=== PATIENT | female | born 1950 | race Two or more races ===

== ENCOUNTER 2018-10-29 16:29 | Inpatient (IN) | payer MEDICARE, OTHER ==
[~2018-10-29] VITALS: Ht 152.4 cm; Wt 54.0 kg
[2018-10-29 16:30] VITALS: BP 111/60
--- NOTE | 2018-10-29 16:30 | NUR ---
ED Nurse Note: Pt brought from [facility] due to pt pulled out G-Tube at noon today. pt aaox1 but cooperative and follows commands. G-tube site has yellow and green drainage and was irrigated with NS. skin clean and intact but pressure ulcer noted on coccyx. no drainage noted.
--- NOTE | 2018-10-29 18:00 | NUR ---
ED Nurse Note: G-Tube size 20Fr was inserted by Dr. Baires. pt tolerated pain well.
--- NOTE | 2018-10-29 18:30 | Emergency Room Report ---
History of Present Illness General Chief Complaint: Malfunctioning Gastric Tube Source: Patient, Medical Record, EMS, PMD Present Illness HPI This patient presents from a halfway facility for G-tube dislodgment. Earlier today around noon the patient pulled out her G-tube. There are no other complaints. Allergies: Coded Allergies: No Known Allergies (Unverified , 10/29/18) Patient History Past Medical History: none, see triage record, HTN, dementia, other - FTT Past Surgical History: other - G-TUBE Social History: Denies: smoking, alcohol use, drug use Reviewed Nursing Documentation: PMH: Agreed; PSxH: Agreed Nursing Documentation-PMH Hx Hypertension: Yes Hx Diabetes: Yes Review of Systems All Other Systems: negative except mentioned in HPI Physical Exam Vital Signs Date Time Temp Pulse Resp B/P (MAP) Pulse Ox O2 Delivery O2 Flow Rate FiO2 10/29/18 16:30 98.9 95 20 111/60 100 Room Air Sp02 EP Interpretation: reviewed, normal General Appearance: no apparent distress, alert, GCS 15, non-toxic Head: normocephalic, atraumatic Eyes: bilateral eye normal inspection ENT: hearing grossly normal, normal pharynx, no angioedema, normal voice Neck: full range of motion, supple/symm/no masses Respiratory: chest non-tender, lungs clear, normal breath sounds, no respiratory distress, no retraction, no accessory muscle use, speaking full sentences Cardiovascular #1: regular rate, rhythm, no edema Gastrointestinal: normal bowel sounds, non tender, soft, non-distended, no guarding, no rebound Rectal: deferred Musculoskeletal: back normal, gait/station normal, normal range of motion, non- tender Neurologic: alert, responsive, speech normal, grossly normal Psychiatric: judgement/insight normal, memory normal, mood/affect normal, no suicidal/homicidal ideation Skin: warm/dry, well hydrated, other - See RN skin exam Medical Decision Making Diagnostic Impression: Primary Impression: PEG (percutaneous endoscopic gastrostomy) adjustment/replacement/removal ER Course This patient presents for G-tube replacement. The G-tube was replaced in the typical manner without complication or incident. A KUB was obtained which showed Gastrografin consistent with appropriate placement in the stomach. The patient was returned to the halfway facility. Other X-Ray Diagnostic Results Other X-Ray Diagnostic Results : X-Ray ordered: KUB # of Views/Limited Vs Complete: 1 View Indication: Other - tube placement Interpretation: other - Findings c/w appropriate G-tube location. Impression: Other - See above. Electronically Signed by: Keeley Sharpe DO Last Vital Signs Date Time Temp Pulse Resp B/P (MAP) Pulse Ox O2 Delivery O2 Flow Rate FiO2 10/29/18 16:30 99.1 94 18 96/60 96 Room Air Status: improved Disposition: HOME, SELF-CARE Condition: Improved Patient Instructions: Gastrostomy Tube Home Guide, Adult Keeley Sharpe DO Oct 29, 2018 18:30
--- NOTE | 2018-10-29 18:41 | NUR ---
ED Nurse Note: KUB done with solution. and 100cc of NS was flushed.
--- NOTE | 2018-10-29 19:05 | NUR ---
ED Nurse Note: pt was moved to hallway bed due to stable condition.
--- NOTE | 2018-10-29 19:10 | NUR ---
HAND-OFF: Report given to SAMIR Castro. Addendum: 10/29/18 at 1939 by [email or web address] HAND-OFF: Report given to RN. GARIMA Castro done and waiting for the result for the G-tube placement.
--- NOTE | 2018-10-29 19:25 | NUR ---
ED Nurse Note: RECIEVED REPORT FROM AM NURSE TO RESUME CARE, PT IS IN HALLWAY BED, HAS BEEN MOVED FROM BED 6, NURSE UN-AWARE, ORDERS NOT COMPLETED, PT IS AWAKE, ALERT AND ORIENTED X 2, TO NAME AND PLACE ONLY, PT SON IS AT BEDSIDE, WILL RESUME ORDERD CARE AND CONTINUE TO CLOSELY MONITOR.
[2018-10-29] MEDS ORDERED: ACETAMINOP160 MG/5 M GT (19:39)
[2018-10-29] MEDS ORDERED: DOCUSATE S50 MG/5 ML GT (19:41)
[2018-10-29] MEDS ORDERED: LISINOPRIL-HCT1 EAC2 GT (19:45)
[2018-10-29] MEDS ORDERED: LISINOPRIL10 MG GT (19:45)
[2018-10-29] MEDS ORDERED: METOPROLOL SUCC50 MG GT (19:48)
[2018-10-29] MEDS ORDERED: REGLAN5 MG GT (19:48)
[2018-10-29] MEDS ORDERED: AMLODIPINE BESY10 MG GT (19:55)
[2018-10-29] MEDS ORDERED: EFFER-K 20 MEQ20 MEQ GT (20:00)
[2018-10-29] MEDS ORDERED: DIPHENHYDRAMINE25 M1 ORAL (20:00)
[2018-10-29] MEDS ORDERED: LANTUS SOL100 UNIT/1 SUBQ (20:03)
[2018-10-29] MEDS ORDERED: ZOFRAN4 M3 GT (20:04)
[2018-10-29] MEDS ORDERED: MULTIVITAMINS1 EAC8 GT (20:05)
[2018-10-29 20:15] VITALS: BP 122/71
[2018-10-29 20:45] LABS: BASOPHILS % (AUTO) 2.4 % (0.0-2.0); EOSINOPHILS % (AUTO) 2.3 % (0.0-3.0); HEMATOCRIT 30.8 % (37.0-47.0); HEMOGLOBIN 9.9 G/DL (12.0-16.0); LYMPHOCYTES % (AUTO) 24.7 % (20.0-45.0); MEAN CORPUSCULAR VOLUME 90 FL (80-99); MONOCYTES % (AUTO) 11.3 % (1.0-10.0); NEUTROPHILS % (AUTO) 59.3 % (45.0-75.0); PLATELET COUNT 606 K/UL (150-450); RED BLOOD COUNT 3.43 M/UL (4.20-5.40); RED CELL DISTRIBUTION WIDTH 16.5 % (11.6-14.8); WHITE BLOOD COUNT 8.5 K/UL (4.8-10.8)
--- NOTE | 2018-10-29 21:00 | NUR ---
ED Nurse Note: NO ACUTE CHANGES OR INCREASED DISTRESS, PT TO BE ADMITTED, IV SITE PATENT, RECIEVING IV ANTIBIOTICS, NO S/S OF ADVERSE REACTION NOTED, TOLERATING WELL, PT ALSO INCONTINENT OF URINE AND STOOL, GIVEN BATH AND LINEN CHANGE, SKIN IS INTACT, WILL CONTINUE OT MONITOR WHILE WAITING FOR BED FOR ADMISISON TO HOSPITAL.
[2018-10-29 21:01] LABS: ALANINE AMINOTRANSFERASE 19 U/L (12-78); ALBUMIN 2.6 G/DL (3.4-5.0); ALBUMIN/GLOBULIN RATIO 0.4 (1.0-2.7); ALKALINE PHOSPHATASE 112 U/L (46-116); ANION GAP 6 mmol/L (5-15); ASPARTATE AMINO TRANSFERASE 19 U/L (15-37); BILIRUBIN,TOTAL 0.3 MG/DL (0.2-1.0); BLOOD UREA NITROGEN 18 mg/dL (7-18); CARBON DIOXIDE 32 MMOL/L (21-32); CHLORIDE 99 MMOL/L (98-107); CREATININE 0.7 MG/DL (0.55-1.30); POTASSIUM 4.1 MMOL/L (3.5-5.1); SODIUM 137 MMOL/L (136-145)
[2018-10-29 21:15] LABS: APPEARANCE,URINE CLOUDY; BILIRUBIN, URINE NEGATIVE (NEGATIVE); COLOR,URINE PALE YELLOW; GLUCOSE, URINE (UA) NEGATIVE (NEGATIVE); KETONES,URINE NEGATIVE (NEGATIVE); LEUKOCYTE ESTERASE ,URINE 3+ (NEGATIVE); NITRITE,URINE NEGATIVE (NEGATIVE); PH,URINE 8 (4.5-8.0); PROTEIN,URINE 2+ (NEGATIVE); UROBILINOGEN,URINE NORMAL MG/DL (0.0-1.0)
[2018-10-29] MEDS ORDERED: cefTRIAXone 1 GM in NS 55 ML IVPB ONE (21:45)
[2018-10-29] MEDS ORDERED: Morphine Sulfate 2mg/ml Inj(IV/IM USE ONLY) IVP PRN (22:30)
[2018-10-29] MEDS ORDERED: Albuterol/Ipratropium 3ml neb HHN PRN (22:30)
[2018-10-29] MEDS ORDERED: Miralax 17gm pkt ORAL PRN (22:30)
--- NOTE | 2018-10-29 23:00 | NUR ---
ED Nurse Note: PT BEING ADMITTED TO FLOOR BED, PT RESTING QUIETLY, NO ACUTE CHAGNES OR INCREASED DISTRESS, IV SITE PATENT, BELONGINGS LIST COMPLETED, REPORT GIVEN, PT BEING TAKEN TO FLOOR BED VIA GURNEY WITH ER-TECH, NAD NOTED DURING PT TRANSPORT.
--- NOTE | 2018-10-29 23:35 | NUR ---
NURSE NOTES: Received patient from ER via [facility], report given by Claribel RN via phone, patient is AOx2, no s/s of distress, denies any pain. IV line patent and intact, GT noted on left upper abdominal quadrant, skin assessment done. Oriented to room and discussed safety, needs reinforcement. Patient belongings checked and verified. Bed in low position and locked, call light within reach, Dr. Echevarria put in orders, will continue to monitor.
[2018-10-30] VITALS: BP 121/84
[2018-10-30] MEDS ORDERED: Vancomycin 1 GM in D5W 275 ML IVPB SCH (00:30)
[2018-10-30 04:00] VITALS: BP 113/70
--- NOTE | 2018-10-30 07:41 | NUR ---
HAND-OFF: Report given to Davidson DAWSON.
--- NOTE | 2018-10-30 07:41 | NUR ---
NURSE NOTES: received report form SAMIR Craig. patient in bed. sleeping. no respiratory distress noted. breathing even and unlabored. bed in the lowest position. call light within reach. alarm on. will continue to monitor.
[2018-10-30 08:00] VITALS: BP 130/85
[2018-10-30 08:01] LABS: BASOPHILS % (AUTO) 2.1 % (0.0-2.0); EOSINOPHILS % (AUTO) 1.9 % (0.0-3.0); HEMATOCRIT 28.5 % (37.0-47.0); HEMOGLOBIN 9.1 G/DL (12.0-16.0); LYMPHOCYTES % (AUTO) 26.9 % (20.0-45.0); MEAN CORPUSCULAR VOLUME 90 FL (80-99); MONOCYTES % (AUTO) 14.3 % (1.0-10.0); NEUTROPHILS % (AUTO) 54.9 % (45.0-75.0); PLATELET COUNT 558 K/UL (150-450); RED BLOOD COUNT 3.16 M/UL (4.20-5.40); RED CELL DISTRIBUTION WIDTH 16.2 % (11.6-14.8); WHITE BLOOD COUNT 7.4 K/UL (4.8-10.8)
[2018-10-30 08:31] LABS: ALANINE AMINOTRANSFERASE 13 U/L (12-78); ALBUMIN 2.5 G/DL (3.4-5.0); ALBUMIN/GLOBULIN RATIO 0.4 (1.0-2.7); ALKALINE PHOSPHATASE 105 U/L (46-116); ANION GAP 11 mmol/L (5-15); ASPARTATE AMINO TRANSFERASE 16 U/L (15-37); BILIRUBIN,TOTAL 0.3 MG/DL (0.2-1.0); BLOOD UREA NITROGEN 18 mg/dL (7-18); CARBON DIOXIDE 29 MMOL/L (21-32); CHLORIDE 97 MMOL/L (98-107); CREATININE 0.7 MG/DL (0.55-1.30); SODIUM 137 MMOL/L (136-145)
[2018-10-30] MEDS ORDERED: Cefepime HCl 2 GM in D5W 110 ML IV SCH (09:00)
[2018-10-30] MEDS: Docusate 100mg/10ml Liq GT SCH ×2 (09:17→17:47)
[2018-10-30] MEDS: Lisinopril 10mg tab GT SCH (09:18)
[2018-10-30] MEDS: Heparin 5000 units/ml inj SUBQ SCH ×2 (09:19→20:32)
[2018-10-30] MEDS: Metoprolol Succinate XL 25mg tab ORAL SCH (09:22)
--- NOTE | 2018-10-30 09:30 | NUR ---
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
--- NOTE | 2018-10-30 11:55 | GI Initial Consult Note ---
History of Present Illness General Date patient seen: Oct 30, 2018 Time patient seen: 11:50 Reason for Hospitalization: Malfunctioning Gastric Tube Referring physician: RANDAL BABIN Reason for Consultation: Malfunctioning G-tube Present Illness HPI GI consulted for G-tube dislodgment. Per report, the patient had recently pulled out her G-tube and was admitted to the hospital for replacement. G-tube was changed in the ED. it was also reported that the patient was on a regular diet at the [facility]. The patient was seen, awake alert and oriented in no apparent distress. Denied any abdominal pain, constipation or diarrhea. Denied any nausea or vomiting. The patient is a poor historian, unable to recall any past medical or surgical history. Labs reviewed; hemoglobin 9.1. No leukocytosis, no transaminitis. Home Meds Reported Medications Multivitamin With Minerals (MULTIVITAMINS WITH MINERALS*) 1 Each Tablet, 1 TAB GT DAILY, TAB 10/29/18 Ondansetron* (ZOFRAN*) 4 Mg Tablet, 4 MG GT Q4HR PRN for Nausea & Vomiting, TAB 10/29/18 Insulin Glargine (LANTUS) 100 Unit/1 Ml Insuln.pen, 12 SUBQ BEDTIME for DIABETES , EA 0 Refills 10/29/18 Diphenhydramine Hcl* (DIPHENHYDRAMINE HCL*) 25 Mg Capsule, 25 MG ORAL Q6H PRN for Itching, CAP 0 Refills 10/29/18 Potassium Bicarbonate/Cit Ac (EFFER-K 20 MEQ TABLET EFF) 20 Meq Tablet.eff, 20 MEQ GT DAILY, TAB 10/29/18 Amlodipine Besylate* (AMLODIPINE BESYLATE*) 10 Mg Tablet, 10 MG GT DAILY, TAB 10/29/18 Metoprolol Succinate* (METOPROLOL SUCCINATE*) 50 Mg Tab.er.24h, 75 MG GT DAILY for HTN, CAP 10/29/18 Metoclopramide Hcl* (REGLAN*) 5 Mg Tablet, 5 MG GT QID for GI PPX, TAB 10/29/18 Lisinopril/Hydrochlorothiazide 20-25 Mg Tab (LISINOPRIL-HCTZ 20-25 MG TAB) 1 Each Tablet, 2 TAB GT BID for HTN, TAB 10/29/18 Lisinopril* (LISINOPRIL*) 10 Mg Tablet, 10 MG GT DAILY for HTN, TAB 10/29/18 Docusate Sodium (DOCUSATE SODIUM) 50 Mg/5 Ml Liquid, 100 MG GT BID, ML 10/29/18 Acetaminophen 160MG/5ML* (ACETAMINOPHEN*) 160 Mg/5 Ml Elixir, 20 ML GT EVERY 6 HOURS for PAIN, ML 10/29/18 Med list reviewed/reconciled: Yes Allergies: Coded Allergies: No Known Allergies (Unverified , 10/29/18) Patient History Limited by: medical condition History Provided By: Medical Record PMH Narrative Past Medical History: none, see triage record, HTN, dementia, other - FTT Past Surgical History: other - G-TUBE Social History: Denies: smoking, alcohol use, drug use Reviewed Nursing Documentation: PMH: Agreed; PSxH: Agreed Nursing Documentation-PMH Hx Hypertension: Yes Hx Diabetes: Yes Social History: Denies: smoking, alcohol use, drug use, other Review of Systems All Other Systems: negative except mentioned in HPI Physical Exam Vital Signs Date Time Temp Pulse Resp B/P (MAP) Pulse Ox O2 Delivery O2 Flow Rate FiO2 10/29/18 16:30 98.9 95 20 111/60 100 Room Air Sp02 EP Interpretation: reviewed, normal Labs Laboratory Tests Test 10/29/18 20:20 10/29/18 21:00 10/30/18 05:18 White Blood Count 8.5 K/UL (4.8-10.8) 7.4 K/UL (4.8-10.8) Red Blood Count 3.43 M/UL (4.20-5.40) L 3.16 M/UL (4.20-5.40) L Hemoglobin 9.9 G/DL (12.0-16.0) L 9.1 G/DL (12.0-16.0) L Hematocrit 30.8 % (37.0-47.0) L 28.5 % (37.0-47.0) L Mean Corpuscular Volume 90 FL (80-99) 90 FL (80-99) Mean Corpuscular Hemoglobin 28.9 PG (27.0-31.0) 28.6 PG (27.0-31.0) Mean Corpuscular Hemoglobin Concent 32.2 G/DL (32.0-36.0) 31.7 G/DL (32.0-36.0) L Red Cell Distribution Width 16.5 % (11.6-14.8) H 16.2 % (11.6-14.8) H Platelet Count 606 K/UL (150-450) H 558 K/UL (150-450) H Mean Platelet Volume 5.5 FL (6.5-10.1) L 5.3 FL (6.5-10.1) L Neutrophils (%) (Auto) 59.3 % (45.0-75.0) 54.9 % (45.0-75.0) Lymphocytes (%) (Auto) 24.7 % (20.0-45.0) 26.9 % (20.0-45.0) Monocytes (%) (Auto) 11.3 % (1.0-10.0) H 14.3 % (1.0-10.0) H Eosinophils (%) (Auto) 2.3 % (0.0-3.0) 1.9 % (0.0-3.0) Basophils (%) (Auto) 2.4 % (0.0-2.0) H 2.1 % (0.0-2.0) H Sodium Level 137 MMOL/L (136-145) 137 MMOL/L (136-145) Potassium Level 4.1 MMOL/L (3.5-5.1) 4.0 MMOL/L (3.5-5.1) Chloride Level 99 MMOL/L (98-107) 97 MMOL/L (98-107) L Carbon Dioxide Level 32 MMOL/L (21-32) 29 MMOL/L (21-32) Anion Gap 6 mmol/L (5-15) 11 mmol/L (5-15) Blood Urea Nitrogen 18 mg/dL (7-18) 18 mg/dL (7-18) Creatinine 0.7 MG/DL (0.55-1.30) 0.7 MG/DL (0.55-1.30) Estimat Glomerular Filtration Rate > 60 mL/min (>60) > 60 mL/min (>60) Glucose Level 129 MG/DL (74-106) H 118 MG/DL (74-106) H Calcium Level 10.0 MG/DL (8.5-10.1) 10.0 MG/DL (8.5-10.1) Total Bilirubin 0.3 MG/DL (0.2-1.0) 0.3 MG/DL (0.2-1.0) Aspartate Amino Transf (AST/SGOT) 19 U/L (15-37) 16 U/L (15-37) Alanine Aminotransferase (ALT/SGPT) 19 U/L (12-78) 13 U/L (12-78) Alkaline Phosphatase 112 U/L (46-116) 105 U/L (46-116) Total Protein 8.8 G/DL (6.4-8.2) H 8.6 G/DL (6.4-8.2) H Albumin 2.6 G/DL (3.4-5.0) L 2.5 G/DL (3.4-5.0) L Globulin 6.2 g/dL 6.1 g/dL Albumin/Globulin Ratio 0.4 (1.0-2.7) L 0.4 (1.0-2.7) L Urine Color Pale yellow Urine Appearance Cloudy Urine pH 8 (4.5-8.0) Urine Specific [place] 1.010 (1.005-1.035) Urine Protein 2+ (NEGATIVE) H Urine Glucose (UA) Negative (NEGATIVE) Urine Ketones Negative (NEGATIVE) Urine Blood 3+ (NEGATIVE) H Urine Nitrite Negative (NEGATIVE) Urine Bilirubin Negative (NEGATIVE) Urine Urobilinogen Normal MG/DL (0.0-1.0) Urine Leukocyte Esterase 3+ (NEGATIVE) H Urine RBC 2-4 /HPF (0 - 2) H Urine WBC Tntc /HPF (0 - 2) H Urine Squamous Epithelial Cells Few /LPF (NONE/OCC) Urine Bacteria Moderate /HPF (NONE) H General Appearance: well appearing, no apparent distress, alert Head: normocephalic EENT: PERRL/EOMI, normal ENT inspection Neck: supple Respiratory: normal breath sounds, no respiratory distress Cardiovascular: normal rate Gastrointestinal: normal inspection, non tender, soft, normal bowel sounds, non -distended, gt - Clean dry and intact Rectal: deferred Genitourinary: no CVA tenderness Musculoskeletal: normal inspection, back normal Neurologic: normal inspection, alert, oriented x3, responsive Psychiatric: normal inspection, judgement/insight normal, memory normal Skin: normal inspection, normal color, no rash, warm/dry, palpation normal, well hydrated Lymphatic: normal inspection, no adenopathy Current Medications Current Medications Medications (Trade) Dose Ordered Sig/Bia Route PRN Reason Start Time Stop Time Status Last Admin Dose Admin Acetaminophen (Tylenol) 650 mg Q4H PRN ORAL fever 10/29/18 22:30 11/28/18 22:29 Albuterol/ Ipratropium (Albuterol/ Ipratropium) 3 ml Q4H PRN HHN Shortness of Breath 10/29/18 22:30 11/03/18 22:29 Amlodipine Besylate (Norvasc) 10 mg DAILY GT 10/30/18 09:00 11/29/18 08:59 10/30/18 09:18 Cefepime HCl 2 gm/ Dextrose 110 ml @ 220 mls/hr Q24H IV 10/30/18 09:00 11/06/18 08:59 10/30/18 09:18 Docusate Sodium (Colace) 100 mg BID GT 10/30/18 09:00 11/29/18 08:59 10/30/18 09:17 Heparin Sodium (Porcine) (Heparin 5000 units/ml) 5,000 units EVERY 12 HOURS SUBQ 10/30/18 09:00 11/29/18 08:59 10/30/18 09:19 Lisinopril (Zestril) 10 mg DAILY GT 10/30/18 09:00 11/29/18 08:59 10/30/18 09:18 Metoprolol Succinate (Toprol XL) 75 mg DAILY ORAL 10/30/18 09:00 11/29/18 08:59 10/30/18 09:22 Morphine Sulfate (Morphine Sulfate) 2 mg Q4H PRN IVP Moderate Pain (Pain Scale 4-6) 10/29/18 22:30 11/05/18 22:29 Ondansetron HCl (Zofran) 4 mg Q6H PRN IVP Nausea & Vomiting 10/29/18 22:30 11/28/18 22:29 Polyethylene Glycol (Miralax) 17 gm DAILYPRN PRN ORAL Constipation 10/29/18 22:30 11/28/18 22:29 Temazepam (Restoril) 15 mg HSPRN PRN ORAL Insomnia 10/29/18 22:30 11/05/18 22:29 Vancomycin HCl 1 gm/Dextrose 275 ml @ 183.3 mls/ hr Q24H IVPB 10/30/18 00:30 11/04/18 00:29 10/30/18 00:10 GI: Plan Problems: (1) Normocytic anemia (2) PEG (percutaneous endoscopic gastrostomy) adjustment/replacement/removal Plan Obtain chest x-ray with Gastrografin to confirm G-tube placement Obtain ST evaluation for oral gratification Maintain n.p.o. until seen by [facility] to start G-tube feedings per registered dietitian once imaging studies confirmed anemia work up OB stool r/o GI bleed monitor H&H, prn transfusions bowel regime ppi fu labs Discussed with Dr. Shepherd. Thank you for this patient referral, we will follow. The patient was seen and examined at bedside and all new and available data was reviewed in the patients chart. I agree with the above findings, impression and plan. (Patient seen earlier today. Signature stamp does not reflect patient encounter time.). - MD Ivonne Eldridge AnhDana FISH HATCHERY INSPECTOR Oct 30, 2018 11:55
[2018-10-30 12:00] VITALS: BP 115/65
--- NOTE | 2018-10-30 12:44 | Consultation ---
History of Present Illness General Date patient seen: Oct 30, 2018 Chief Complaint: Malfunctioning Gastric Tube Referring physician: RANDAL BABIN Reason for Consultation: inpatient management Present Illness HPI 68 year old female with hx of HTN, dementia, G-TUBE, presented from a nursing facility for G-tube dislodgment. Earlier today around noon the patient pulled out her G-tube. There are no other complaints. Pt looks chronically ill and doesn't answer questions properly. Allergies: Coded Allergies: No Known Allergies (Unverified , 10/29/18) Medication History Scheduled Acetaminophen 160MG/5ML* (Acetaminophen*), 20 ML GT EVERY 6 HOURS, (Reported) Amlodipine Besylate* (Amlodipine Besylate*), 10 MG GT DAILY, (Reported) Docusate Sodium (Docusate Sodium), 100 MG GT BID, (Reported) Insulin Glargine (Lantus), 12 SUBQ BEDTIME, (Reported) Lisinopril* (Lisinopril*), 10 MG GT DAILY, (Reported) Lisinopril/Hydrochlorothiazide 20-25 Mg Tab (Lisinopril-Hctz 20-25 Mg Tab), 2 TAB GT BID, (Reported) Metoclopramide Hcl* (Reglan*), 5 MG GT QID, (Reported) Metoprolol Succinate* (Metoprolol Succinate*), 75 MG GT DAILY, (Reported) Multivitamin With Minerals (Multivitamins With Minerals*), 1 TAB GT DAILY, ( Reported) Potassium Bicarbonate/Cit Ac (Effer-K 20 Meq Tablet Eff), 20 MEQ GT DAILY, ( Reported) Scheduled PRN Diphenhydramine Hcl* (Diphenhydramine Hcl*), 25 MG ORAL Q6H PRN for Itching, ( Reported) Ondansetron* (Zofran*), 4 MG GT Q4HR PRN for Nausea & Vomiting, (Reported) Patient History Healthcare decision maker Resuscitation status Full Code Advanced Directive on File No Past Medical/Surgical History Past Medical/Surgical History: (1) Diabetes mellitus (2) Hypertension (3) Alzheimer's dementia Review of Systems All Other Systems: negative except mentioned in HPI Physical Exam General Appearance: cachetic Lines, tubes and drains: peripheral HEENT: normocephalic, atraumatic Neck: non-tender, normal alignment Respiratory/Chest: chest wall non-tender, lungs clear Breasts: no masses Cardiovascular/Chest: normal rate, no JVD Abdomen: normal bowel sounds, hyperactive bowel sounds Genitourinary/Rectal: normal genital exam, normal prostate exam Last 24 Hour Vital Signs Date Time Temp Pulse Resp B/P (MAP) Pulse Ox O2 Delivery O2 Flow Rate FiO2 10/30/18 09:22 100 130/85 10/30/18 09:18 130/85 10/30/18 09:18 100 130/85 10/30/18 09:00 Room Air 10/30/18 08:00 97.7 100 20 130/85 (100) 97 10/30/18 04:00 99.0 98 18 113/70 (84) 99 10/30/18 00:36 Room Air 10/30/18 00:00 99.7 99 18 121/84 (96) 97 99 10/29/18 23:00 98.9 95 16 122/71 100 Room Air 88 10/29/18 20:15 98.9 88 16 122/71 100 Room Air 10/29/18 16:30 99.1 94 18 96/60 96 Room Air 10/29/18 16:30 98.9 95 20 111/60 100 Room Air Intake and Output 10/29/18 10/30/18 19:00 07:00 Intake Total 0 ml Balance 0 ml Intake Oral 0 ml # Voids 1 2 Laboratory Tests Test 10/29/18 20:20 10/29/18 21:00 10/30/18 05:18 White Blood Count 8.5 K/UL (4.8-10.8) 7.4 K/UL (4.8-10.8) Red Blood Count 3.43 M/UL (4.20-5.40) L 3.16 M/UL (4.20-5.40) L Hemoglobin 9.9 G/DL (12.0-16.0) L 9.1 G/DL (12.0-16.0) L Hematocrit 30.8 % (37.0-47.0) L 28.5 % (37.0-47.0) L Mean Corpuscular Volume 90 FL (80-99) 90 FL (80-99) Mean Corpuscular Hemoglobin 28.9 PG (27.0-31.0) 28.6 PG (27.0-31.0) Mean Corpuscular Hemoglobin Concent 32.2 G/DL (32.0-36.0) 31.7 G/DL (32.0-36.0) L Red Cell Distribution Width 16.5 % (11.6-14.8) H 16.2 % (11.6-14.8) H Platelet Count 606 K/UL (150-450) H 558 K/UL (150-450) H Mean Platelet Volume 5.5 FL (6.5-10.1) L 5.3 FL (6.5-10.1) L Neutrophils (%) (Auto) 59.3 % (45.0-75.0) 54.9 % (45.0-75.0) Lymphocytes (%) (Auto) 24.7 % (20.0-45.0) 26.9 % (20.0-45.0) Monocytes (%) (Auto) 11.3 % (1.0-10.0) H 14.3 % (1.0-10.0) H Eosinophils (%) (Auto) 2.3 % (0.0-3.0) 1.9 % (0.0-3.0) Basophils (%) (Auto) 2.4 % (0.0-2.0) H 2.1 % (0.0-2.0) H Sodium Level 137 MMOL/L (136-145) 137 MMOL/L (136-145) Potassium Level 4.1 MMOL/L (3.5-5.1) 4.0 MMOL/L (3.5-5.1) Chloride Level 99 MMOL/L (98-107) 97 MMOL/L (98-107) L Carbon Dioxide Level 32 MMOL/L (21-32) 29 MMOL/L (21-32) Anion Gap 6 mmol/L (5-15) 11 mmol/L (5-15) Blood Urea Nitrogen 18 mg/dL (7-18) 18 mg/dL (7-18) Creatinine 0.7 MG/DL (0.55-1.30) 0.7 MG/DL (0.55-1.30) Estimat Glomerular Filtration Rate > 60 mL/min (>60) > 60 mL/min (>60) Glucose Level 129 MG/DL (74-106) H 118 MG/DL (74-106) H Calcium Level 10.0 MG/DL (8.5-10.1) 10.0 MG/DL (8.5-10.1) Total Bilirubin 0.3 MG/DL (0.2-1.0) 0.3 MG/DL (0.2-1.0) Aspartate Amino Transf (AST/SGOT) 19 U/L (15-37) 16 U/L (15-37) Alanine Aminotransferase (ALT/SGPT) 19 U/L (12-78) 13 U/L (12-78) Alkaline Phosphatase 112 U/L (46-116) 105 U/L (46-116) Total Protein 8.8 G/DL (6.4-8.2) H 8.6 G/DL (6.4-8.2) H Albumin 2.6 G/DL (3.4-5.0) L 2.5 G/DL (3.4-5.0) L Globulin 6.2 g/dL 6.1 g/dL Albumin/Globulin Ratio 0.4 (1.0-2.7) L 0.4 (1.0-2.7) L Urine Color Pale yellow Urine Appearance Cloudy Urine pH 8 (4.5-8.0) Urine Specific [place] 1.010 (1.005-1.035) Urine Protein 2+ (NEGATIVE) H Urine Glucose (UA) Negative (NEGATIVE) Urine Ketones Negative (NEGATIVE) Urine Blood 3+ (NEGATIVE) H Urine Nitrite Negative (NEGATIVE) Urine Bilirubin Negative (NEGATIVE) Urine Urobilinogen Normal MG/DL (0.0-1.0) Urine Leukocyte Esterase 3+ (NEGATIVE) H Urine RBC 2-4 /HPF (0 - 2) H Urine WBC Tntc /HPF (0 - 2) H Urine Squamous Epithelial Cells Few /LPF (NONE/OCC) Urine Bacteria Moderate /HPF (NONE) H Microbiology Date/Time Source Procedure Growth Status 10/29/18 21:00 Urine,Clean Catch Urine Culture - Preliminary Resulted 10/29/18 22:00 Rectum Received Height (Feet): 5 Height (Inches): 0.00 Weight (Pounds): 119 Medications Current Medications Medications (Trade) Dose Ordered Sig/Bia Route PRN Reason Start Time Stop Time Status Last Admin Dose Admin Acetaminophen (Tylenol) 650 mg Q4H PRN ORAL fever 10/29/18 22:30 11/28/18 22:29 Albuterol/ Ipratropium (Albuterol/ Ipratropium) 3 ml Q4H PRN HHN Shortness of Breath 10/29/18 22:30 11/03/18 22:29 Amlodipine Besylate (Norvasc) 10 mg DAILY GT 10/30/18 09:00 11/29/18 08:59 10/30/18 09:18 Cefepime HCl 2 gm/ Dextrose 110 ml @ 220 mls/hr Q24H IV 10/30/18 09:00 11/06/18 08:59 10/30/18 09:18 Docusate Sodium (Colace) 100 mg BID GT 10/30/18 09:00 11/29/18 08:59 10/30/18 09:17 Heparin Sodium (Porcine) (Heparin 5000 units/ml) 5,000 units EVERY 12 HOURS SUBQ 10/30/18 09:00 11/29/18 08:59 10/30/18 09:19 Lisinopril (Zestril) 10 mg DAILY GT 10/30/18 09:00 11/29/18 08:59 10/30/18 09:18 Metoprolol Succinate (Toprol XL) 75 mg DAILY ORAL 10/30/18 09:00 11/29/18 08:59 10/30/18 09:22 Morphine Sulfate (Morphine Sulfate) 2 mg Q4H PRN IVP Moderate Pain (Pain Scale 4-6) 10/29/18 22:30 11/05/18 22:29 Ondansetron HCl (Zofran) 4 mg Q6H PRN IVP Nausea & Vomiting 10/29/18 22:30 11/28/18 22:29 Polyethylene Glycol (Miralax) 17 gm DAILYPRN PRN ORAL Constipation 10/29/18 22:30 11/28/18 22:29 Temazepam (Restoril) 15 mg HSPRN PRN ORAL Insomnia 10/29/18 22:30 11/05/18 22:29 Vancomycin HCl 1 gm/Dextrose 275 ml @ 183.3 mls/ hr Q24H IVPB 10/30/18 00:30 11/04/18 00:29 10/30/18 00:10 Assessment/Plan Problem List: (1) Hypertension ICD Codes: I10 - Essential (primary) hypertension SNOMED: 86820910 (2) Diabetes mellitus ICD Codes: E11.9 - Type 2 diabetes mellitus without complications SNOMED: 95794905 (3) Alzheimer's dementia ICD Codes: G30.9 - Alzheimer's disease, unspecified; F02.80 - Dementia in other diseases classified elsewhere without behavioral disturbance SNOMED: 16654514 (4) PEG (percutaneous endoscopic gastrostomy) adjustment/replacement/removal ICD Codes: Z43.1 - Encounter for attention to gastrostomy SNOMED: 724542775, 583895290 Assessment/Plan GI evaluation aspiration precaution IV fluids symptomatic treatment check electrolytes dvt prophylaxis. Roberto Echevarria MD Oct 30, 2018 12:44
--- NOTE | 2018-10-30 13:00 | Diagnostic Imaging Report ---
Indication: Abdominal pain Comparison: None Single view of the abdomen obtained Findings: There is contrast material within the stomach. The gastrostomy balloon is projected within the stomach lumen. There is no extravasation of contrast identified. IMPRESSION: Gastrostomy tube within the stomach. No leak identified.
--- NOTE | 2018-10-30 13:25 | Consultation ---
History of Present Illness General Date patient seen: Oct 30, 2018 Chief Complaint: Malfunctioning Gastric Tube Referring physician: RANDAL BABIN Reason for Consultation: inpatient management Present Illness HPI 68 y/o F with hx of HTN, Dementia, dysphagia s/p GT, FTT, SNF resident presents to ED on 10/29 after GT dislodgement. Allergies: Coded Allergies: No Known Allergies (Unverified , 10/29/18) Medication History Scheduled Acetaminophen 160MG/5ML* (Acetaminophen*), 20 ML GT EVERY 6 HOURS, (Reported) Amlodipine Besylate* (Amlodipine Besylate*), 10 MG GT DAILY, (Reported) Docusate Sodium (Docusate Sodium), 100 MG GT BID, (Reported) Insulin Glargine (Lantus), 12 SUBQ BEDTIME, (Reported) Lisinopril* (Lisinopril*), 10 MG GT DAILY, (Reported) Lisinopril/Hydrochlorothiazide 20-25 Mg Tab (Lisinopril-Hctz 20-25 Mg Tab), 2 TAB GT BID, (Reported) Metoclopramide Hcl* (Reglan*), 5 MG GT QID, (Reported) Metoprolol Succinate* (Metoprolol Succinate*), 75 MG GT DAILY, (Reported) Multivitamin With Minerals (Multivitamins With Minerals*), 1 TAB GT DAILY, ( Reported) Potassium Bicarbonate/Cit Ac (Effer-K 20 Meq Tablet Eff), 20 MEQ GT DAILY, ( Reported) Scheduled PRN Diphenhydramine Hcl* (Diphenhydramine Hcl*), 25 MG ORAL Q6H PRN for Itching, ( Reported) Ondansetron* (Zofran*), 4 MG GT Q4HR PRN for Nausea & Vomiting, (Reported) Patient History Healthcare decision maker Resuscitation status Full Code Advanced Directive on File No Patient History Narrative Pmhx: as above Shx: Denies: smoking, alcohol use, drug use Fhx non contributory Review of Systems All Other Systems: negative except mentioned in HPI Physical Exam Physical Exam Narrative General Appearance: cachetic Lines, tubes and drains: peripheral HEENT: normocephalic, atraumatic Neck: non-tender, normal alignment Respiratory/Chest: chest wall non-tender, lungs clear Breasts: no masses Cardiovascular/Chest: normal rate, no JVD Abdomen: normal bowel sounds, hyperactive bowel sounds Genitourinary/Rectal: normal genital exam, normal prostate exam Last 24 Hour Vital Signs Date Time Temp Pulse Resp B/P (MAP) Pulse Ox O2 Delivery O2 Flow Rate FiO2 10/30/18 09:22 100 130/85 10/30/18 09:18 130/85 10/30/18 09:18 100 130/85 10/30/18 09:00 Room Air 10/30/18 08:00 97.7 100 20 130/85 (100) 97 10/30/18 04:00 99.0 98 18 113/70 (84) 99 10/30/18 00:36 Room Air 10/30/18 00:00 99.7 99 18 121/84 (96) 97 99 10/29/18 23:00 98.9 95 16 122/71 100 Room Air 88 10/29/18 20:15 98.9 88 16 122/71 100 Room Air 10/29/18 16:30 99.1 94 18 96/60 96 Room Air 10/29/18 16:30 98.9 95 20 111/60 100 Room Air Intake and Output 10/29/18 10/30/18 18:59 06:59 Intake Total 0 ml Balance 0 ml Intake Oral 0 ml # Voids 1 2 Laboratory Tests Test 10/29/18 20:20 10/29/18 21:00 10/30/18 05:18 White Blood Count 8.5 K/UL (4.8-10.8) 7.4 K/UL (4.8-10.8) Red Blood Count 3.43 M/UL (4.20-5.40) L 3.16 M/UL (4.20-5.40) L Hemoglobin 9.9 G/DL (12.0-16.0) L 9.1 G/DL (12.0-16.0) L Hematocrit 30.8 % (37.0-47.0) L 28.5 % (37.0-47.0) L Mean Corpuscular Volume 90 FL (80-99) 90 FL (80-99) Mean Corpuscular Hemoglobin 28.9 PG (27.0-31.0) 28.6 PG (27.0-31.0) Mean Corpuscular Hemoglobin Concent 32.2 G/DL (32.0-36.0) 31.7 G/DL (32.0-36.0) L Red Cell Distribution Width 16.5 % (11.6-14.8) H 16.2 % (11.6-14.8) H Platelet Count 606 K/UL (150-450) H 558 K/UL (150-450) H Mean Platelet Volume 5.5 FL (6.5-10.1) L 5.3 FL (6.5-10.1) L Neutrophils (%) (Auto) 59.3 % (45.0-75.0) 54.9 % (45.0-75.0) Lymphocytes (%) (Auto) 24.7 % (20.0-45.0) 26.9 % (20.0-45.0) Monocytes (%) (Auto) 11.3 % (1.0-10.0) H 14.3 % (1.0-10.0) H Eosinophils (%) (Auto) 2.3 % (0.0-3.0) 1.9 % (0.0-3.0) Basophils (%) (Auto) 2.4 % (0.0-2.0) H 2.1 % (0.0-2.0) H Sodium Level 137 MMOL/L (136-145) 137 MMOL/L (136-145) Potassium Level 4.1 MMOL/L (3.5-5.1) 4.0 MMOL/L (3.5-5.1) Chloride Level 99 MMOL/L (98-107) 97 MMOL/L (98-107) L Carbon Dioxide Level 32 MMOL/L (21-32) 29 MMOL/L (21-32) Anion Gap 6 mmol/L (5-15) 11 mmol/L (5-15) Blood Urea Nitrogen 18 mg/dL (7-18) 18 mg/dL (7-18) Creatinine 0.7 MG/DL (0.55-1.30) 0.7 MG/DL (0.55-1.30) Estimat Glomerular Filtration Rate > 60 mL/min (>60) > 60 mL/min (>60) Glucose Level 129 MG/DL (74-106) H 118 MG/DL (74-106) H Calcium Level 10.0 MG/DL (8.5-10.1) 10.0 MG/DL (8.5-10.1) Total Bilirubin 0.3 MG/DL (0.2-1.0) 0.3 MG/DL (0.2-1.0) Aspartate Amino Transf (AST/SGOT) 19 U/L (15-37) 16 U/L (15-37) Alanine Aminotransferase (ALT/SGPT) 19 U/L (12-78) 13 U/L (12-78) Alkaline Phosphatase 112 U/L (46-116) 105 U/L (46-116) Total Protein 8.8 G/DL (6.4-8.2) H 8.6 G/DL (6.4-8.2) H Albumin 2.6 G/DL (3.4-5.0) L 2.5 G/DL (3.4-5.0) L Globulin 6.2 g/dL 6.1 g/dL Albumin/Globulin Ratio 0.4 (1.0-2.7) L 0.4 (1.0-2.7) L Urine Color Pale yellow Urine Appearance Cloudy Urine pH 8 (4.5-8.0) Urine Specific [place] 1.010 (1.005-1.035) Urine Protein 2+ (NEGATIVE) H Urine Glucose (UA) Negative (NEGATIVE) Urine Ketones Negative (NEGATIVE) Urine Blood 3+ (NEGATIVE) H Urine Nitrite Negative (NEGATIVE) Urine Bilirubin Negative (NEGATIVE) Urine Urobilinogen Normal MG/DL (0.0-1.0) Urine Leukocyte Esterase 3+ (NEGATIVE) H Urine RBC 2-4 /HPF (0 - 2) H Urine WBC Tntc /HPF (0 - 2) H Urine Squamous Epithelial Cells Few /LPF (NONE/OCC) Urine Bacteria Moderate /HPF (NONE) H Microbiology Date/Time Source Procedure Growth Status 10/29/18 21:00 Urine,Clean Catch Urine Culture - Preliminary Resulted 10/29/18 22:00 Rectum Received Height (Feet): 5 Height (Inches): 0.00 Weight (Pounds): 119 Medications Current Medications Medications (Trade) Dose Ordered Sig/Bia Route PRN Reason Start Time Stop Time Status Last Admin Dose Admin Acetaminophen (Tylenol) 650 mg Q4H PRN ORAL fever 10/29/18 22:30 11/28/18 22:29 Albuterol/ Ipratropium (Albuterol/ Ipratropium) 3 ml Q4H PRN HHN Shortness of Breath 10/29/18 22:30 11/03/18 22:29 Amlodipine Besylate (Norvasc) 10 mg DAILY GT 10/30/18 09:00 11/29/18 08:59 10/30/18 09:18 Cefepime HCl 2 gm/ Dextrose 110 ml @ 220 mls/hr Q24H IV 10/30/18 09:00 11/06/18 08:59 10/30/18 09:18 Docusate Sodium (Colace) 100 mg BID GT 10/30/18 09:00 11/29/18 08:59 10/30/18 09:17 Heparin Sodium (Porcine) (Heparin 5000 units/ml) 5,000 units EVERY 12 HOURS SUBQ 10/30/18 09:00 11/29/18 08:59 10/30/18 09:19 Lisinopril (Zestril) 10 mg DAILY GT 10/30/18 09:00 11/29/18 08:59 10/30/18 09:18 Metoprolol Succinate (Toprol XL) 75 mg DAILY ORAL 10/30/18 09:00 11/29/18 08:59 10/30/18 09:22 Morphine Sulfate (Morphine Sulfate) 2 mg Q4H PRN IVP Moderate Pain (Pain Scale 4-6) 10/29/18 22:30 11/05/18 22:29 Ondansetron HCl (Zofran) 4 mg Q6H PRN IVP Nausea & Vomiting 10/29/18 22:30 11/28/18 22:29 Polyethylene Glycol (Miralax) 17 gm DAILYPRN PRN ORAL Constipation 10/29/18 22:30 11/28/18 22:29 Temazepam (Restoril) 15 mg HSPRN PRN ORAL Insomnia 10/29/18 22:30 11/05/18 22:29 Vancomycin HCl 1 gm/Dextrose 275 ml @ 183.3 mls/ hr Q24H IVPB 10/30/18 00:30 11/04/18 00:29 10/30/18 00:10 Assessment/Plan Assessment/Plan Abx: Ceftriaxone x 10/29 IV Vancomycin 10/30- Cefepime 10/30- Assessment: GT dislodgment -KUB: Gastrostomy tube within the stomach. No leak identified. Pyuria- assymptomatic -u/a wbc tnct, nit neg, leuk +3; ucx p Afebrile No leukocytosis HTN Dementia dysphagia s/p GT FTT SNF resident Plan: -D/c IV Vancomycin and Cefepime #1 as no fever, leukocytosis and no UTI symptoms ; will monitor off abx -f.u cx -Monitor CBC/CMP, temperatures -GT care -GI f/u -wound care per hospital protocol -Aspiration precautions Thank you for this consultation. Will continue to follow along with you. Raissa Taylor M.D. Oct 30, 2018 13:25
--- NOTE | 2018-10-30 14:47 | Consultation ---
History of Present Illness General Chief Complaint: Malfunctioning Gastric Tube Referring physician: RANDAL BABIN Reason for Consultation: inpatient management Present Illness Allergies: Coded Allergies: No Known Allergies (Unverified , 10/29/18) Medication History Scheduled Acetaminophen 160MG/5ML* (Acetaminophen*), 20 ML GT EVERY 6 HOURS, (Reported) Amlodipine Besylate* (Amlodipine Besylate*), 10 MG GT DAILY, (Reported) Docusate Sodium (Docusate Sodium), 100 MG GT BID, (Reported) Insulin Glargine (Lantus), 12 SUBQ BEDTIME, (Reported) Lisinopril* (Lisinopril*), 10 MG GT DAILY, (Reported) Lisinopril/Hydrochlorothiazide 20-25 Mg Tab (Lisinopril-Hctz 20-25 Mg Tab), 2 TAB GT BID, (Reported) Metoclopramide Hcl* (Reglan*), 5 MG GT QID, (Reported) Metoprolol Succinate* (Metoprolol Succinate*), 75 MG GT DAILY, (Reported) Multivitamin With Minerals (Multivitamins With Minerals*), 1 TAB GT DAILY, ( Reported) Potassium Bicarbonate/Cit Ac (Effer-K 20 Meq Tablet Eff), 20 MEQ GT DAILY, ( Reported) Scheduled PRN Diphenhydramine Hcl* (Diphenhydramine Hcl*), 25 MG ORAL Q6H PRN for Itching, ( Reported) Ondansetron* (Zofran*), 4 MG GT Q4HR PRN for Nausea & Vomiting, (Reported) Patient History Healthcare decision maker Resuscitation status Full Code Advanced Directive on File No Physical Exam Last 24 Hour Vital Signs Date Time Temp Pulse Resp B/P (MAP) Pulse Ox O2 Delivery O2 Flow Rate FiO2 10/30/18 09:22 100 130/85 10/30/18 09:18 130/85 10/30/18 09:18 100 130/85 10/30/18 09:00 Room Air 10/30/18 08:00 97.7 100 20 130/85 (100) 97 10/30/18 04:00 99.0 98 18 113/70 (84) 99 10/30/18 00:36 Room Air 10/30/18 00:00 99.7 99 18 121/84 (96) 97 99 10/29/18 23:00 98.9 95 16 122/71 100 Room Air 88 10/29/18 20:15 98.9 88 16 122/71 100 Room Air 10/29/18 16:30 99.1 94 18 96/60 96 Room Air 10/29/18 16:30 98.9 95 20 111/60 100 Room Air Intake and Output 10/29/18 10/30/18 18:59 06:59 Intake Total 0 ml Balance 0 ml Intake Oral 0 ml # Voids 1 2 Laboratory Tests Test 10/29/18 20:20 10/29/18 21:00 10/30/18 05:18 White Blood Count 8.5 K/UL (4.8-10.8) 7.4 K/UL (4.8-10.8) Red Blood Count 3.43 M/UL (4.20-5.40) L 3.16 M/UL (4.20-5.40) L Hemoglobin 9.9 G/DL (12.0-16.0) L 9.1 G/DL (12.0-16.0) L Hematocrit 30.8 % (37.0-47.0) L 28.5 % (37.0-47.0) L Mean Corpuscular Volume 90 FL (80-99) 90 FL (80-99) Mean Corpuscular Hemoglobin 28.9 PG (27.0-31.0) 28.6 PG (27.0-31.0) Mean Corpuscular Hemoglobin Concent 32.2 G/DL (32.0-36.0) 31.7 G/DL (32.0-36.0) L Red Cell Distribution Width 16.5 % (11.6-14.8) H 16.2 % (11.6-14.8) H Platelet Count 606 K/UL (150-450) H 558 K/UL (150-450) H Mean Platelet Volume 5.5 FL (6.5-10.1) L 5.3 FL (6.5-10.1) L Neutrophils (%) (Auto) 59.3 % (45.0-75.0) 54.9 % (45.0-75.0) Lymphocytes (%) (Auto) 24.7 % (20.0-45.0) 26.9 % (20.0-45.0) Monocytes (%) (Auto) 11.3 % (1.0-10.0) H 14.3 % (1.0-10.0) H Eosinophils (%) (Auto) 2.3 % (0.0-3.0) 1.9 % (0.0-3.0) Basophils (%) (Auto) 2.4 % (0.0-2.0) H 2.1 % (0.0-2.0) H Sodium Level 137 MMOL/L (136-145) 137 MMOL/L (136-145) Potassium Level 4.1 MMOL/L (3.5-5.1) 4.0 MMOL/L (3.5-5.1) Chloride Level 99 MMOL/L (98-107) 97 MMOL/L (98-107) L Carbon Dioxide Level 32 MMOL/L (21-32) 29 MMOL/L (21-32) Anion Gap 6 mmol/L (5-15) 11 mmol/L (5-15) Blood Urea Nitrogen 18 mg/dL (7-18) 18 mg/dL (7-18) Creatinine 0.7 MG/DL (0.55-1.30) 0.7 MG/DL (0.55-1.30) Estimat Glomerular Filtration Rate > 60 mL/min (>60) > 60 mL/min (>60) Glucose Level 129 MG/DL (74-106) H 118 MG/DL (74-106) H Calcium Level 10.0 MG/DL (8.5-10.1) 10.0 MG/DL (8.5-10.1) Total Bilirubin 0.3 MG/DL (0.2-1.0) 0.3 MG/DL (0.2-1.0) Aspartate Amino Transf (AST/SGOT) 19 U/L (15-37) 16 U/L (15-37) Alanine Aminotransferase (ALT/SGPT) 19 U/L (12-78) 13 U/L (12-78) Alkaline Phosphatase 112 U/L (46-116) 105 U/L (46-116) Total Protein 8.8 G/DL (6.4-8.2) H 8.6 G/DL (6.4-8.2) H Albumin 2.6 G/DL (3.4-5.0) L 2.5 G/DL (3.4-5.0) L Globulin 6.2 g/dL 6.1 g/dL Albumin/Globulin Ratio 0.4 (1.0-2.7) L 0.4 (1.0-2.7) L Urine Color Pale yellow Urine Appearance Cloudy Urine pH 8 (4.5-8.0) Urine Specific [place] 1.010 (1.005-1.035) Urine Protein 2+ (NEGATIVE) H Urine Glucose (UA) Negative (NEGATIVE) Urine Ketones Negative (NEGATIVE) Urine Blood 3+ (NEGATIVE) H Urine Nitrite Negative (NEGATIVE) Urine Bilirubin Negative (NEGATIVE) Urine Urobilinogen Normal MG/DL (0.0-1.0) Urine Leukocyte Esterase 3+ (NEGATIVE) H Urine RBC 2-4 /HPF (0 - 2) H Urine WBC Tntc /HPF (0 - 2) H Urine Squamous Epithelial Cells Few /LPF (NONE/OCC) Urine Bacteria Moderate /HPF (NONE) H Microbiology Date/Time Source Procedure Growth Status 10/29/18 21:00 Urine,Clean Catch Urine Culture - Preliminary Resulted 10/29/18 22:00 Rectum Received Height (Feet): 5 Height (Inches): 0.00 Weight (Pounds): 119 Medications Current Medications Medications (Trade) Dose Ordered Sig/Bia Route PRN Reason Start Time Stop Time Status Last Admin Dose Admin Acetaminophen (Tylenol) 650 mg Q4H PRN ORAL fever 10/29/18 22:30 11/28/18 22:29 Albuterol/ Ipratropium (Albuterol/ Ipratropium) 3 ml Q4H PRN HHN Shortness of Breath 10/29/18 22:30 11/03/18 22:29 Amlodipine Besylate (Norvasc) 10 mg DAILY GT 10/30/18 09:00 11/29/18 08:59 10/30/18 09:18 Cefepime HCl 2 gm/ Dextrose 110 ml @ 220 mls/hr Q24H IV 10/30/18 09:00 11/06/18 08:59 10/30/18 09:18 Docusate Sodium (Colace) 100 mg BID GT 10/30/18 09:00 11/29/18 08:59 10/30/18 09:17 Heparin Sodium (Porcine) (Heparin 5000 units/ml) 5,000 units EVERY 12 HOURS SUBQ 10/30/18 09:00 11/29/18 08:59 10/30/18 09:19 Lisinopril (Zestril) 10 mg DAILY GT 10/30/18 09:00 11/29/18 08:59 10/30/18 09:18 Metoprolol Succinate (Toprol XL) 75 mg DAILY ORAL 10/30/18 09:00 11/29/18 08:59 10/30/18 09:22 Morphine Sulfate (Morphine Sulfate) 2 mg Q4H PRN IVP Moderate Pain (Pain Scale 4-6) 10/29/18 22:30 11/05/18 22:29 Ondansetron HCl (Zofran) 4 mg Q6H PRN IVP Nausea & Vomiting 10/29/18 22:30 11/28/18 22:29 Polyethylene Glycol (Miralax) 17 gm DAILYPRN PRN ORAL Constipation 10/29/18 22:30 11/28/18 22:29 Temazepam (Restoril) 15 mg HSPRN PRN ORAL Insomnia 10/29/18 22:30 11/05/18 22:29 Vancomycin HCl 1 gm/Dextrose 275 ml @ 183.3 mls/ hr Q24H IVPB 10/30/18 00:30 11/04/18 00:29 10/30/18 00:10 Assessment/Plan Assessment/Plan Hematology Consultation Date patient seen: Oct 30, 2018 Chief Complaint: Malfunctioning Gastric Tube Referring physician: RANDAL BABIN Reason for Consultation: FTT, ANEMIA, ELEVATED PROTEIN AND DECREASED ALB HPI 68 year old female with hx of HTN, dementia, G-TUBE, presented from a nursing facility for G-tube dislodgment. Earlier today around noon the patient pulled out her G-tube. There are no other complaints. Pt looks chronically ill and doesn't answer questions properly. Allergies: No Known Allergies (Unverified , 10/29/18) Meds Acetaminophen 160MG/5ML* (Acetaminophen*), 20 ML GT EVERY 6 HOURS, (Reported) Amlodipine Besylate* (Amlodipine Besylate*), 10 MG GT DAILY, (Reported) Docusate Sodium (Docusate Sodium), 100 MG GT BID, (Reported) Insulin Glargine (Lantus), 12 SUBQ BEDTIME, (Reported) Lisinopril* (Lisinopril*), 10 MG GT DAILY, (Reported) Lisinopril/Hydrochlorothiazide 20-25 Mg Tab (Lisinopril-Hctz 20-25 Mg Tab), 2 TAB GT BID, (Reported) Metoclopramide Hcl* (Reglan*), 5 MG GT QID, (Reported) Metoprolol Succinate* (Metoprolol Succinate*), 75 MG GT DAILY, (Reported) Multivitamin With Minerals (Multivitamins With Minerals*), 1 TAB GT DAILY, ( Reported) Potassium Bicarbonate/Cit Ac (Effer-K 20 Meq Tablet Eff), 20 MEQ GT DAILY, ( Reported) Scheduled PRN Diphenhydramine Hcl* (Diphenhydramine Hcl*), 25 MG ORAL Q6H PRN for Itching, ( Reported) Ondansetron* (Zofran*), 4 MG GT Q4HR PRN for Nausea & Vomiting, (Reported) Resuscitation status Full Code Advanced Directive on File No Past Medical/Surgical History: Diabetes mellitus Hypertension Alzheimer's dementia Review of Systems: negative except mentioned in HPI PE General Appearance: cachetic Lines, tubes and drains: peripheral HEENT: normocephalic, atraumatic Neck: non-tender, normal alignment Respiratory/Chest: chest wall non-tender, lungs clear Breasts: no masses Cardiovascular/Chest: normal rate, no JVD Abdomen: normal bowel sounds, hyperactive bowel sounds Genitourinary/Rectal: normal genital exam Last 24 Hour Vital Signs Date Time Temp Pulse Resp B/P (MAP) Pulse Ox O2 Delivery O2 Flow Rate FiO2 10/30/18 09:22 100 130/85 10/30/18 09:18 130/85 10/30/18 09:18 100 130/85 10/30/18 09:00 Room Air 10/30/18 08:00 97.7 100 20 130/85 (100) 97 10/30/18 04:00 99.0 98 18 113/70 (84) 99 10/30/18 00:36 Room Air 10/30/18 00:00 99.7 99 18 121/84 (96) 97 99 10/29/18 23:00 98.9 95 16 122/71 100 Room Air 88 10/29/18 20:15 98.9 88 16 122/71 100 Room Air 10/29/18 16:30 99.1 94 18 96/60 96 Room Air 10/29/18 16:30 98.9 95 20 111/60 100 Room Air Intake and Output 10/29/18 10/30/18 19:00 07:00 Intake Total 0 ml Balance 0 ml Intake Oral 0 ml # Voids 1 2 Laboratory Tests Test 10/29/18 20:20 10/29/18 21:00 10/30/18 05:18 White Blood Count 8.5 K/UL (4.8-10.8) 7.4 K/UL (4.8-10.8) Red Blood Count 3.43 M/UL (4.20-5.40) L 3.16 M/UL (4.20-5.40) L Hemoglobin 9.9 G/DL (12.0-16.0) L 9.1 G/DL (12.0-16.0) L Hematocrit 30.8 % (37.0-47.0) L 28.5 % (37.0-47.0) L Mean Corpuscular Volume 90 FL (80-99) 90 FL (80-99) Mean Corpuscular Hemoglobin 28.9 PG (27.0-31.0) 28.6 PG (27.0-31.0) Mean Corpuscular Hemoglobin Concent 32.2 G/DL (32.0-36.0) 31.7 G/DL (32.0-36.0) L Red Cell Distribution Width 16.5 % (11.6-14.8) H 16.2 % (11.6-14.8) H Platelet Count 606 K/UL (150-450) H 558 K/UL (150-450) H Mean Platelet Volume 5.5 FL (6.5-10.1) L 5.3 FL (6.5-10.1) L Neutrophils (%) (Auto) 59.3 % (45.0-75.0) 54.9 % (45.0-75.0) Lymphocytes (%) (Auto) 24.7 % (20.0-45.0) 26.9 % (20.0-45.0) Monocytes (%) (Auto) 11.3 % (1.0-10.0) H 14.3 % (1.0-10.0) H Eosinophils (%) (Auto) 2.3 % (0.0-3.0) 1.9 % (0.0-3.0) Basophils (%) (Auto) 2.4 % (0.0-2.0) H 2.1 % (0.0-2.0) H Sodium Level 137 MMOL/L (136-145) 137 MMOL/L (136-145) Potassium Level 4.1 MMOL/L (3.5-5.1) 4.0 MMOL/L (3.5-5.1) Chloride Level 99 MMOL/L (98-107) 97 MMOL/L (98-107) L Carbon Dioxide Level 32 MMOL/L (21-32) 29 MMOL/L (21-32) Anion Gap 6 mmol/L (5-15) 11 mmol/L (5-15) Blood Urea Nitrogen 18 mg/dL (7-18) 18 mg/dL (7-18) Creatinine 0.7 MG/DL (0.55-1.30) 0.7 MG/DL (0.55-1.30) Estimat Glomerular Filtration Rate > 60 mL/min (>60) > 60 mL/min (>60) Glucose Level 129 MG/DL (74-106) H 118 MG/DL (74-106) H Calcium Level 10.0 MG/DL (8.5-10.1) 10.0 MG/DL (8.5-10.1) Total Bilirubin 0.3 MG/DL (0.2-1.0) 0.3 MG/DL (0.2-1.0) Aspartate Amino Transf (AST/SGOT) 19 U/L (15-37) 16 U/L (15-37) Alanine Aminotransferase (ALT/SGPT) 19 U/L (12-78) 13 U/L (12-78) Alkaline Phosphatase 112 U/L (46-116) 105 U/L (46-116) Total Protein 8.8 G/DL (6.4-8.2) H 8.6 G/DL (6.4-8.2) H Albumin 2.6 G/DL (3.4-5.0) L 2.5 G/DL (3.4-5.0) L Globulin 6.2 g/dL 6.1 g/dL Albumin/Globulin Ratio 0.4 (1.0-2.7) L 0.4 (1.0-2.7) L Urine Color Pale yellow Urine Appearance Cloudy Urine pH 8 (4.5-8.0) Urine Specific [place] 1.010 (1.005-1.035) Urine Protein 2+ (NEGATIVE) H Urine Glucose (UA) Negative (NEGATIVE) Urine Ketones Negative (NEGATIVE) Urine Blood 3+ (NEGATIVE) H Urine Nitrite Negative (NEGATIVE) Urine Bilirubin Negative (NEGATIVE) Urine Urobilinogen Normal MG/DL (0.0-1.0) Urine Leukocyte Esterase 3+ (NEGATIVE) H Urine RBC 2-4 /HPF (0 - 2) H Urine WBC Tntc /HPF (0 - 2) H Urine Squamous Epithelial Cells Few /LPF (NONE/OCC) Urine Bacteria Moderate /HPF (NONE) H Microbiology Date/Time Source Procedure Growth Status 10/29/18 21:00 Urine,Clean Catch Urine Culture - Preliminary Resulted 10/29/18 22:00 Rectum Received Height (Feet): 5 Height (Inches): 0.00 Weight (Pounds): 119 Medications Current Medications Medications (Trade) Dose Ordered Sig/Bia Route PRN Reason Start Time Stop Time Status Last Admin Dose Admin Acetaminophen (Tylenol) 650 mg Q4H PRN ORAL fever 10/29/18 22:30 11/28/18 22:29 Albuterol/ Ipratropium (Albuterol/ Ipratropium) 3 ml Q4H PRN HHN Shortness of Breath 10/29/18 22:30 11/03/18 22:29 Amlodipine Besylate (Norvasc) 10 mg DAILY GT 10/30/18 09:00 11/29/18 08:59 10/30/18 09:18 Cefepime HCl 2 gm/ Dextrose 110 ml @ 220 mls/hr Q24H IV 10/30/18 09:00 11/06/18 08:59 10/30/18 09:18 Docusate Sodium (Colace) 100 mg BID GT 10/30/18 09:00 11/29/18 08:59 10/30/18 09:17 Heparin Sodium (Porcine) (Heparin 5000 units/ml) 5,000 units EVERY 12 HOURS SUBQ 10/30/18 09:00 11/29/18 08:59 10/30/18 09:19 Lisinopril (Zestril) 10 mg DAILY GT 10/30/18 09:00 11/29/18 08:59 10/30/18 09:18 Metoprolol Succinate (Toprol XL) 75 mg DAILY ORAL 10/30/18 09:00 11/29/18 08:59 10/30/18 09:22 Morphine Sulfate (Morphine Sulfate) 2 mg Q4H PRN IVP Moderate Pain (Pain Scale 4-6) 10/29/18 22:30 11/05/18 22:29 Ondansetron HCl (Zofran) 4 mg Q6H PRN IVP Nausea & Vomiting 10/29/18 22:30 11/28/18 22:29 Polyethylene Glycol (Miralax) 17 gm DAILYPRN PRN ORAL Constipation 10/29/18 22:30 11/28/18 22:29 Temazepam (Restoril) 15 mg HSPRN PRN ORAL Insomnia 10/29/18 22:30 11/05/18 22:29 Vancomycin HCl 1 gm/Dextrose 275 ml @ 183.3 mls/ hr Q24H IVPB 10/30/18 00:30 11/04/18 00:29 10/30/18 00:10 Assessment/Plan # Failure to thrive - decreased bmi and low protein --> have ordered for cea level --> will also obtain q3d caloric counts --> have ordered for cea --> may consider mirtazapine as appetite stimulant # Anemia of chronic disease (or of iron deficiency) due to underlying chronic medical issues, multifactorial --> Anemia workup has been ordered --> No evidence of hemolysis is noted, peripheral smear has been reviewed. --> Hgb goal >7. Transfuse prn. --> Epogen or iron at this time is not particularly indicated --> Medications have been reviewed --> evaluate with Gi team prn # Hyperprotenemia with decreased albumin -- this is a dissociation that is abnormal --> obtain SPEP (serum protein electrophoresis) and UPEP (urine protein electrophoresis) --> if above results in a m-spike or abnormally enhanced protein, will need to send off immunofixation serum/urine --> in thecase of a m-spike or abnormally enhanced protein, will obtain a bone marrow biopsy # Hypertension - sbp goal <140 --> appreciate cards recs # Diabetes mellitus --> iss as needed and accuchecks qac and qhs # Alzheimer's dementia # PEG (percutaneous endoscopic gastrostomy) adjustment/replacement/removal The timing of this note does not necessarily reflect the time of the patient was seen. Greatly appreciate consultation! Brennan Gonzales MD Oct 30, 2018 14:47
[2018-10-30 16:00] VITALS: BP 106/65
--- NOTE | 2018-10-30 16:16 | NUR ---
RD ASSESSMENT & RECOMMENDATIONS SEE CARE ACTIVITY FOR COMPLETE ASSESSMENT DAILY ESTIMATED NEEDS: Needs based on cardiac/ 40.3kg 25-30 kcals/kg 2121-7085 total kcals 1-1.2 g protein/kg 40-48 g total protein 25-30 mL/kg 9188-0028 total fluid mLs NUTRITION DIAGNOSIS: Swallowing difficulty R/T dysphagia as evidenced by pt is PEG dep. CURRENT DIET:current w/ an active diet order of pureed, NTL PO DIET RECOMMENDATIONS: IF SAFE FOR PO -> REGULAR/ texture per [employer] ENTERAL NUTRITION RECOMMENDATIONS: Glucerna 1.2 @ 42ml/hr x 24 hrs to provide 1008ml, 1209kcal, 65g prot, 869ml free water * As medically appropriate, initiate Glucerna 1.2 @ 22ml/hr x 6 hrs. * Advance 10ml q 4-6 hrs as tolerated to goal rate * HOB over 30 degrees/ water flush per MD. ADDITIONAL RECOMMENDATIONS: * Calibrated bedscale wt * Per SNF: HT=4'7", most recent wt=86lbs/ bedscale wt on 10/30=88lbs * Monitor BGs closely, need for hypoglycemic agents :h/o DM * A1C for eval of glycemic control * Monitor lytes, replete as needed * F/up w/ [employer] evaluation: per SNF, pt not on oral diet [employer] * Skin integrity: Elliott 1pkt BID, rec Wound eval (sacral wound photo)
[2018-10-30 16:49] LABS: INR 1.2 (0.9-1.1)
--- NOTE | 2018-10-30 19:25 | NUR ---
HAND-OFF: Report given to SAMIR Mobley.
--- NOTE | 2018-10-30 19:34 | NUR ---
NURSE NOTES: Received patient on bed awake, no s/s of any distress, IV line intact, GT dry and intact running Jevity 1.2@50, Bed in low position and locked, call light within reach, will continue to monitor.
--- NOTE | 2018-10-30 19:34 | NUR ---
HAND-OFF: Report given to SAMIR Craig.
[2018-10-30 20:00] VITALS: BP 106/57
--- NOTE | 2018-10-30 21:15 | History and Physical Report ---
DATE OF ADMISSION: 10/29/2018 TIME SEEN: 2 p.m. CONSULTANTS: 1. Roberto Echevarria M.D. 2. Terrence Harris M.D. CHIEF COMPLAINT: Weakness, lethargy, pyelonephritis, anemia. BRIEF HISTORY: This is a 68-year-old female from [facility], presented with above-mentioned diagnoses, diagnosed with pyelonephritis in the ER, admitted to medical floor for further treatment. Currently, calm, in bed, no complaint. No chest pain. No shortness of breath. No nausea, vomiting, or diarrhea. PAST MEDICAL HISTORY: Includes hypertension, diabetes, and Alzheimer's. PAST SURGICAL HISTORY: None. MEDICATIONS: Norvasc, Colace, Zestril, Toprol, cefepime, vancomycin, Tylenol, morphine, Zofran, temazepam. ALLERGIES: Denies. SOCIAL HISTORY: No smoking. Occasional alcohol. No intravenous drug abuse. FAMILY HISTORY: Noncontributory. PHYSICAL EXAMINATION: GENERAL: Calm in bed, oriented x2, in no acute distress. VITAL SIGNS: Temperature 97 degrees, pulse 100, respiratory rate 20, blood pressure 130/85. CARDIOVASCULAR: No murmurs. LUNGS: Distant and clear. ABDOMEN: Bowel sounds positive. Nontender. Nondistended. EXTREMITIES: No cyanosis or edema. NEUROLOGIC: The patient moves all extremities, slightly weak. LABORATORY DATA: Hemoglobin 9.1, platelets 558,000 . BMP, shows chloride 97, glucose 118, albumin 2.5. Urinalysis showed 3+ blood 3+ leukocyte esterase. ASSESSMENT: 1. Pyelonephritis. 2. Anemia. 3. Thrombocytosis. 4. Malnutrition. 5. Hypertension. 6. Diabetes. 7. Alzheimer's. PLAN: 1. Resume home medications. 2. Blood pressure and blood sugar control. 3. Antibiotics per Infectious Disease. 4. Dietary followup. 5. PT and OT. 6. Dr. Coronel and Dr. Gonzales to evaluate. Leonidas Glover D.O. DR: Olimpia JOB#: [id number] CC:
[2018-10-31] VITALS: BP 115/78
[2018-10-31 04:00] VITALS: BP 121/67
[2018-10-31] MEDS ORDERED: LORazepam 0.5mg tab ORAL PRN (05:15)
[2018-10-31 07:27] LABS: BASOPHILS % (AUTO) 2.7 % (0.0-2.0); EOSINOPHILS % (AUTO) 2.2 % (0.0-3.0); HEMATOCRIT 29.3 % (37.0-47.0); HEMOGLOBIN 9.3 G/DL (12.0-16.0); LYMPHOCYTES % (AUTO) 42.8 % (20.0-45.0); MEAN CORPUSCULAR VOLUME 90 FL (80-99); MONOCYTES % (AUTO) 13.1 % (1.0-10.0); NEUTROPHILS % (AUTO) 39.3 % (45.0-75.0); PLATELET COUNT 478 K/UL (150-450); RED BLOOD COUNT 3.25 M/UL (4.20-5.40); RED CELL DISTRIBUTION WIDTH 16.5 % (11.6-14.8); WHITE BLOOD COUNT 5.2 K/UL (4.8-10.8)
--- NOTE | 2018-10-31 07:27 | NUR ---
HAND-OFF: Report given to Maribeth DAWSON.
--- NOTE | 2018-10-31 07:45 | NUR ---
NURSE NOTES: Patient received in stable condition, resting in bed. Breathing unlabored on room air, no signs of respiratory distress or pain observed. G-tube intact, IV on right arm patent. Bed locked in lowest position, call light placed within reach. Will continue to monitor.
[2018-10-31 07:53] LABS: ALANINE AMINOTRANSFERASE 18 U/L (12-78); ALBUMIN 2.4 G/DL (3.4-5.0); ALBUMIN/GLOBULIN RATIO 0.4 (1.0-2.7); ALKALINE PHOSPHATASE 97 U/L (46-116); ANION GAP 6 mmol/L (5-15); ASPARTATE AMINO TRANSFERASE 13 U/L (15-37); BILIRUBIN,TOTAL 0.2 MG/DL (0.2-1.0); BLOOD UREA NITROGEN 20 mg/dL (7-18); CALCIUM 9.5 MG/DL (8.5-10.1); CARBON DIOXIDE 31 MMOL/L (21-32); CHLORIDE 101 MMOL/L (98-107); CREATININE 0.8 MG/DL (0.55-1.30); FERRITIN 1553 NG/ML (8-388); POTASSIUM 3.8 MMOL/L (3.5-5.1); SODIUM 138 MMOL/L (136-145)
[2018-10-31 07:55] LABS: INR 1.1 (0.9-1.1)
[2018-10-31 08:00] VITALS: BP 111/61
--- NOTE | 2018-10-31 08:00 | Consultation ---
DATE OF CONSULTATION: 10/31/2018 INITIAL PSYCHIATRIC EVALUATION CONSULTING PHYSICIAN: Sofia Coronel M.D. HISTORY OF PRESENT ILLNESS: This is a 68-year-old female patient with failure to thrive. This patient came to the hospital at [facility]. She came in very bizarre, but she also had lethargy and she had generalized weakness and a decline in cognition below baseline. She was transferred from [facility] over to [facility]. I saw and assessed her at the bedside. She appeared to be very confused. She seemed to have no insight into the reason why she was in the hospital and that appears to be a decline in her cognition. Also some anxiety, depression, and mood lability. MEDICAL HISTORY: She has a history of neuropathy, lower extremity weakness, difficulty with ambulation, generalized weakness. ALLERGIES: No known drug allergies. PSYCHOTROPIC MEDICATIONS ON ADMISSION: No current psychotropic medications on admission. SUBSTANCE ABUSE HISTORY: Denies. PAIN ASSESSMENT: 0/10. DEVELOPMENTAL PROBLEMS: Denies. SOCIAL HISTORY: The patient lives in [facility]. Financially supported by [employer] and Medicare. Minimal family support. PSYCHIATRIC HISTORY: History of major depressive disorder, mild, recurrent with psychotic features, rule out pseudodementia, . The patient is a poor historian. STRENGTHS: She is motivated to get better. Has a place to live. WEAKNESSES AND LIABILITIES: She is impulsive and minimal support system. MENTAL STATUS EXAMINATION: This is a 68-year-old female. Appearance is disheveled. Attitude, irritable and agitated. Affect, guarded and restricted. Intellect poor because she does not know current events, does not know the last four presidents. Mood depressed and anxious. Motor activity, psychomotor agitation. Attention span is poor because she cannot do serial 7's or spell world backwards. Orientation x2. She is alert to person and place, but not to time and situation. Speech is low volume, slurred, nonsensical. Thought process, disorganized, illogical. Thought content, she does have some paranoid delusions and perceptional disturbances. Abstract reasoning is poor because she does not understand proverbs, only has concrete thinking. Insight is poor because she does not recognize she is having a psychiatric disorder. Judgment is poor because she cannot make medical decisions by herself. Short-term memory, 0/3 of 3-word recall, so poor short-term memory. Long-term memory is poor because she cannot recall long-term events in her life such as high school she went to. DIAGNOSIS: Major depressive disorder, mild, recurrent with psychotic features, rule out pseudodementia. PLAN: Treat with Namenda 5 twice a day, Ativan 0.5 mg every 6 hours p.r.n. anxiety and agitation. Twenty minutes of insight-oriented psychotherapy to improve her insight into her illness, medical and cognitive better control and impulse control. Twenty minutes of insight-oriented psychotherapy. The patient seen and assessed at the bedside. I would like to thank Dr. Leonidas Glover for this interesting consultation. Sofia Coronel M.D. DR: ARISTEO JOB#: [id number] CC:
[2018-10-31 08:16] LABS: % IRON SATURATION 22 % (15-50); IRON 50 ug/dL (50-175); TOTAL IRON BINDING CAPACITY 224 ug/dL (250-450)
[2018-10-31] MEDS: Memantine 5 MG TAB ORAL SCH ×2 (08:30→18:05)
[2018-10-31] MEDS: Lisinopril 10mg tab GT SCH (08:30)
[2018-10-31] MEDS: Metoprolol Succinate XL 25mg tab ORAL SCH (08:30)
[2018-10-31] MEDS: Docusate 100mg/10ml Liq GT SCH ×2 (08:30→18:05)
[2018-10-31] MEDS: Heparin 5000 units/ml inj SUBQ SCH ×2 (08:35→20:08)
--- NOTE | 2018-10-31 10:39 | NUR ---
ST NOTE: BEDSIDE SWALLOW EVAL RECEIVED BEDSIDE SWALLOW EVAL ORDER CHART REVIEWED PRIOR THE EVALUATION PT IS A 68-YEAR-OLD FEMALE WHO WAS ADMITTED DUE TO G-TUBE REPLACEMENT. DYSPHAGIA RISK FACTORS: ADULT FAILURE TO THRIVE, H/O DYSPHAGIA, G-TUBE(? DUE TO DYSPHAGIA OR ADULT FTT), ALCOHOLIC FATTY LIVER, PSYCH(MAJOR DEPRESSIVE DISORDER AND PSYCHOTIC FEATURE), ?ALZHEIMER'S DEMENTIA. PT IS ON NAMENDA AND ATIVAN. PLOF: PT RESIDES AT SNF. PER CHART, PT WAS ON TUBE FEEDING, DIDN'T SEEN THERE WAS A DIET ORAL GRATIFICATION IN THE CHART. NO POLST WAS NOTED, BUT PT HAS G-TUBE FEEDING. CURRENT STATUS: PT SEEN AT BEDSIDE IN AM. ALERT, COOPERATIVE, FOLLOWS SIMPLE DIRECTIONS. VERBAL, ABLE TO MAKE NEEDS KNOWN. PER PT, DIDN'T RECALL EAT AT THE FACILITY BUT ATE A BA[place] YESTERDAY. PT DENIED ANY SWALLOWING DIFFICULTY. GIVEN PO TRIAS: THIN(TSP/CUP), NECTAR THICK(TSP) AND PUREE(TSP) INITIAL IMPRESSION: PROBABLE MILD OR WORSENED OROPHARYNGEAL DYSPHAGIA PT EDENTULOUS. MILD INCREASED ORAL TRANSIT TIME AND OROPHARYNGEAL TRANSIT TIME FAIR LARYNGEAL ELEVATION, NO OVERT S/S OF ASPIRATION. HAS RISK FOR (SILENT) ASPIRATION. RECOMMENDATIONS: 1. CONTINUE LONG-TERM NONORAL FEEDING PRIMARILY NUTRITION AND HYDRATION NEEDS. 2. CONSERVATIVELY, VIDEOSWALLOW STUDY PRIOR PO INTAKE. 3. IF PO IS GIVEN FOR QUALITY OF LIFE, CONSIDER MOIST PUREE WITH NECTAR LIQUIDS DIET ORAL GRATIFICATION. 4. REFER PT TO COMPUTATIONAL PHYSICIST AT DISCHARGE FACILITY. D/W PT AND VIKTORIYA DAWSON.
[2018-10-31 12:00] VITALS: BP 105/61
--- NOTE | 2018-10-31 12:15 | General Progress Note ---
Assessment/Plan Problem List: (1) Diabetes mellitus ICD Codes: E11.9 - Type 2 diabetes mellitus without complications SNOMED: 53670470 (2) Hypertension ICD Codes: I10 - Essential (primary) hypertension SNOMED: 96271329 (3) Alzheimer's dementia ICD Codes: G30.9 - Alzheimer's disease, unspecified; F02.80 - Dementia in other diseases classified elsewhere without behavioral disturbance SNOMED: 45758492 (4) PEG (percutaneous endoscopic gastrostomy) adjustment/replacement/removal ICD Codes: Z43.1 - Encounter for attention to gastrostomy SNOMED: 611869868, 410462837 (5) Normocytic anemia ICD Codes: D64.9 - Anemia, unspecified SNOMED: 191079663 Assessment/Plan speech eval appreciated plan esume GTF will change feeding to glucerna GT care and flush Subjective ROS Limited/Unobtainable: No Allergies: Coded Allergies: No Known Allergies (Unverified , 10/29/18) Objective Last 24 Hour Vital Signs Date Time Temp Pulse Resp B/P (MAP) Pulse Ox O2 Delivery O2 Flow Rate FiO2 10/31/18 09:00 Room Air 10/31/18 08:30 97 121/67 10/31/18 08:30 121/67 10/31/18 08:30 97 121/67 10/31/18 08:00 97.5 101 20 111/61 (78) 96 10/31/18 04:00 98.9 97 18 121/67 (85) 96 10/31/18 00:00 99.1 90 20 115/78 (90) 95 10/30/18 21:00 Room Air 10/30/18 20:28 91 18 Room Air 21 10/30/18 20:00 98.5 84 18 106/57 (73) 98 10/30/18 16:00 97.4 93 17 106/65 (79) 98 Intake and Output 10/30/18 10/31/18 19:00 07:00 Intake Total 120 ml 1000 ml Output Total 200 ml 500 ml Balance -80 ml 500 ml Intake Oral 120 ml Free Water 400 ml Tube Feeding 600 ml Output Urine Total 200 ml 500 ml Laboratory Tests 10/30/18 15:40: Sickle Cell Screen Negative, Prothrombin Time 12.1H, Prothromb Time International Ratio 1.2H, Lactate Dehydrogenase 166, Total Protein (PEP) 7.7, Albumin (PEP) 2.6L, Globulin (PEP) 5.1H, Albumin/Globulin Ratio 0.5L, Alpha-1- Globulins 0.4, Bdsgc-2-Egeayyurr 1.1H, Beta Globulins 1.2, Beta Gamma Globulin 2.4H, PEP Abnormal Protein Bands Not observed, Protein Electrophoresis Interpret Comment 10/30/18 22:45: Stool Occult Blood Negative 10/31/18 05:20: Urine Total Protein [Pending], Urine Albumin (%) [Pending], Urine Alpha-1- Globulins (%) [Pending], Urine Wckza-0-Krsvtoidd (%) [Pending], Urine Beta- Globulin (%) [Pending], Urine Gamma Globulin (%) [Pending], Ur Protein Electrophoresis M-Óscar [Pending], Urine Protein Electrophoresis Intrp [Pending] , Urine Immunofixation [Pending] 10/31/18 06:05: Prothrombin Time 11.8H, Prothromb Time International Ratio 1.1, Albumin/ Globulin Ratio 0.4L, White Blood Count 5.2, Red Blood Count 3.25L, Hemoglobin 9.3L, Hematocrit 29.3L, Mean Corpuscular Volume 90, Mean Corpuscular Hemoglobin 28.7, Mean Corpuscular Hemoglobin Concent 31.8L, Red Cell Distribution Width 16.5H, Platelet Count 478H, Mean Platelet Volume 5.9L, Neutrophils (%) (Auto) 39.3L, Lymphocytes (%) (Auto) 42.8, Monocytes (%) (Auto) 13.1H, Eosinophils (%) (Auto) 2.2, Basophils (%) (Auto) 2.7H, Reticulocyte Count [Pending], Activated Partial Thromboplast Time 31, Sodium Level 138, Potassium Level 3.8, Chloride Level 101, Carbon Dioxide Level 31, Anion Gap 6, Blood Urea Nitrogen 20H, Creatinine 0.8, Estimat Glomerular Filtration Rate > 60, Glucose Level 168H, Calcium Level 9.5, Iron Level 50, Total Iron Binding Capacity 224L, Percent Iron Saturation 22, Unsaturated Iron Binding 174, Ferritin 1553H, Total Bilirubin 0.2, Aspartate Amino Transf (AST/SGOT) 13L, Alanine Aminotransferase ( ALT/SGPT) 18, Alkaline Phosphatase 97, Total Protein 8.1, Albumin 2.4L, Globulin 5.7, Carcinoembryonic Antigen [Pending], Vitamin B12 Level 659, Folate 53.4, Thyroid Stimulating Hormone (TSH) 2.522, Free Thyroxine 1.12 Height (Feet): 5 Height (Inches): 0.00 Weight (Pounds): 119 General Appearance: no apparent distress EENT: normal ENT inspection Neck: supple Cardiovascular: normal rate Respiratory/Chest: decreased breath sounds Abdomen: normal bowel sounds, non tender, soft Extremities: non-tender Brent Shepherd MD Oct 31, 2018 12:15
--- NOTE | 2018-10-31 13:30 | General Progress Note ---
Assessment/Plan Problem List: (1) Anemia ICD Codes: D64.9 - Anemia, unspecified SNOMED: 591032737 (2) Pyelonephritis ICD Codes: N12 - Tubulo-interstitial nephritis, not specified as acute or chronic SNOMED: 75710907 (3) Hypertension ICD Codes: I10 - Essential (primary) hypertension SNOMED: 62004505 (4) Diabetes mellitus ICD Codes: E11.9 - Type 2 diabetes mellitus without complications SNOMED: 56545509 (5) Alzheimer's dementia ICD Codes: G30.9 - Alzheimer's disease, unspecified; F02.80 - Dementia in other diseases classified elsewhere without behavioral disturbance SNOMED: 54110911 Status: stable, progressing Assessment/Plan pt diet abx cbc bmp am dc plan if clear Subjective Constitutional: Reports: weakness Allergies: Coded Allergies: No Known Allergies (Unverified , 10/29/18) All Systems: reviewed and negative except above Subjective sleepy calm Objective Last 24 Hour Vital Signs Date Time Temp Pulse Resp B/P (MAP) Pulse Ox O2 Delivery O2 Flow Rate FiO2 10/31/18 12:00 98.2 97 20 105/61 (76) 97 10/31/18 09:00 Room Air 10/31/18 08:30 97 121/67 10/31/18 08:30 121/67 10/31/18 08:30 97 121/67 10/31/18 08:00 97.5 101 20 111/61 (78) 96 10/31/18 04:00 98.9 97 18 121/67 (85) 96 10/31/18 00:00 99.1 90 20 115/78 (90) 95 10/30/18 21:00 Room Air 10/30/18 20:28 91 18 Room Air 21 10/30/18 20:00 98.5 84 18 106/57 (73) 98 10/30/18 16:00 97.4 93 17 106/65 (79) 98 Intake and Output 10/30/18 10/31/18 19:00 07:00 Intake Total 120 ml 1000 ml Output Total 200 ml 500 ml Balance -80 ml 500 ml Intake Oral 120 ml Free Water 400 ml Tube Feeding 600 ml Output Urine Total 200 ml 500 ml Laboratory Tests 10/30/18 15:40: Sickle Cell Screen Negative, Prothrombin Time 12.1H, Prothromb Time International Ratio 1.2H, Lactate Dehydrogenase 166, Total Protein (PEP) 7.7, Albumin (PEP) 2.6L, Globulin (PEP) 5.1H, Albumin/Globulin Ratio 0.5L, Alpha-1- Globulins 0.4, Vasrm-0-Lsihpdvix 1.1H, Beta Globulins 1.2, Beta Gamma Globulin 2.4H, PEP Abnormal Protein Bands Not observed, Protein Electrophoresis Interpret Comment 10/30/18 22:45: Stool Occult Blood Negative 10/31/18 05:20: Urine Total Protein [Pending], Urine Albumin (%) [Pending], Urine Alpha-1- Globulins (%) [Pending], Urine Zxyqw-2-Habxbxtzh (%) [Pending], Urine Beta- Globulin (%) [Pending], Urine Gamma Globulin (%) [Pending], Ur Protein Electrophoresis M-Óscar [Pending], Urine Protein Electrophoresis Intrp [Pending] , Urine Immunofixation [Pending] 10/31/18 06:05: Prothrombin Time 11.8H, Prothromb Time International Ratio 1.1, Albumin/ Globulin Ratio 0.4L, White Blood Count 5.2, Red Blood Count 3.25L, Hemoglobin 9.3L, Hematocrit 29.3L, Mean Corpuscular Volume 90, Mean Corpuscular Hemoglobin 28.7, Mean Corpuscular Hemoglobin Concent 31.8L, Red Cell Distribution Width 16.5H, Platelet Count 478H, Mean Platelet Volume 5.9L, Neutrophils (%) (Auto) 39.3L, Lymphocytes (%) (Auto) 42.8, Monocytes (%) (Auto) 13.1H, Eosinophils (%) (Auto) 2.2, Basophils (%) (Auto) 2.7H, Reticulocyte Count 2.0, Activated Partial Thromboplast Time 31, Sodium Level 138, Potassium Level 3.8, Chloride Level 101, Carbon Dioxide Level 31, Anion Gap 6, Blood Urea Nitrogen 20H, Creatinine 0.8, Estimat Glomerular Filtration Rate > 60, Glucose Level 168H, Calcium Level 9.5, Iron Level 50, Total Iron Binding Capacity 224L, Percent Iron Saturation 22, Unsaturated Iron Binding 174, Ferritin 1553H, Total Bilirubin 0.2, Aspartate Amino Transf (AST/SGOT) 13L, Alanine Aminotransferase ( ALT/SGPT) 18, Alkaline Phosphatase 97, Total Protein 8.1, Albumin 2.4L, Globulin 5.7, Carcinoembryonic Antigen [Pending], Vitamin B12 Level 659, Folate 53.4, Thyroid Stimulating Hormone (TSH) 2.522, Free Thyroxine 1.12 Height (Feet): 5 Height (Inches): 0.00 Weight (Pounds): 119 General Appearance: lethargic EENT: normal ENT inspection Neck: normal alignment Cardiovascular: normal peripheral pulses, normal rate, regular rhythm Respiratory/Chest: chest wall non-tender, lungs clear, normal breath sounds Abdomen: normal bowel sounds, non tender, soft Extremities: normal inspection Edema: no edema noted Arm (L), no edema noted Arm (R), no edema noted Leg (L), no edema noted Leg (R), no edema noted Pedal (L), no edema noted Pedal (R), no edema noted Generalized Neurologic: motor weakness Skin: normal pigmentation, warm/dry Leonidas Glover DO Oct 31, 2018 13:30
--- NOTE | 2018-10-31 14:11 | Pulmonology Progress Note ---
Assessment/Plan Problems: (1) Hypertension (2) Diabetes mellitus (3) Alzheimer's dementia (4) PEG (percutaneous endoscopic gastrostomy) adjustment/replacement/removal Assessment/Plan GI evaluation appreciated, PEG is in aspiration precaution IV fluids symptomatic treatment check electrolytes dvt prophylaxis. Subjective ROS Limited/Unobtainable: No Constitutional: Reports: no symptoms HEENT: Repors: no symptoms Respiratory: Reports: no symptoms Allergies: Coded Allergies: No Known Allergies (Unverified , 10/29/18) Objective Last 24 Hour Vital Signs Date Time Temp Pulse Resp B/P (MAP) Pulse Ox O2 Delivery O2 Flow Rate FiO2 10/31/18 12:00 98.2 97 20 105/61 (76) 97 10/31/18 09:00 Room Air 10/31/18 08:30 97 121/67 10/31/18 08:30 121/67 10/31/18 08:30 97 121/67 10/31/18 08:00 97.5 101 20 111/61 (78) 96 10/31/18 04:00 98.9 97 18 121/67 (85) 96 10/31/18 00:00 99.1 90 20 115/78 (90) 95 10/30/18 21:00 Room Air 10/30/18 20:28 91 18 Room Air 21 10/30/18 20:00 98.5 84 18 106/57 (73) 98 10/30/18 16:00 97.4 93 17 106/65 (79) 98 Intake and Output 10/30/18 10/31/18 19:00 07:00 Intake Total 120 ml 1000 ml Output Total 200 ml 500 ml Balance -80 ml 500 ml Intake Oral 120 ml Free Water 400 ml Tube Feeding 600 ml Output Urine Total 200 ml 500 ml General Appearance: WD/WN, no acute distress Respiratory/Chest: chest wall non-tender, lungs clear Cardiovascular: normal peripheral pulses, regularly irregular Abdomen: normal bowel sounds, no scars Skin: no rash Microbiology Date/Time Source Procedure Growth Status 10/29/18 21:00 Urine,Clean Catch Urine Culture - Preliminary Gram Negative Bacillus 1 Resulted 10/29/18 22:00 Rectum Received Laboratory Tests 10/30/18 15:40: Sickle Cell Screen Negative, Prothrombin Time 12.1H, Prothromb Time International Ratio 1.2H, Lactate Dehydrogenase 166, Total Protein (PEP) 7.7, Albumin (PEP) 2.6L, Globulin (PEP) 5.1H, Albumin/Globulin Ratio 0.5L, Alpha-1- Globulins 0.4, Myjlc-0-Lrmlrtyav 1.1H, Beta Globulins 1.2, Beta Gamma Globulin 2.4H, PEP Abnormal Protein Bands Not observed, Protein Electrophoresis Interpret Comment 10/30/18 22:45: Stool Occult Blood Negative 10/31/18 05:20: Urine Total Protein [Pending], Urine Albumin (%) [Pending], Urine Alpha-1- Globulins (%) [Pending], Urine Xofop-4-Xuqbwnfjy (%) [Pending], Urine Beta- Globulin (%) [Pending], Urine Gamma Globulin (%) [Pending], Ur Protein Electrophoresis M-Óscar [Pending], Urine Protein Electrophoresis Intrp [Pending] , Urine Immunofixation [Pending] 10/31/18 06:05: Prothrombin Time 11.8H, Prothromb Time International Ratio 1.1, Albumin/ Globulin Ratio 0.4L, White Blood Count 5.2, Red Blood Count 3.25L, Hemoglobin 9.3L, Hematocrit 29.3L, Mean Corpuscular Volume 90, Mean Corpuscular Hemoglobin 28.7, Mean Corpuscular Hemoglobin Concent 31.8L, Red Cell Distribution Width 16.5H, Platelet Count 478H, Mean Platelet Volume 5.9L, Neutrophils (%) (Auto) 39.3L, Lymphocytes (%) (Auto) 42.8, Monocytes (%) (Auto) 13.1H, Eosinophils (%) (Auto) 2.2, Basophils (%) (Auto) 2.7H, Reticulocyte Count 2.0, Activated Partial Thromboplast Time 31, Sodium Level 138, Potassium Level 3.8, Chloride Level 101, Carbon Dioxide Level 31, Anion Gap 6, Blood Urea Nitrogen 20H, Creatinine 0.8, Estimat Glomerular Filtration Rate > 60, Glucose Level 168H, Calcium Level 9.5, Iron Level 50, Total Iron Binding Capacity 224L, Percent Iron Saturation 22, Unsaturated Iron Binding 174, Ferritin 1553H, Total Bilirubin 0.2, Aspartate Amino Transf (AST/SGOT) 13L, Alanine Aminotransferase ( ALT/SGPT) 18, Alkaline Phosphatase 97, Total Protein 8.1, Albumin 2.4L, Globulin 5.7, Carcinoembryonic Antigen [Pending], Vitamin B12 Level 659, Folate 53.4, Thyroid Stimulating Hormone (TSH) 2.522, Free Thyroxine 1.12 Current Medications Medications (Trade) Dose Ordered Sig/Bia Route PRN Reason Start Time Stop Time Status Last Admin Dose Admin Acetaminophen (Tylenol) 650 mg Q4H PRN ORAL fever 10/29/18 22:30 11/28/18 22:29 Albuterol/ Ipratropium (Albuterol/ Ipratropium) 3 ml Q4H PRN HHN Shortness of Breath 10/29/18 22:30 11/03/18 22:29 Amlodipine Besylate (Norvasc) 10 mg DAILY GT 10/30/18 09:00 11/29/18 08:59 10/31/18 08:30 Docusate Sodium (Colace) 100 mg BID GT 10/30/18 09:00 11/29/18 08:59 10/31/18 08:30 Heparin Sodium (Porcine) (Heparin 5000 units/ml) 5,000 units EVERY 12 HOURS SUBQ 10/30/18 09:00 11/29/18 08:59 10/31/18 08:35 Lisinopril (Zestril) 10 mg DAILY GT 10/30/18 09:00 11/29/18 08:59 10/31/18 08:30 Lorazepam (Ativan) 0.5 mg Q6H PRN ORAL For Anxiety 10/31/18 05:15 11/07/18 05:14 Memantine (Namenda) 5 mg BID ORAL 10/31/18 09:00 11/30/18 08:59 10/31/18 08:30 Metoprolol Succinate (Toprol XL) 75 mg DAILY ORAL 10/30/18 09:00 11/29/18 08:59 10/31/18 08:30 Morphine Sulfate (Morphine Sulfate) 2 mg Q4H PRN IVP Moderate Pain (Pain Scale 4-6) 10/29/18 22:30 11/05/18 22:29 Ondansetron HCl (Zofran) 4 mg Q6H PRN IVP Nausea & Vomiting 10/29/18 22:30 11/28/18 22:29 Polyethylene Glycol (Miralax) 17 gm DAILYPRN PRN ORAL Constipation 10/29/18 22:30 11/28/18 22:29 Temazepam (Restoril) 15 mg HSPRN PRN ORAL Insomnia 10/29/18 22:30 11/05/18 22:29 Roberto Echevarria MD Oct 31, 2018 14:11
--- NOTE | 2018-10-31 14:47 | NUR ---
*-* DISCHARGE PLANNING *-* PATIENT HAS BEEN REFERRED BACK TO: [facility] P:[phone] F:[phone] Addendum: 10/31/18 at 1519 by DANIEL KENNY CM SPOKE TO [place] THEY INFORMED US FAMILY CALLED AND STATED THEY DID NOT WANT TO RETURN *-*
--- NOTE | 2018-10-31 15:11 | NUR ---
*-* NO INSURANCE INFORMATION IN THE BAR TO SEND CLINICALS AND REVIEWS *-*
--- NOTE | 2018-10-31 15:19 | NUR ---
*-* DISCHARGE PLANNING *-* PATIENT HAS BEEN REFERRED TO: [facility] P:[phone] F:[phone]
--- NOTE | 2018-10-31 15:37 | Infectious Diseases Prog Note ---
Assessment/Plan Assessment/Plan Assessment: GT dislodgment -KUB: Gastrostomy tube within the stomach. No leak identified. Pyuria- assymptomatic -u/a wbc tnct, nit neg, leuk +3; ucx >100k GNR Afebrile No leukocytosis HTN Dementia dysphagia s/p GT FTT SNF resident Plan: -Continue to monitor off abx as no fever, leukocytosis and no UTI symptoms; will monitor off abx -10/30 SP IV Vancomycin and Cefepime #1 -10/29 SP Ceftriaxone x1 -f.u cx -Monitor CBC/CMP, temperatures -GT care -GI f/u -wound care per hospital protocol -Aspiration precautions Thank you for this consultation. Will continue to follow along with you. Subjective Allergies: Coded Allergies: No Known Allergies (Unverified , 10/29/18) Subjective afebrile no leukocytosis off abx Objective Vital Signs Last 24 Hour Vital Signs Date Time Temp Pulse Resp B/P (MAP) Pulse Ox O2 Delivery O2 Flow Rate FiO2 10/31/18 12:00 98.2 97 20 105/61 (76) 97 10/31/18 09:00 Room Air 10/31/18 08:30 97 121/67 10/31/18 08:30 121/67 10/31/18 08:30 97 121/67 10/31/18 08:00 97.5 101 20 111/61 (78) 96 10/31/18 04:00 98.9 97 18 121/67 (85) 96 10/31/18 00:00 99.1 90 20 115/78 (90) 95 10/30/18 21:00 Room Air 10/30/18 20:28 91 18 Room Air 21 10/30/18 20:00 98.5 84 18 106/57 (73) 98 10/30/18 16:00 97.4 93 17 106/65 (79) 98 Height (Feet): 5 Height (Inches): 0.00 Weight (Pounds): 119 Objective General Appearance: cachetic Lines, tubes and drains: peripheral HEENT: normocephalic, atraumatic Neck: non-tender, normal alignment Respiratory/Chest: chest wall non-tender, lungs clear Breasts: no masses Cardiovascular/Chest: normal rate, no JVD Abdomen: normal bowel sounds, hyperactive bowel sounds Genitourinary/Rectal: normal genital exam, normal prostate exam Microbiology Date/Time Source Procedure Growth Status 10/29/18 21:00 Urine,Clean Catch Urine Culture - Preliminary Gram Negative Bacillus 1 Resulted 10/29/18 22:00 Rectum Received Laboratory Tests Test 10/30/18 15:40 10/30/18 22:45 10/31/18 05:20 10/31/18 06:05 Sickle Cell Screen Negative (Negative) Prothrombin Time 12.1 SEC (9.30-11.50) H 11.8 SEC (9.30-11.50) H Prothromb Time International Ratio 1.2 (0.9-1.1) H 1.1 (0.9-1.1) Lactate Dehydrogenase 166 U/L (81-234) Total Protein (PEP) 7.7 g/dL (6.0-8.5) Albumin (PEP) 2.6 g/dL (2.9-4.4) L Globulin (PEP) 5.1 g/dL (2.2-3.9) H Albumin/Globulin Ratio 0.5 (0.7-1.7) L 0.4 (1.0-2.7) L Mheke-5-Ulsyvjsro 0.4 g/dL (0.0-0.4) Jskzi-4-Efbzbnych 1.1 g/dL (0.4-1.0) H Beta Globulins 1.2 g/dL (0.7-1.3) Beta Gamma Globulin 2.4 g/dL (0.4-1.8) H PEP Abnormal Protein Bands Not observed g/dL (Not Protein Electrophoresis Interpret Comment (.) Stool Occult Blood Negative (NEGATIVE) Urine Total Protein Pending Urine Albumin (%) Pending Urine Joyuj-4-Rwwzciugo (%) Pending Urine Bipbd-1-Rowzdhfqi (%) Pending Urine Beta-Globulin (%) Pending Urine Gamma Globulin (%) Pending Ur Protein Electrophoresis M-Óscar Pending Urine Protein Electrophoresis Intrp Pending Urine Immunofixation Pending White Blood Count 5.2 K/UL (4.8-10.8) Red Blood Count 3.25 M/UL (4.20-5.40) L Hemoglobin 9.3 G/DL (12.0-16.0) L Hematocrit 29.3 % (37.0-47.0) L Mean Corpuscular Volume 90 FL (80-99) Mean Corpuscular Hemoglobin 28.7 PG (27.0-31.0) Mean Corpuscular Hemoglobin Concent 31.8 G/DL (32.0-36.0) L Red Cell Distribution Width 16.5 % (11.6-14.8) H Platelet Count 478 K/UL (150-450) H Mean Platelet Volume 5.9 FL (6.5-10.1) L Neutrophils (%) (Auto) 39.3 % (45.0-75.0) L Lymphocytes (%) (Auto) 42.8 % (20.0-45.0) Monocytes (%) (Auto) 13.1 % (1.0-10.0) H Eosinophils (%) (Auto) 2.2 % (0.0-3.0) Basophils (%) (Auto) 2.7 % (0.0-2.0) H Reticulocyte Count 2.0 % (0.0-2.0) Activated Partial Thromboplast Time 31 SEC (23-33) Sodium Level 138 MMOL/L (136-145) Potassium Level 3.8 MMOL/L (3.5-5.1) Chloride Level 101 MMOL/L (98-107) Carbon Dioxide Level 31 MMOL/L (21-32) Anion Gap 6 mmol/L (5-15) Blood Urea Nitrogen 20 mg/dL (7-18) H Creatinine 0.8 MG/DL (0.55-1.30) Estimat Glomerular Filtration Rate > 60 mL/min (>60) Glucose Level 168 MG/DL (74-106) H Calcium Level 9.5 MG/DL (8.5-10.1) Iron Level 50 ug/dL (50-175) Total Iron Binding Capacity 224 ug/dL (250-450) L Percent Iron Saturation 22 % (15-50) Unsaturated Iron Binding 174 ug/dL (112-346) Ferritin 1553 NG/ML (8-388) H Total Bilirubin 0.2 MG/DL (0.2-1.0) Aspartate Amino Transf (AST/SGOT) 13 U/L (15-37) L Alanine Aminotransferase (ALT/SGPT) 18 U/L (12-78) Alkaline Phosphatase 97 U/L (46-116) Total Protein 8.1 G/DL (6.4-8.2) Albumin 2.4 G/DL (3.4-5.0) L Globulin 5.7 g/dL Carcinoembryonic Antigen Pending Vitamin B12 Level 659 PG/ML (193-986) Folate 53.4 NG/ML (8.6-58.9) Thyroid Stimulating Hormone (TSH) 2.522 uiU/mL (0.358-3.740) Free Thyroxine 1.12 NG/DL (0.76-1.46) Current Medications Medications (Trade) Dose Ordered Sig/Bia Route PRN Reason Start Time Stop Time Status Last Admin Dose Admin Acetaminophen (Tylenol) 650 mg Q4H PRN ORAL fever 10/29/18 22:30 11/28/18 22:29 Albuterol/ Ipratropium (Albuterol/ Ipratropium) 3 ml Q4H PRN HHN Shortness of Breath 10/29/18 22:30 11/03/18 22:29 Amlodipine Besylate (Norvasc) 10 mg DAILY GT 10/30/18 09:00 11/29/18 08:59 10/31/18 08:30 Docusate Sodium (Colace) 100 mg BID GT 10/30/18 09:00 11/29/18 08:59 10/31/18 08:30 Heparin Sodium (Porcine) (Heparin 5000 units/ml) 5,000 units EVERY 12 HOURS SUBQ 10/30/18 09:00 11/29/18 08:59 10/31/18 08:35 Lisinopril (Zestril) 10 mg DAILY GT 10/30/18 09:00 11/29/18 08:59 10/31/18 08:30 Lorazepam (Ativan) 0.5 mg Q6H PRN ORAL For Anxiety 10/31/18 05:15 11/07/18 05:14 Memantine (Namenda) 5 mg BID ORAL 10/31/18 09:00 11/30/18 08:59 10/31/18 08:30 Metoprolol Succinate (Toprol XL) 75 mg DAILY ORAL 10/30/18 09:00 11/29/18 08:59 10/31/18 08:30 Morphine Sulfate (Morphine Sulfate) 2 mg Q4H PRN IVP Moderate Pain (Pain Scale 4-6) 3/20/19 22:30 11/05/18 22:29 Ondansetron HCl (Zofran) 4 mg Q6H PRN IVP Nausea & Vomiting 10/29/18 22:30 11/28/18 22:29 Polyethylene Glycol (Miralax) 17 gm DAILYPRN PRN ORAL Constipation 10/29/18 22:30 11/28/18 22:29 Temazepam (Restoril) 15 mg HSPRN PRN ORAL Insomnia 10/29/18 22:30 11/05/18 22:29 Raissa Taylor M.D. Oct 31, 2018 15:37
--- NOTE | 2018-10-31 15:41 | NUR ---
ELECTRONIC SPECIALISTPLANT OPERATOR/SHIFT SUPERVISOR SI: FAILURE TO THRIVE VS: BP 105/65, P 101, T 97.5, RR 18, SpO2 96 Hgb 9.3, Hct 29.3 IS: MEMANTINE 5mg NORVASC 10mg GT LISINOPRIL 10mg TOPROL XL 75ml HEPARIN SUBQ MED/SURG STATUS
[2018-10-31 16:00] VITALS: BP 157/91
--- NOTE | 2018-10-31 16:58 | General Progress Note ---
Assessment/Plan Assessment/Plan Assessment/Plan # Failure to thrive - decreased bmi and low protein --> have ordered for cea level (f/u once discharged) --> will also obtain q3d caloric counts --> may consider mirtazapine as appetite stimulant # Anemia of chronic disease due to underlying chronic medical issues, multifactorial --> Anemia workup has been reviewed and ferritin is >1500 --> No evidence of hemolysis is noted, peripheral smear has been reviewed. --> Hgb goal >7. Transfuse prn. --> Epogen or iron at this time is not particularly indicated --> Medications have been reviewed --> evaluate with Gi team prn # Hyperprotenemia with decreased albumin -- this is a dissociation that is abnormal --> spep is negative, f/u upep as outpatient --> if above results in a m-spike or abnormally enhanced protein, will need to send off immunofixation serum/urine --> in the case of a m-spike or abnormally enhanced protein, will obtain a bone marrow biopsy # Hypertension - sbp goal <140 --> appreciate cards recs # Diabetes mellitus --> iss as needed and accuchecks qac and qhs # Alzheimer's dementia # PEG (percutaneous endoscopic gastrostomy) adjustment/replacement/removal --> appreciate gi recs The timing of this note does not necessarily reflect the time of the patient was seen. Greatly appreciate consultation! Subjective Constitutional: Denies: no symptoms, chills, diaphoresis, fever, malaise, weakness, other Cardiovascular: Denies: no symptoms, chest pain, edema, irregular heart rate, lightheadedness, palpitations, syncope, other Respiratory: Denies: no symptoms, cough, orthopnea, shortness of breath, SOB with excertion, SOB at rest, sputum, stridor, wheezing, other Gastrointestinal/Abdominal: Denies: no symptoms, abdomen distended, abdominal pain, black stools, tarry stools, blood in stool, constipated, diarrhea, difficulty swallowing, nausea, poor appetite, poor fluid intake, rectal bleeding , vomiting, other Genitourinary: Denies: no symptoms, burning, discharge, frequency, flank pain, hematuria, incontinence, pain, urgency, other Neurologic/Psychiatric: Denies: no symptoms, anxiety, depressed, emotional problems, headache, numbness, paresthesia, pre-existing deficit, seizure, tingling, tremors, weakness, other Endocrine: Denies: no symptoms, excessive sweating, flushing, intolerance to cold, intolerance to heat, increased hunger, increased thirst, increased urine, unexplained weight gain, unexplained weight loss, other Allergies: Coded Allergies: No Known Allergies (Unverified , 10/29/18) Subjective 10/31: no events, peg is in, cbc reviewed, she is alert Objective Last 24 Hour Vital Signs Date Time Temp Pulse Resp B/P (MAP) Pulse Ox O2 Delivery O2 Flow Rate FiO2 10/31/18 12:00 98.2 97 20 105/61 (76) 97 10/31/18 09:00 Room Air 10/31/18 08:30 97 121/67 10/31/18 08:30 121/67 10/31/18 08:30 97 121/67 10/31/18 08:00 97.5 101 20 111/61 (78) 96 10/31/18 04:00 98.9 97 18 121/67 (85) 96 10/31/18 00:00 99.1 90 20 115/78 (90) 95 10/30/18 21:00 Room Air 10/30/18 20:28 91 18 Room Air 21 10/30/18 20:00 98.5 84 18 106/57 (73) 98 Intake and Output 10/30/18 10/31/18 18:59 06:59 Intake Total 120 ml 850 ml Output Total 200 ml 500 ml Balance -80 ml 350 ml Intake Oral 120 ml Free Water 300 ml Tube Feeding 550 ml Output Urine Total 200 ml 500 ml Laboratory Tests 10/30/18 22:45: Stool Occult Blood Negative 10/31/18 05:20: Urine Total Protein [Pending], Urine Albumin (%) [Pending], Urine Alpha-1- Globulins (%) [Pending], Urine Qjafl-8-Nxvkxomkb (%) [Pending], Urine Beta- Globulin (%) [Pending], Urine Gamma Globulin (%) [Pending], Ur Protein Electrophoresis M-Óscar [Pending], Urine Protein Electrophoresis Intrp [Pending] , Urine Immunofixation [Pending] 10/31/18 06:05: White Blood Count 5.2, Red Blood Count 3.25L, Hemoglobin 9.3L, Hematocrit 29.3L , Mean Corpuscular Volume 90, Mean Corpuscular Hemoglobin 28.7, Mean Corpuscular Hemoglobin Concent 31.8L, Red Cell Distribution Width 16.5H, Platelet Count 478H, Mean Platelet Volume 5.9L, Neutrophils (%) (Auto) 39.3L, Lymphocytes (%) (Auto) 42.8, Monocytes (%) (Auto) 13.1H, Eosinophils (%) (Auto) 2.2, Basophils (%) (Auto) 2.7H, Reticulocyte Count 2.0, Prothrombin Time 11.8H, Prothromb Time International Ratio 1.1, Activated Partial Thromboplast Time 31, Sodium Level 138, Potassium Level 3.8, Chloride Level 101, Carbon Dioxide Level 31, Anion Gap 6, Blood Urea Nitrogen 20H, Creatinine 0.8, Estimat Glomerular Filtration Rate > 60, Glucose Level 168H, Calcium Level 9.5, Iron Level 50, Total Iron Binding Capacity 224L, Percent Iron Saturation 22, Unsaturated Iron Binding 174, Ferritin 1553H, Total Bilirubin 0.2, Aspartate Amino Transf (AST/ SGOT) 13L, Alanine Aminotransferase (ALT/SGPT) 18, Alkaline Phosphatase 97, Total Protein 8.1, Albumin 2.4L, Globulin 5.7, Albumin/Globulin Ratio 0.4L, Carcinoembryonic Antigen [Pending], Vitamin B12 Level 659, Folate 53.4, Thyroid Stimulating Hormone (TSH) 2.522, Free Thyroxine 1.12 Height (Feet): 5 Height (Inches): 0.00 Weight (Pounds): 119 Objective Physical Exam: Vitals: reviewed if any abnormal, note them General Appearance: NAD HEENT: normocephalic, atraumatic Neck: non-tender, normal alignment Respiratory/Chest: normal breath sounds bilaterally Cardiovascular/Chest: normal peripheral pulses, normal rate Abdomen: normal bowel sounds, soft, nontender Extremities: normal range of motion Brennan Gonzales MD Oct 31, 2018 16:58
--- NOTE | 2018-10-31 19:28 | NUR ---
NURSE NOTES: Pt received in bed at lowest position, call light within reach, Gtube running Glucerna 1.2, Maribeth put the feeding at 60ml/hr, IV saline lock, puriwick in place, will continue to monitor the patient.
--- NOTE | 2018-10-31 19:28 | NUR ---
HAND-OFF: Report given to Christopher DAWSON.
[2018-10-31 20:00] VITALS: BP 113/60
[2018-11-01] VITALS: BP 118/72
[2018-11-01 04:00] VITALS: BP 115/67
[2018-11-01 06:39] LABS: EOSINOPHILS % (AUTO) 3.2 % (0.0-3.0); HEMOGLOBIN 10.2 G/DL (12.0-16.0); LYMPHOCYTES % (AUTO) 35.9 % (20.0-45.0); MEAN CORPUSCULAR VOLUME 91 FL (80-99); MONOCYTES % (AUTO) 8.3 % (1.0-10.0); NEUTROPHILS % (AUTO) 50.6 % (45.0-75.0); PLATELET COUNT 505 K/UL (150-450); RED BLOOD COUNT 3.52 M/UL (4.20-5.40); RED CELL DISTRIBUTION WIDTH 16.4 % (11.6-14.8)
[2018-11-01 06:49] LABS: ANION GAP 8 mmol/L (5-15); BLOOD UREA NITROGEN 21 mg/dL (7-18); CALCIUM 9.6 MG/DL (8.5-10.1); CARBON DIOXIDE 31 MMOL/L (21-32); CHLORIDE 100 MMOL/L (98-107); CREATININE 0.7 MG/DL (0.55-1.30); POTASSIUM 4.2 MMOL/L (3.5-5.1); SODIUM 139 MMOL/L (136-145)
--- NOTE | 2018-11-01 07:16 | NUR ---
HAND-OFF: Report given to SAMIR Ford. Endorsed that I left voicemail concerning VRE rectum results to Steven.
--- NOTE | 2018-11-01 07:17 | NUR ---
NURSE NOTES: received report from SAMIR Omalley. patient in bed sleeping, no respiratory distress noted. GT feeding running. HOB at 30. IV RFA saline lock intact. bed in the lowest position. alarm on. call light within reach. will continue to monitor.
[2018-11-01 08:00] VITALS: BP 104/56
[2018-11-01] MEDS: Docusate 100mg/10ml Liq GT SCH ×2 (08:50→18:19)
[2018-11-01] MEDS: Memantine 5 MG TAB ORAL SCH ×2 (08:50→18:19)
[2018-11-01] MEDS: Heparin 5000 units/ml inj SUBQ SCH ×2 (08:54→20:26)
[2018-11-01] MEDS: Lisinopril 10mg tab GT SCH (08:54)
[2018-11-01] MEDS: Metoprolol Succinate XL 25mg tab ORAL SCH (08:54)
--- NOTE | 2018-11-01 09:30 | Infectious Diseases Prog Note ---
Assessment/Plan Assessment/Plan Assessment: GT dislodgment -KUB: Gastrostomy tube within the stomach. No leak identified. Pyuria- assymptomatic -u/a wbc tnct, nit neg, leuk +3; ucx >100k E. Coli Afebrile No leukocytosis HTN Dementia dysphagia s/p GT FTT SNF resident Plan: -Continue to monitor off abx as no fever, leukocytosis and no UTI symptoms; will monitor off abx -10/30 SP IV Vancomycin and Cefepime #1 -10/29 SP Ceftriaxone x1 -f.u cx -Monitor CBC/CMP, temperatures -GT care -GI f/u -wound care per hospital protocol -Aspiration precautions Subjective Constitutional: Denies: no symptoms, fever, chills, fatigue, anorexia, drenching sweats, other Allergies: Coded Allergies: No Known Allergies (Unverified , 10/29/18) Objective Vital Signs Last 24 Hour Vital Signs Date Time Temp Pulse Resp B/P (MAP) Pulse Ox O2 Delivery O2 Flow Rate FiO2 11/01/18 08:54 90 104/56 11/01/18 08:54 104/56 11/01/18 08:54 90 104/56 11/01/18 08:00 97.8 90 19 104/56 (72) 98 11/01/18 04:00 98.5 100 19 115/67 (83) 98 11/01/18 00:00 98.0 97 19 118/72 (87) 97 10/31/18 21:00 Room Air 10/31/18 20:37 84 18 Room Air 21 10/31/18 20:00 97.8 87 18 113/60 (77) 97 10/31/18 16:00 97.6 68 20 157/91 (113) 95 10/31/18 12:00 98.2 97 20 105/61 (76) 97 Height (Feet): 5 Height (Inches): 0.00 Weight (Pounds): 119 Respiratory/Chest: normal breath sounds Cardiovascular: regular rhythm Abdomen: non distended Microbiology Date/Time Source Procedure Growth Status 10/29/18 22:00 Nasal Nares MRSA Culture - Final NO METHICILLIN RESISTANT STAPH AUREUS... Complete 10/29/18 21:00 Urine,Clean Catch Urine Culture - Preliminary Escherichia Coli Resulted 10/29/18 22:00 Rectum - Final NO CARBAPENEM-RESISTANT ENTEROBACTERI... Complete 10/29/18 22:00 Rectum VRE Culture - Final Enterococcus Faecalis - Vre Complete Laboratory Tests Test 11/01/18 05:55 White Blood Count 8.0 K/UL (4.8-10.8) # Red Blood Count 3.52 M/UL (4.20-5.40) L Hemoglobin 10.2 G/DL (12.0-16.0) L Hematocrit 32.0 % (37.0-47.0) L Mean Corpuscular Volume 91 FL (80-99) Mean Corpuscular Hemoglobin 28.8 PG (27.0-31.0) Mean Corpuscular Hemoglobin Concent 31.7 G/DL (32.0-36.0) L Red Cell Distribution Width 16.4 % (11.6-14.8) H Platelet Count 505 K/UL (150-450) H Mean Platelet Volume 6.2 FL (6.5-10.1) L Neutrophils (%) (Auto) 50.6 % (45.0-75.0) Lymphocytes (%) (Auto) 35.9 % (20.0-45.0) Monocytes (%) (Auto) 8.3 % (1.0-10.0) Eosinophils (%) (Auto) 3.2 % (0.0-3.0) H Basophils (%) (Auto) 2.0 % (0.0-2.0) Sodium Level 139 MMOL/L (136-145) Potassium Level 4.2 MMOL/L (3.5-5.1) Chloride Level 100 MMOL/L (98-107) Carbon Dioxide Level 31 MMOL/L (21-32) Anion Gap 8 mmol/L (5-15) Blood Urea Nitrogen 21 mg/dL (7-18) H Creatinine 0.7 MG/DL (0.55-1.30) Estimat Glomerular Filtration Rate > 60 mL/min (>60) Glucose Level 156 MG/DL (74-106) H Calcium Level 9.6 MG/DL (8.5-10.1) Current Medications Medications (Trade) Dose Ordered Sig/Bia Route PRN Reason Start Time Stop Time Status Last Admin Dose Admin Acetaminophen (Tylenol) 650 mg Q4H PRN ORAL fever 10/29/18 22:30 11/28/18 22:29 Albuterol/ Ipratropium (Albuterol/ Ipratropium) 3 ml Q4H PRN HHN Shortness of Breath 10/29/18 22:30 11/03/18 22:29 Amlodipine Besylate (Norvasc) 10 mg DAILY GT 10/30/18 09:00 11/29/18 08:59 10/31/18 08:30 Docusate Sodium (Colace) 100 mg BID GT 10/30/18 09:00 11/29/18 08:59 11/01/18 08:50 Heparin Sodium (Porcine) (Heparin 5000 units/ml) 5,000 units EVERY 12 HOURS SUBQ 10/30/18 09:00 11/29/18 08:59 11/01/18 08:54 Lisinopril (Zestril) 10 mg DAILY GT 10/30/18 09:00 11/29/18 08:59 10/31/18 08:30 Lorazepam (Ativan) 0.5 mg Q6H PRN ORAL For Anxiety 10/31/18 05:15 11/07/18 05:14 Memantine (Namenda) 5 mg BID ORAL 10/31/18 09:00 11/30/18 08:59 11/01/18 08:50 Metoprolol Succinate (Toprol XL) 75 mg DAILY ORAL 10/30/18 09:00 11/29/18 08:59 10/31/18 08:30 Morphine Sulfate (Morphine Sulfate) 2 mg Q4H PRN IVP Moderate Pain (Pain Scale 4-6) 10/29/18 22:30 11/05/18 22:29 Ondansetron HCl (Zofran) 4 mg Q6H PRN IVP Nausea & Vomiting 10/29/18 22:30 11/28/18 22:29 Polyethylene Glycol (Miralax) 17 gm DAILYPRN PRN ORAL Constipation 10/29/18 22:30 11/28/18 22:29 Temazepam (Restoril) 15 mg HSPRN PRN ORAL Insomnia 10/29/18 22:30 11/05/18 22:29 Terrence Harris MD Nov 01, 2018 09:30
--- NOTE | 2018-11-01 10:36 | NUR ---
NURSE NOTES: seen by Dr. Harris. cleared by MD and patient ready to dc.
--- NOTE | 2018-11-01 10:40 | NUR ---
NURSE NOTES: notified dr. coronel regarding dc plan. patient cleared by Dr. Coronel and ok to dc.
[2018-11-01] MEDS ORDERED: NAMENDA5 MG ORAL (10:51)
[2018-11-01 12:00] VITALS: BP 110/61
--- NOTE | 2018-11-01 13:00 | NUR ---
NURSE NOTES: patient cleared by ID and PSYC. for discharge. notified CASSIE taylor. she will talk to family member for detail discharge plan.
--- NOTE | 2018-11-01 14:01 | NUR ---
CASE MANAGEMENT:DCPNOTE PER [employer] SKILLED P:[phone] PATIENT'S INSURANCE IS CAPPED AT THAT INSURANCE . THEY ARE UNABLE TO ACCEPT ANY MORE PATIENT [place] PATIENT WITHOUT [place] PER FAMILY REQUEST PATIENT REFERRED TO: [facility] [phone] PH / [phone] FAX THUY GARCIA [phone] PH/ FAX [phone] CM WILL FOLLOW UP
--- NOTE | 2018-11-01 14:55 | General Progress Note ---
Assessment/Plan Assessment/Plan Assessment/Plan # Failure to thrive - decreased bmi and low protein --> cea is 3.3, spep is negative --> upep is pending --> will also obtain q3d caloric counts --> may consider mirtazapine as appetite stimulant # Anemia of chronic disease due to underlying chronic medical issues, multifactorial --> Anemia workup has been reviewed and ferritin is >1500 --> No evidence of hemolysis is noted, peripheral smear has been reviewed. --> Hgb goal >7. Transfuse prn. --> Epogen or iron at this time is not particularly indicated --> Medications have been reviewed --> evaluate with Gi team prn # Hyperprotenemia with decreased albumin -- this is a dissociation that is abnormal --> spep is negative, f/u upep as outpatient --> if above results in a m-spike or abnormally enhanced protein, will need to send off immunofixation serum/urine --> in the case of a m-spike or abnormally enhanced protein, will obtain a bone marrow biopsy # Hypertension - sbp goal <140 --> appreciate cards recs # Diabetes mellitus --> iss as needed and accuchecks qac and qhs # Alzheimer's dementia # PEG (percutaneous endoscopic gastrostomy) adjustment/replacement/removal --> appreciate gi recs The timing of this note does not necessarily reflect the time of the patient was seen. Greatly appreciate consultation! Subjective Constitutional: Denies: no symptoms, chills, diaphoresis, fever, malaise, weakness, other Cardiovascular: Denies: no symptoms, chest pain, edema, irregular heart rate, lightheadedness, palpitations, syncope, other Respiratory: Denies: no symptoms, cough, orthopnea, shortness of breath, SOB with excertion, SOB at rest, sputum, stridor, wheezing, other Gastrointestinal/Abdominal: Denies: no symptoms, abdomen distended, abdominal pain, black stools, tarry stools, blood in stool, constipated, diarrhea, difficulty swallowing, nausea, poor appetite, poor fluid intake, rectal bleeding , vomiting, other Genitourinary: Denies: no symptoms, burning, discharge, frequency, flank pain, hematuria, incontinence, pain, urgency, other Neurologic/Psychiatric: Denies: no symptoms, anxiety, depressed, emotional problems, headache, numbness, paresthesia, pre-existing deficit, seizure, tingling, tremors, weakness, other Endocrine: Denies: no symptoms, excessive sweating, flushing, intolerance to cold, intolerance to heat, increased hunger, increased thirst, increased urine, unexplained weight gain, unexplained weight loss, other Allergies: Coded Allergies: No Known Allergies (Unverified , 10/29/18) Subjective 10/31: no events, peg is in, cbc reviewed, she is alert 11/01: cleared for dc by id and psych Objective Last 24 Hour Vital Signs Date Time Temp Pulse Resp B/P (MAP) Pulse Ox O2 Delivery O2 Flow Rate FiO2 11/01/18 12:00 98.0 89 18 110/61 (77) 98 11/01/18 09:55 81 18 Room Air 21 11/01/18 09:00 Room Air 11/01/18 08:54 90 104/56 11/01/18 08:54 104/56 11/01/18 08:54 90 104/56 11/01/18 08:00 97.8 90 19 104/56 (72) 98 11/01/18 04:00 98.5 100 19 115/67 (83) 98 11/01/18 00:00 98.0 97 19 118/72 (87) 97 10/31/18 21:00 Room Air 10/31/18 20:37 84 18 Room Air 21 10/31/18 20:00 97.8 87 18 113/60 (77) 97 10/31/18 16:00 97.6 68 20 157/91 (113) 95 Intake and Output 10/31/18 11/01/18 19:00 07:00 Intake Total 210 ml 960 ml Output Total 400 ml 350 ml Balance -190 ml 610 ml Intake Oral 150 ml Free Water 300 ml Tube Feeding 60 ml 660 ml Output Urine Total 400 ml 350 ml Laboratory Tests 11/01/18 05:55: White Blood Count 8.0#, Red Blood Count 3.52L, Hemoglobin 10.2L, Hematocrit 32.0L, Mean Corpuscular Volume 91, Mean Corpuscular Hemoglobin 28.8, Mean Corpuscular Hemoglobin Concent 31.7L, Red Cell Distribution Width 16.4H, Platelet Count 505H, Mean Platelet Volume 6.2L, Neutrophils (%) (Auto) 50.6, Lymphocytes (%) (Auto) 35.9, Monocytes (%) (Auto) 8.3, Eosinophils (%) (Auto) 3.2H, Basophils (%) (Auto) 2.0, Sodium Level 139, Potassium Level 4.2, Chloride Level 100, Carbon Dioxide Level 31, Anion Gap 8, Blood Urea Nitrogen 21H, Creatinine 0.7, Estimat Glomerular Filtration Rate > 60, Glucose Level 156H, Calcium Level 9.6 Height (Feet): 5 Height (Inches): 0.00 Weight (Pounds): 119 Objective Physical Exam: Vitals: reviewed if any abnormal, note them General Appearance: NAD HEENT: normocephalic, atraumatic Neck: non-tender, normal alignment Respiratory/Chest: normal breath sounds bilaterally Cardiovascular/Chest: normal peripheral pulses, normal rate Abdomen: normal bowel sounds, soft, nontender Extremities: normal range of motion Brennan Gonzales MD Nov 01, 2018 14:55
[2018-11-01 16:00] VITALS: BP 115/59
--- NOTE | 2018-11-01 18:16 | General Progress Note ---
Assessment/Plan Problem List: (1) Anemia ICD Codes: D64.9 - Anemia, unspecified SNOMED: 704743312 (2) Pyelonephritis ICD Codes: N12 - Tubulo-interstitial nephritis, not specified as acute or chronic SNOMED: 53454195 (3) Normocytic anemia ICD Codes: D64.9 - Anemia, unspecified SNOMED: 260738218 (4) Hypertension ICD Codes: I10 - Essential (primary) hypertension SNOMED: 65261859 (5) Diabetes mellitus ICD Codes: E11.9 - Type 2 diabetes mellitus without complications SNOMED: 89139196 (6) Alzheimer's dementia ICD Codes: G30.9 - Alzheimer's disease, unspecified; F02.80 - Dementia in other diseases classified elsewhere without behavioral disturbance SNOMED: 82317896 Status: progressing Assessment/Plan anemia poor historian afebrile vitals stable reviewed chart and labs Subjective ROS Limited/Unobtainable: Yes Allergies: Coded Allergies: No Known Allergies (Unverified , 10/29/18) Objective Last 24 Hour Vital Signs Date Time Temp Pulse Resp B/P (MAP) Pulse Ox O2 Delivery O2 Flow Rate FiO2 11/01/18 16:00 97.9 90 19 115/59 (77) 98 11/01/18 12:00 98.0 89 18 110/61 (77) 98 11/01/18 09:55 81 18 Room Air 21 11/01/18 09:00 Room Air 11/01/18 08:54 90 104/56 11/01/18 08:54 104/56 11/01/18 08:54 90 104/56 11/01/18 08:00 97.8 90 19 104/56 (72) 98 11/01/18 04:00 98.5 100 19 115/67 (83) 98 11/01/18 00:00 98.0 97 19 118/72 (87) 97 10/31/18 21:00 Room Air 10/31/18 20:37 84 18 Room Air 21 10/31/18 20:00 97.8 87 18 113/60 (77) 97 Intake and Output 10/31/18 11/01/18 19:00 07:00 Intake Total 210 ml 960 ml Output Total 400 ml 350 ml Balance -190 ml 610 ml Intake Oral 150 ml Free Water 300 ml Tube Feeding 60 ml 660 ml Output Urine Total 400 ml 350 ml Laboratory Tests 11/01/18 05:55: White Blood Count 8.0#, Red Blood Count 3.52L, Hemoglobin 10.2L, Hematocrit 32.0L, Mean Corpuscular Volume 91, Mean Corpuscular Hemoglobin 28.8, Mean Corpuscular Hemoglobin Concent 31.7L, Red Cell Distribution Width 16.4H, Platelet Count 505H, Mean Platelet Volume 6.2L, Neutrophils (%) (Auto) 50.6, Lymphocytes (%) (Auto) 35.9, Monocytes (%) (Auto) 8.3, Eosinophils (%) (Auto) 3.2H, Basophils (%) (Auto) 2.0, Sodium Level 139, Potassium Level 4.2, Chloride Level 100, Carbon Dioxide Level 31, Anion Gap 8, Blood Urea Nitrogen 21H, Creatinine 0.7, Estimat Glomerular Filtration Rate > 60, Glucose Level 156H, Calcium Level 9.6 Height (Feet): 5 Height (Inches): 0.00 Weight (Pounds): 119 Cardiovascular: normal peripheral pulses Respiratory/Chest: lungs clear Abdomen: soft Nora Alexander MD Nov 01, 2018 18:16
--- NOTE | 2018-11-01 18:57 | NUR ---
HAND-OFF: Report given to SAMIR Omalley.
--- NOTE | 2018-11-01 19:23 | Pulmonology Progress Note ---
Assessment/Plan Problems: (1) Hypertension (2) Diabetes mellitus (3) Alzheimer's dementia (4) PEG (percutaneous endoscopic gastrostomy) adjustment/replacement/removal Assessment/Plan GI evaluation appreciated, PEG is in aspiration precaution IV fluids symptomatic treatment check electrolytes dvt prophylaxis. Subjective ROS Limited/Unobtainable: No Constitutional: Reports: no symptoms HEENT: Repors: no symptoms Allergies: Coded Allergies: No Known Allergies (Unverified , 10/29/18) Objective Last 24 Hour Vital Signs Date Time Temp Pulse Resp B/P (MAP) Pulse Ox O2 Delivery O2 Flow Rate FiO2 11/01/18 16:00 97.9 90 19 115/59 (77) 98 11/01/18 12:00 98.0 89 18 110/61 (77) 98 11/01/18 09:55 81 18 Room Air 21 11/01/18 09:00 Room Air 11/01/18 08:54 90 104/56 11/01/18 08:54 104/56 11/01/18 08:54 90 104/56 11/01/18 08:00 97.8 90 19 104/56 (72) 98 11/01/18 04:00 98.5 100 19 115/67 (83) 98 11/01/18 00:00 98.0 97 19 118/72 (87) 97 10/31/18 21:00 Room Air 10/31/18 20:37 84 18 Room Air 21 10/31/18 20:00 97.8 87 18 113/60 (77) 97 Intake and Output 10/31/18 11/01/18 18:59 06:59 Intake Total 300 ml 960 ml Output Total 400 ml 350 ml Balance -100 ml 610 ml Intake Oral 150 ml Free Water 100 ml 300 ml Tube Feeding 50 ml 660 ml Output Urine Total 400 ml 350 ml Objective General Appearance: combative, cachetic Lines, tubes and drains: peripheral HEENT: normocephalic, atraumatic Neck: non-tender, normal alignment Respiratory/Chest: chest wall non-tender, lungs clear Cardiovascular/Chest: normal rate Abdomen: normal bowel sounds, soft Genitourinary/Rectal: normal genital exam Extremities: normal range of motion Microbiology Date/Time Source Procedure Growth Status 10/30/18 05:33 Blood Blood Culture - Preliminary NO GROWTH AFTER 48 HOURS Resulted 10/30/18 05:18 Blood Blood Culture - Preliminary NO GROWTH AFTER 48 HOURS Resulted 10/29/18 22:00 Nasal Nares MRSA Culture - Final NO METHICILLIN RESISTANT STAPH AUREUS... Complete 10/29/18 21:00 Urine,Clean Catch Urine Culture - Preliminary Escherichia Coli Resulted 10/29/18 22:00 Rectum - Final NO CARBAPENEM-RESISTANT ENTEROBACTERI... Complete 10/29/18 22:00 Rectum VRE Culture - Final Enterococcus Faecalis - Vre Complete Laboratory Tests 11/01/18 05:55: White Blood Count 8.0#, Red Blood Count 3.52L, Hemoglobin 10.2L, Hematocrit 32.0L, Mean Corpuscular Volume 91, Mean Corpuscular Hemoglobin 28.8, Mean Corpuscular Hemoglobin Concent 31.7L, Red Cell Distribution Width 16.4H, Platelet Count 505H, Mean Platelet Volume 6.2L, Neutrophils (%) (Auto) 50.6, Lymphocytes (%) (Auto) 35.9, Monocytes (%) (Auto) 8.3, Eosinophils (%) (Auto) 3.2H, Basophils (%) (Auto) 2.0, Sodium Level 139, Potassium Level 4.2, Chloride Level 100, Carbon Dioxide Level 31, Anion Gap 8, Blood Urea Nitrogen 21H, Creatinine 0.7, Estimat Glomerular Filtration Rate > 60, Glucose Level 156H, Calcium Level 9.6 Current Medications Medications (Trade) Dose Ordered Sig/Bia Route PRN Reason Start Time Stop Time Status Last Admin Dose Admin Acetaminophen (Tylenol) 650 mg Q4H PRN ORAL fever 10/29/18 22:30 11/28/18 22:29 Albuterol/ Ipratropium (Albuterol/ Ipratropium) 3 ml Q4H PRN HHN Shortness of Breath 10/29/18 22:30 11/03/18 22:29 Amlodipine Besylate (Norvasc) 10 mg DAILY GT 10/30/18 09:00 11/29/18 08:59 10/31/18 08:30 Docusate Sodium (Colace) 100 mg BID GT 10/30/18 09:00 11/29/18 08:59 11/01/18 18:19 Heparin Sodium (Porcine) (Heparin 5000 units/ml) 5,000 units EVERY 12 HOURS SUBQ 10/30/18 09:00 11/29/18 08:59 11/01/18 08:54 Lisinopril (Zestril) 10 mg DAILY GT 10/30/18 09:00 11/29/18 08:59 10/31/18 08:30 Lorazepam (Ativan) 0.5 mg Q6H PRN ORAL For Anxiety 10/31/18 05:15 11/07/18 05:14 Memantine (Namenda) 5 mg BID ORAL 10/31/18 09:00 11/30/18 08:59 11/01/18 18:19 Metoprolol Succinate (Toprol XL) 75 mg DAILY ORAL 10/30/18 09:00 11/29/18 08:59 10/31/18 08:30 Morphine Sulfate (Morphine Sulfate) 2 mg Q4H PRN IVP Moderate Pain (Pain Scale 4-6) 10/29/18 22:30 11/05/18 22:29 Ondansetron HCl (Zofran) 4 mg Q6H PRN IVP Nausea & Vomiting 10/29/18 22:30 11/28/18 22:29 Polyethylene Glycol (Miralax) 17 gm DAILYPRN PRN ORAL Constipation 10/29/18 22:30 11/28/18 22:29 Temazepam (Restoril) 15 mg HSPRN PRN ORAL Insomnia 10/29/18 22:30 11/05/18 22:29 Roberto Echevarria MD Nov 01, 2018 19:23
--- NOTE | 2018-11-01 19:36 | NUR ---
NURSE NOTES: Pt received in bed, talking, but confused, call light within reach, no signs or s/o pain or distress, GTube feeding running, will continue to monitor.
[2018-11-01 20:00] VITALS: BP 102/72
--- NOTE | 2018-11-01 20:00 | Progress Note ---
DATE: 11/01/2018 SUBJECTIVE: This is a 68-year-old female patient. She is in the hospital secondary to failure to thrive. She has a lot of confusion, disorganized thought process, and decline in cognition below her baseline. She has altered mental status. Her attending has requested daily psychiatric consultation. MENTAL STATUS EXAMINATION: A 68-year-old female. Appearance is disheveled. Attitude, irritable and agitated. Affect, guarded and restricted. Intellect poor. Mood, depressed and anxious. Motor activity, psychomotor agitation. Attention span is poor. Orientation x2. Speech is pressured. Thought process, disorganized and illogical. Insight and judgment is poor. DIAGNOSIS: Major depressive disorder, mild, recurrent with psychotic features, rule out dementia with psychosis. PLAN: Treat her with mg twice a day, Ativan 0.5 mg every 6 hours p.r.n. anxiety and agitation. Provided her with 20 minutes of cognitive behavioral therapy to help her identify automatic negative thoughts and help her convert negative thoughts to more positive thoughts to reduce depression, anxiety, and suicidality. Seen and assessed at bedside. Chart reviewed. Discussed with staff. Seen and assessed in her room. Sofia Coronel M.D. : Ryan JOB#: [id number] CC:
[2018-11-02] VITALS: BP 125/76
[2018-11-02 04:00] VITALS: BP 141/82
--- NOTE | 2018-11-02 05:30 | Consultation ---
DATE OF CONSULTATION: 10/31/2018 PSYCHOTHERAPY CONSULTATION PROGRESS NOTE CONSULTING PHYSICIAN: Abisai Kumari PsyD. TREATING ATTENDING PHYSICIAN: Leonidas Glover D.O. HISTORY OF PRESENT ILLNESS: The patient is a 68-year-old female patient. She is from [facility]. The patient was brought into the hospital for primary according to the records . She has been tired, fatigued, restless, confused, and disorganized. For these reasons, referred for psychotherapeutic services. The clinician assessed the patient. The patient states that she has been feeling very weak and could not recall where she was living prior to her hospitalization. She states that she does not know why she is still fatigued. She had a decrease in appetite and energy, however, she denies suicidal or homicidal thoughts of ideation. Denies auditory or visual hallucinations. She has been cooperative. However, at this time, she has no logical or viable plans for self-care and safety, requiring hospitalization for stabilization of her symptoms. PAST MEDICAL HISTORY: Includes a history of neuropathy, generalized weakness, hypertension, and diabetes. ALLERGIES: The patient has no known drug allergies. SUBSTANCE ABUSE HISTORY: The patient has a history of alcohol use. Denies illicit substance use or smoking cigarettes. PSYCHIATRIC HISTORY: The patient reports history of depression and possible Alzheimer's. FAMILY SOCIAL HISTORY: The patient is a 68-year-old single female patient from [facility]. Financially sustained through [employer]. MENTAL STATUS EXAMINATION: She is alert and oriented to person and place. Her mood is dysphoric. Affect calm. Thought process, disorganized. Thought content, confused. She has poor attention and concentration. Poor insight, judgment, and impulse control. I assessed this patient. Provided the patient with reality orientation with improving cognitive function. The patient is alert, confused and disorganized. Oriented to person, place, time, and situation and provided with supportive psychotherapy. We will provide patient with addressing the patient's current feelings of fatigue, helplessness, hopelessness, processing her thoughts and feelings , also provide her with cognitive behavioral therapy which utilizes negative thoughts and convert to positive . DIAGNOSES: Major depression, rule out major depressive disorder, recurrent and moderate without psychotic features. disorder, Alzheimer's type without behavioral disturbances. PLAN: Continue with medication compliance positive coping skills possible. Psychotherapy provided for the patient 45 minutes. Abisai Kumari PsyD. DR: NORI JOB#: [id number] CC:
--- NOTE | 2018-11-02 06:36 | NUR ---
NURSE NOTES: Called Dr. Harris and left message with braze operator concerning ESBL Urine results. will endorse to next shift nurse.
--- NOTE | 2018-11-02 07:13 | NUR ---
NURSE NOTES: received report from SAMIR Omalley. patient in bed. sleeping. no respiratory distress noted. GTF running. intact. HOB at 30. bed in the lowest position. call light within reach. will continue to monitor,
--- NOTE | 2018-11-02 07:15 | NUR ---
HAND-OFF: Report given to SAMIR Esparza. Endorsed I left message with plunger machine operator for DR. Harris.
[2018-11-02 08:00] VITALS: BP 135/78
--- NOTE | 2018-11-02 08:27 | NUR ---
NURSE NOTES: SAMIR Henning received call from DR. Harris regarding patient ESBL urine. will see the patient and give order to the nurse.
[2018-11-02] MEDS: Docusate 100mg/10ml Liq GT SCH ×2 (08:37→17:21)
[2018-11-02] MEDS: Lisinopril 10mg tab GT SCH (08:37)
[2018-11-02] MEDS: Memantine 5 MG TAB ORAL SCH ×2 (08:37→17:21)
[2018-11-02] MEDS: Metoprolol Succinate XL 25mg tab ORAL SCH (08:37)
[2018-11-02] MEDS: Heparin 5000 units/ml inj SUBQ SCH ×2 (08:40→20:08)
[2018-11-02 12:00] VITALS: BP 103/63
--- NOTE | 2018-11-02 13:02 | NUR ---
CASE MANAGEMENT: REVIEW SI: MALFUNCTIONING G-TUBE . PYELONEPHRITIS T 97.9 HR 102 RR 16 BP 141/82 SAT 97% ROOM AIR IS: NORVASC GT QD LISINOPRIL GT QD TOPROL XL GT QD HEPARIN SQ Q12HR MED/SURG STATUS DCP: PATIENT IS FROM [facility] . FAMILY REQUEST PLACEMENT IS [facility] . SEEKING PLACEMENT
--- NOTE | 2018-11-02 14:36 | Pulmonology Progress Note ---
Assessment/Plan Problems: (1) Hypertension (2) Diabetes mellitus (3) Alzheimer's dementia (4) PEG (percutaneous endoscopic gastrostomy) adjustment/replacement/removal Assessment/Plan all reviewed tolerating feeding , PEG aspiration precaution IV fluids symptomatic treatment check electrolytes dvt prophylaxis. Subjective ROS Limited/Unobtainable: No Constitutional: Reports: no symptoms HEENT: Repors: no symptoms Allergies: Coded Allergies: No Known Allergies (Unverified , 10/29/18) Objective Last 24 Hour Vital Signs Date Time Temp Pulse Resp B/P (MAP) Pulse Ox O2 Delivery O2 Flow Rate FiO2 11/02/18 12:00 97.9 102 16 103/63 (76) 96 11/02/18 09:00 Room Air 11/02/18 08:37 98 135/78 11/02/18 08:37 135/78 11/02/18 08:37 98 135/78 11/02/18 08:00 98.2 98 16 135/78 (97) 98 11/02/18 04:00 97.8 100 18 141/82 (101) 98 11/02/18 00:00 98.4 103 18 125/76 (92) 97 11/01/18 22:01 103 18 Room Air 21 11/01/18 21:00 Room Air 11/01/18 20:00 98.0 103 19 102/72 (82) 97 11/01/18 16:00 97.9 90 19 115/59 (77) 98 Intake and Output 11/01/18 11/02/18 19:00 07:00 Intake Total 720 ml 1020 ml Balance 720 ml 1020 ml Free Water 300 ml 300 ml Tube Feeding 420 ml 720 ml # Voids 3 4 Objective General Appearance: combative, cachetic Lines, tubes and drains: peripheral HEENT: normocephalic, atraumatic Neck: non-tender, normal alignment Respiratory/Chest: chest wall non-tender, lungs clear Cardiovascular/Chest: normal rate Abdomen: normal bowel sounds, soft Genitourinary/Rectal: normal genital exam Extremities: normal range of motion Current Medications Medications (Trade) Dose Ordered Sig/Bia Route PRN Reason Start Time Stop Time Status Last Admin Dose Admin Acetaminophen (Tylenol) 650 mg Q4H PRN ORAL fever 10/29/18 22:30 11/28/18 22:29 Albuterol/ Ipratropium (Albuterol/ Ipratropium) 3 ml Q4H PRN HHN Shortness of Breath 10/29/18 22:30 11/03/18 22:29 Amlodipine Besylate (Norvasc) 10 mg DAILY GT 10/30/18 09:00 11/29/18 08:59 11/02/18 08:37 Docusate Sodium (Colace) 100 mg BID GT 10/30/18 09:00 11/29/18 08:59 11/02/18 08:37 Heparin Sodium (Porcine) (Heparin 5000 units/ml) 5,000 units EVERY 12 HOURS SUBQ 10/30/18 09:00 11/29/18 08:59 11/02/18 08:40 Lisinopril (Zestril) 10 mg DAILY GT 10/30/18 09:00 11/29/18 08:59 11/02/18 08:37 Lorazepam (Ativan) 0.5 mg Q6H PRN ORAL For Anxiety 10/31/18 05:15 11/07/18 05:14 Memantine (Namenda) 5 mg BID ORAL 10/31/18 09:00 11/30/18 08:59 11/02/18 08:37 Metoprolol Succinate (Toprol XL) 75 mg DAILY ORAL 10/30/18 09:00 11/29/18 08:59 11/02/18 08:37 Morphine Sulfate (Morphine Sulfate) 2 mg Q4H PRN IVP Moderate Pain (Pain Scale 4-6) 10/29/18 22:30 11/05/18 22:29 Ondansetron HCl (Zofran) 4 mg Q6H PRN IVP Nausea & Vomiting 10/29/18 22:30 11/28/18 22:29 Polyethylene Glycol (Miralax) 17 gm DAILYPRN PRN ORAL Constipation 10/29/18 22:30 11/28/18 22:29 Temazepam (Restoril) 15 mg HSPRN PRN ORAL Insomnia 10/29/18 22:30 11/05/18 22:29 Roberto Echevarria MD Nov 02, 2018 14:36
--- NOTE | 2018-11-02 15:29 | General Progress Note ---
Assessment/Plan Problem List: (1) Anemia ICD Codes: D64.9 - Anemia, unspecified SNOMED: 753694007 (2) Pyelonephritis ICD Codes: N12 - Tubulo-interstitial nephritis, not specified as acute or chronic SNOMED: 69859447 (3) Normocytic anemia ICD Codes: D64.9 - Anemia, unspecified SNOMED: 996550347 (4) Hypertension ICD Codes: I10 - Essential (primary) hypertension SNOMED: 09359655 (5) Diabetes mellitus ICD Codes: E11.9 - Type 2 diabetes mellitus without complications SNOMED: 98531032 (6) Alzheimer's dementia ICD Codes: G30.9 - Alzheimer's disease, unspecified; F02.80 - Dementia in other diseases classified elsewhere without behavioral disturbance SNOMED: 55136892 Status: progressing Assessment/Plan anemia poor historian h/h stable sugar is improving reviewed chart and labs Subjective ROS Limited/Unobtainable: Yes Allergies: Coded Allergies: No Known Allergies (Unverified , 10/29/18) Objective Last 24 Hour Vital Signs Date Time Temp Pulse Resp B/P (MAP) Pulse Ox O2 Delivery O2 Flow Rate FiO2 11/02/18 12:00 97.9 102 16 103/63 (76) 96 11/02/18 09:00 Room Air 11/02/18 08:37 98 135/78 11/02/18 08:37 135/78 11/02/18 08:37 98 135/78 11/02/18 08:00 98.2 98 16 135/78 (97) 98 11/02/18 04:00 97.8 100 18 141/82 (101) 98 11/02/18 00:00 98.4 103 18 125/76 (92) 97 11/01/18 22:01 103 18 Room Air 21 11/01/18 21:00 Room Air 11/01/18 20:00 98.0 103 19 102/72 (82) 97 11/01/18 16:00 97.9 90 19 115/59 (77) 98 Intake and Output 11/01/18 11/02/18 19:00 07:00 Intake Total 720 ml 1020 ml Balance 720 ml 1020 ml Free Water 300 ml 300 ml Tube Feeding 420 ml 720 ml # Voids 3 4 Height (Feet): 5 Height (Inches): 0.00 Weight (Pounds): 119 Neck: supple Cardiovascular: normal rate Respiratory/Chest: lungs clear Abdomen: soft Nora Alexander MD Nov 02, 2018 15:29
[2018-11-02 16:00] VITALS: BP 107/65
--- NOTE | 2018-11-02 18:00 | Progress Note ---
DATE: 11/02/2018 SUBJECTIVE: This is a 68-year-old female, failure to thrive, confused, disorganized, mood labile, no logical plan for own self-care. She has altered mental status. That is why, her attending has requested daily psychiatric consultation. MENTAL STATUS EXAMINATION: This is a 68-year-old female. Appearance is disheveled. Attitude, irritable and agitated. Affect, guarded and restricted. Intellect poor. Mood, depressed and anxious. Motor activity, psychomotor agitation. Attention span is poor. Orientation x2. Speech is low volume, slow. Thought process, disorganized and illogical. Insight and judgment is poor. DIAGNOSIS: Major depressive disorder, severe, recurrent with psychotic features, rule out dementia with psychosis. PLAN: Continue further psychotropic medications. Provide her with 20 minutes of cognitive behavioral therapy to help her identify automatic negative thoughts, help her covert those negative thoughts to more positive thoughts to reduce depression, anxiety, and mood lability and help her to have a more adaptive behavioral pattern. Chart reviewed. Discussed with staff. Sofia Coronel M.D. DR: ARISTEO JOB#: [id number] CC:
--- NOTE | 2018-11-02 19:00 | NUR ---
HAND-OFF: Report given to SAMIR Omalley.
--- NOTE | 2018-11-02 19:32 | NUR ---
NURSE NOTES: Pt received awake, talking, bed in lowest position, with head of bed raised, Gtube feeding running, call light within reach, no c/o pain or signs of distress at the moment. will continue to monitor.
[2018-11-02 20:00] VITALS: BP 120/80
[2018-11-03] VITALS: BP 137/71
[2018-11-03 04:00] VITALS: BP 120/83
--- NOTE | 2018-11-03 06:58 | NUR ---
NURSE NOTES: received report from SAMIR Omalley. patient in bed. alert, verbally responsive. no respiratory distress noted. no c/o pain at this time. GTF running. IV RFA intact. bed in the lowest position. call light within reach. will continue to monitor.
--- NOTE | 2018-11-03 06:59 | NUR ---
HAND-OFF: Report given to SAMIR Esparza.
[2018-11-03 08:00] VITALS: BP 117/67
[2018-11-03] MEDS: Memantine 5 MG TAB ORAL SCH ×2 (08:52→17:20)
[2018-11-03] MEDS: Metoprolol Succinate XL 25mg tab ORAL SCH (08:52)
[2018-11-03] MEDS: Lisinopril 10mg tab GT SCH (08:53)
[2018-11-03] MEDS: Docusate 100mg/10ml Liq GT SCH ×2 (08:53→17:21)
[2018-11-03] MEDS: Heparin 5000 units/ml inj SUBQ SCH ×2 (08:55→20:06)
--- NOTE | 2018-11-03 09:55 | General Progress Note ---
Assessment/Plan Problem List: (1) Diabetes mellitus ICD Codes: E11.9 - Type 2 diabetes mellitus without complications SNOMED: 69858839 (2) Hypertension ICD Codes: I10 - Essential (primary) hypertension SNOMED: 61281249 (3) Alzheimer's dementia ICD Codes: G30.9 - Alzheimer's disease, unspecified; F02.80 - Dementia in other diseases classified elsewhere without behavioral disturbance SNOMED: 18378614 (4) PEG (percutaneous endoscopic gastrostomy) adjustment/replacement/removal ICD Codes: Z43.1 - Encounter for attention to gastrostomy SNOMED: 806056244, 626104603 (5) Normocytic anemia ICD Codes: D64.9 - Anemia, unspecified SNOMED: 230199590 Assessment/Plan speech eval appreciated GTF>>> tolerated GT care and flush stable H&H neg stool ob pending ID consult fu labs Subjective ROS Limited/Unobtainable: No Allergies: Coded Allergies: No Known Allergies (Unverified , 10/29/18) Objective Last 24 Hour Vital Signs Date Time Temp Pulse Resp B/P (MAP) Pulse Ox O2 Delivery O2 Flow Rate FiO2 11/03/18 09:00 Room Air 11/03/18 08:53 117/67 11/03/18 08:52 98 117/67 11/03/18 08:52 98 117/67 11/03/18 08:00 97.9 98 18 117/67 (84) 97 11/03/18 04:00 97.7 95 18 120/83 (95) 95 11/03/18 00:00 97.5 98 18 137/71 (93) 95 11/02/18 21:49 95 20 Room Air 21 11/02/18 21:00 Room Air 11/02/18 20:00 97.7 96 19 120/80 (93) 98 11/02/18 16:00 99.0 93 17 107/65 (79) 97 11/02/18 12:00 97.9 102 16 103/63 (76) 96 Intake and Output 11/02/18 11/03/18 19:00 07:00 Intake Total 780 ml 960 ml Output Total 500 ml Balance 780 ml 460 ml Free Water 300 ml 300 ml Tube Feeding 480 ml 660 ml Output Urine Total 500 ml # Bowel Movements 1 Height (Feet): 5 Height (Inches): 0.00 Weight (Pounds): 119 General Appearance: no apparent distress EENT: normal ENT inspection Neck: supple Cardiovascular: normal rate Respiratory/Chest: decreased breath sounds Abdomen: normal bowel sounds, non tender, soft Extremities: non-tender Brent Shepherd MD Nov 03, 2018 09:55
--- NOTE | 2018-11-03 09:59 | NUR ---
*-* NO INSURANCE INFORMATION IN THE BAR TO SEND CLINICALS *-/*
[2018-11-03 12:00] VITALS: BP 129/72
--- NOTE | 2018-11-03 12:01 | NUR ---
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 PYELONEPHRITIS VS: BP 137/71, P 98, T 97.5, RR 18, SpO2 95 IS:MEMANTINE 5mg NORVASC 10mg GT LISINOPRIL 10mg GT METOPROLOL 75mg HEPARIN SUBQ MED/SURG STATUS
--- NOTE | 2018-11-03 12:01 | NUR ---
NURSE NOTES: spoke to [facility] regarding the report about ESBL urine on 11/02/2018. the only result the patient had was the one on 10/29/2018 and patient off ATB. notified Dr. Harris and received order she is colonized. CASSIE preciado is working for [facility].
--- NOTE | 2018-11-03 13:43 | Pulmonology Progress Note ---
Assessment/Plan Problems: (1) Hypertension (2) Diabetes mellitus (3) Alzheimer's dementia (4) PEG (percutaneous endoscopic gastrostomy) adjustment/replacement/removal Assessment/Plan all reviewed tolerating feeding PEG aspiration precaution IV fluids symptomatic treatment check electrolytes dvt prophylaxis. Subjective ROS Limited/Unobtainable: No Constitutional: Reports: no symptoms HEENT: Repors: no symptoms Allergies: Coded Allergies: No Known Allergies (Unverified , 10/29/18) Objective Last 24 Hour Vital Signs Date Time Temp Pulse Resp B/P (MAP) Pulse Ox O2 Delivery O2 Flow Rate FiO2 11/03/18 12:00 97.7 98 20 129/72 (91) 97 11/03/18 09:00 Room Air 11/03/18 08:53 117/67 11/03/18 08:52 98 117/67 11/03/18 08:52 98 117/67 11/03/18 08:00 97.9 98 18 117/67 (84) 97 11/03/18 04:00 97.7 95 18 120/83 (95) 95 11/03/18 00:00 97.5 98 18 137/71 (93) 95 11/02/18 21:49 95 20 Room Air 21 11/02/18 21:00 Room Air 11/02/18 20:00 97.7 96 19 120/80 (93) 98 11/02/18 16:00 99.0 93 17 107/65 (79) 97 Intake and Output 11/02/18 11/03/18 19:00 07:00 Intake Total 780 ml 1020 ml Output Total 500 ml Balance 780 ml 520 ml Free Water 300 ml 300 ml Tube Feeding 480 ml 720 ml Output Urine Total 500 ml # Bowel Movements 1 Objective General Appearance: combative, cachetic Lines, tubes and drains: peripheral HEENT: normocephalic, atraumatic Neck: non-tender, normal alignment Respiratory/Chest: chest wall non-tender, lungs clear Cardiovascular/Chest: normal rate Abdomen: normal bowel sounds, soft Genitourinary/Rectal: normal genital exam Extremities: normal range of motion Current Medications Medications (Trade) Dose Ordered Sig/Bia Route PRN Reason Start Time Stop Time Status Last Admin Dose Admin Acetaminophen (Tylenol) 650 mg Q4H PRN ORAL fever 10/29/18 22:30 11/28/18 22:29 Albuterol/ Ipratropium (Albuterol/ Ipratropium) 3 ml Q4H PRN HHN Shortness of Breath 10/29/18 22:30 11/03/18 22:29 Amlodipine Besylate (Norvasc) 10 mg DAILY GT 10/30/18 09:00 11/29/18 08:59 11/03/18 08:52 Docusate Sodium (Colace) 100 mg BID GT 10/30/18 09:00 11/29/18 08:59 11/03/18 08:53 Heparin Sodium (Porcine) (Heparin 5000 units/ml) 5,000 units EVERY 12 HOURS SUBQ 10/30/18 09:00 11/29/18 08:59 11/03/18 08:55 Lisinopril (Zestril) 10 mg DAILY GT 10/30/18 09:00 11/29/18 08:59 11/03/18 08:53 Lorazepam (Ativan) 0.5 mg Q6H PRN ORAL For Anxiety 10/31/18 05:15 11/07/18 05:14 Memantine (Namenda) 5 mg BID ORAL 10/31/18 09:00 11/30/18 08:59 11/03/18 08:52 Metoprolol Succinate (Toprol XL) 75 mg DAILY ORAL 10/30/18 09:00 11/29/18 08:59 11/03/18 08:52 Morphine Sulfate (Morphine Sulfate) 2 mg Q4H PRN IVP Moderate Pain (Pain Scale 4-6) 10/29/18 22:30 11/05/18 22:29 Ondansetron HCl (Zofran) 4 mg Q6H PRN IVP Nausea & Vomiting 10/29/18 22:30 11/28/18 22:29 Polyethylene Glycol (Miralax) 17 gm DAILYPRN PRN ORAL Constipation 10/29/18 22:30 11/28/18 22:29 Temazepam (Restoril) 15 mg HSPRN PRN ORAL Insomnia 10/29/18 22:30 11/05/18 22:29 Roberto Echevarria MD Nov 03, 2018 13:43
--- NOTE | 2018-11-03 15:05 | Infectious Diseases Prog Note ---
Assessment/Plan Assessment/Plan Assessment: GT dislodgment -KUB: Gastrostomy tube within the stomach. No leak identified. Pyuria- assymptomatic -u/a wbc tnct, nit neg, leuk +3; ucx >100k E. Coli Afebrile No leukocytosis HTN Dementia dysphagia s/p GT FTT SNF resident Plan: -Continue to monitor off abx as no fever, leukocytosis and no UTI symptoms; will monitor off abx -10/30 SP IV Vancomycin and Cefepime #1 -10/29 SP Ceftriaxone x1 -f.u cx -Monitor CBC/CMP, temperatures -GT care -GI f/u -wound care per hospital protocol -Aspiration precautions Subjective Allergies: Coded Allergies: No Known Allergies (Unverified , 10/29/18) Subjective afebrile no leukocytosis off abx Objective Vital Signs Last 24 Hour Vital Signs Date Time Temp Pulse Resp B/P (MAP) Pulse Ox O2 Delivery O2 Flow Rate FiO2 11/03/18 12:00 97.7 98 20 129/72 (91) 97 11/03/18 09:00 Room Air 11/03/18 08:53 117/67 11/03/18 08:52 98 117/67 11/03/18 08:52 98 117/67 11/03/18 08:00 97.9 98 18 117/67 (84) 97 11/03/18 04:00 97.7 95 18 120/83 (95) 95 11/03/18 00:00 97.5 98 18 137/71 (93) 95 11/02/18 21:49 95 20 Room Air 21 11/02/18 21:00 Room Air 11/02/18 20:00 97.7 96 19 120/80 (93) 98 11/02/18 16:00 99.0 93 17 107/65 (79) 97 Height (Feet): 5 Height (Inches): 0.00 Weight (Pounds): 119 Objective General Appearance: cachetic Lines, tubes and drains: peripheral HEENT: normocephalic, atraumatic Neck: non-tender, normal alignment Respiratory/Chest: chest wall non-tender, lungs clear Breasts: no masses Cardiovascular/Chest: normal rate, no JVD Abdomen: normal bowel sounds, hyperactive bowel sounds Genitourinary/Rectal: normal genital exam, normal prostate exam Current Medications Medications (Trade) Dose Ordered Sig/Bia Route PRN Reason Start Time Stop Time Status Last Admin Dose Admin Acetaminophen (Tylenol) 650 mg Q4H PRN ORAL fever 10/29/18 22:30 11/28/18 22:29 Albuterol/ Ipratropium (Albuterol/ Ipratropium) 3 ml Q4H PRN HHN Shortness of Breath 10/29/18 22:30 11/03/18 22:29 Amlodipine Besylate (Norvasc) 10 mg DAILY GT 10/30/18 09:00 11/29/18 08:59 11/03/18 08:52 Docusate Sodium (Colace) 100 mg BID GT 10/30/18 09:00 11/29/18 08:59 11/03/18 08:53 Heparin Sodium (Porcine) (Heparin 5000 units/ml) 5,000 units EVERY 12 HOURS SUBQ 10/30/18 09:00 11/29/18 08:59 11/03/18 08:55 Lisinopril (Zestril) 10 mg DAILY GT 10/30/18 09:00 11/29/18 08:59 11/03/18 08:53 Lorazepam (Ativan) 0.5 mg Q6H PRN ORAL For Anxiety 10/31/18 05:15 11/07/18 05:14 Memantine (Namenda) 5 mg BID ORAL 10/31/18 09:00 11/30/18 08:59 11/03/18 08:52 Metoprolol Succinate (Toprol XL) 75 mg DAILY ORAL 10/30/18 09:00 11/29/18 08:59 11/03/18 08:52 Morphine Sulfate (Morphine Sulfate) 2 mg Q4H PRN IVP Moderate Pain (Pain Scale 4-6) 10/29/18 22:30 11/05/18 22:29 Ondansetron HCl (Zofran) 4 mg Q6H PRN IVP Nausea & Vomiting 10/29/18 22:30 11/28/18 22:29 Polyethylene Glycol (Miralax) 17 gm DAILYPRN PRN ORAL Constipation 10/29/18 22:30 11/28/18 22:29 Temazepam (Restoril) 15 mg HSPRN PRN ORAL Insomnia 10/29/18 22:30 11/05/18 22:29 Raissa Taylor M.D. Nov 03, 2018 15:05
--- NOTE | 2018-11-03 15:06 | NUR ---
*-* DISCHARGE PLANNING *-* PATIENT HAS BEEN REFERRED TO: 1. [facility] P:[phone] F:[phone] 2. [facility] P:[phone] F:[phone] 3. [facility] P:[phone] F:[phone] 4. [facility] P:[phone] F:[phone] 5. [facility] P:[phone] F:[phone] 6. [facility] P:[phone] F:[phone] 7. [facility] P:[phone] F:[phone] 8. [facility] P:[phone] F:[phone] 9. [facility] P:[phone] F:[phone] 10. [facility] P:[phone] F:[phone]
--- NOTE | 2018-11-03 15:08 | NUR ---
STAGE ELECTRICIAN NOTES SPOKE WITH HIEN FROM [place], MADE AWARE OF FACILITIES [facility], [facility] UNABLE TO ACCEPT PT AT THIS TIME. SPOKE WITH BROTHER MAURILIO, REQUESTING PT TO BE PLACED IN [facility]. DISCHARGE PLANNING ON GOING. [facility] [phone] [facility] NO FEMALE BED AT THIS TIME [facility] SPOKE WITH JORI NO FEMALE BEDS AVAILABLE [phone] [facility] [phone] NO FEMALE BEDS AVAILABLE. [facility] [phone] [place] NO FEMALE BEDS [facility] [phone] MARK[facility] NO BED [facility] [phone] KO NO BEDS [place] [phone] NO FEMALE BED [facility] [phone] [facility] [facility] [phone] [facility] [phone] IN REVIEW
--- NOTE | 2018-11-03 15:40 | NUR ---
RD ASSESSMENT & RECOMMENDATIONS SEE CARE ACTIVITY FOR COMPLETE ASSESSMENT DAILY ESTIMATED NEEDS: Needs based on cardiac/ 40.3kg 25-30 kcals/kg 7685-5317 total kcals 1-1.2 g protein/kg 40-48 g total protein 25-30 mL/kg 2242-2095 total fluid mLs NUTRITION DIAGNOSIS: Swallowing difficulty R/T dysphagia as evidenced by pt is PEG dep. CURRENT TF:Glucerna 1.2 @ 60ml/hr x 20 hrs PO DIET RECOMMENDATIONS: IF SAFE FOR PO -> REGULAR/ texture per APPROVER ENTERAL NUTRITION RECOMMENDATIONS: Glucerna 1.2 @ 50ml/hr x 20 hrs to provide 1000ML, 1200kcal, 60g prot, 805ml free water * Rec to LOWER goal rate to 50ml/hr x 20 hrs -> meets 100% est kcal/prot needs. * HOB over 30 degrees/ water flush per MD. ADDITIONAL RECOMMENDATIONS: * Calibrated bedscale wt * Per SNF: HT=4'7", most recent wt=86lbs/ bedscale wt on 10/30=88lbs * Consider SSI -> on accucheck without coverage at this time POC glu elev ([phone] 162) * Monitor lytes, replete as needed * SKin integrity: Elliott 1pkt BID, rec Wound eval (sacral wound photo) .
[2018-11-03 16:00] VITALS: BP 118/69
--- NOTE | 2018-11-03 16:39 | General Progress Note ---
Assessment/Plan Assessment/Plan Assessment/Plan # Failure to thrive - decreased bmi and low protein, is peg tube dependent --> cea is 3.3, spep is negative --> upep is pending --> will also obtain q3d caloric counts --> may consider mirtazapine as appetite stimulant --> rate feeding per nt recs # Anemia of chronic disease due to underlying chronic medical issues, multifactorial --> Anemia workup has been reviewed and ferritin is >1500 --> No evidence of hemolysis is noted, peripheral smear has been reviewed. --> Hgb goal >7. Transfuse prn. --> Epogen or iron at this time is not particularly indicated --> Medications have been reviewed --> evaluate with Gi team prn # Hyperprotenemia with decreased albumin -- this is a dissociation that is abnormal --> spep is negative, f/u upep as outpatient --> if above results in a m-spike or abnormally enhanced protein, will need to send off immunofixation serum/urine --> in the case of a m-spike or abnormally enhanced protein, will obtain a bone marrow biopsy # Hypertension - sbp goal <140 --> appreciate cards recs --> appreciate cards recs # Diabetes mellitus --> iss as needed and accuchecks qac and qhs # Alzheimer's dementia # PEG (percutaneous endoscopic gastrostomy) adjustment/replacement/removal --> appreciate gi recs # Placement/dispo to snf The timing of this note does not necessarily reflect the time of the patient was seen. Greatly appreciate consultation! Subjective HEENT: Denies: no symptoms, eye pain, blurred vision, tearing, double vision, ear pain, ear discharge, nose pain, nose congestion, throat pain, throat swelling, mouth pain, mouth swelling, other Cardiovascular: Denies: no symptoms, chest pain, edema, irregular heart rate, lightheadedness, palpitations, syncope, other Respiratory: Denies: no symptoms, cough, orthopnea, shortness of breath, SOB with excertion, SOB at rest, sputum, stridor, wheezing, other Genitourinary: Denies: no symptoms, burning, discharge, frequency, flank pain, hematuria, incontinence, pain, urgency, other Neurologic/Psychiatric: Denies: no symptoms, anxiety, depressed, emotional problems, headache, numbness, paresthesia, pre-existing deficit, seizure, tingling, tremors, weakness, other Endocrine: Denies: no symptoms, excessive sweating, flushing, intolerance to cold, intolerance to heat, increased hunger, increased thirst, increased urine, unexplained weight gain, unexplained weight loss, other Hematologic/Lymphatic: Denies: no symptoms, anemia, easy bleeding, easy bruising, other Allergies: Coded Allergies: No Known Allergies (Unverified , 10/29/18) Subjective 10/31: no events, peg is in, cbc reviewed, she is alert 11/01: cleared for dc by id and psych 11/03: pending placement, cbc was reviewed Objective Last 24 Hour Vital Signs Date Time Temp Pulse Resp B/P (MAP) Pulse Ox O2 Delivery O2 Flow Rate FiO2 11/03/18 12:00 97.7 98 20 129/72 (91) 97 11/03/18 09:00 Room Air 11/03/18 08:53 117/67 11/03/18 08:52 98 117/67 11/03/18 08:52 98 117/67 11/03/18 08:00 97.9 98 18 117/67 (84) 97 11/03/18 04:00 97.7 95 18 120/83 (95) 95 11/03/18 00:00 97.5 98 18 137/71 (93) 95 11/02/18 21:49 95 20 Room Air 21 11/02/18 21:00 Room Air 11/02/18 20:00 97.7 96 19 120/80 (93) 98 Intake and Output 11/02/18 11/03/18 19:00 07:00 Intake Total 780 ml 1020 ml Output Total 500 ml Balance 780 ml 520 ml Free Water 300 ml 300 ml Tube Feeding 480 ml 720 ml Output Urine Total 500 ml # Bowel Movements 1 Height (Feet): 5 Height (Inches): 0.00 Weight (Pounds): 119 Objective Vitals: reviewed if any abnormal, note them General Appearance: NAD HEENT: normocephalic, atraumatic Neck: non-tender, normal alignment Respiratory/Chest: normal breath sounds bilaterally Cardiovascular/Chest: normal peripheral pulses, normal rate Abdomen: normal bowel sounds, soft, nontender Extremities: normal range of motion Brennan Gonzales MD Nov 03, 2018 16:39
--- NOTE | 2018-11-03 19:25 | NUR ---
HAND-OFF: Report given to SMAIR Cavazos.
--- NOTE | 2018-11-03 19:30 | NUR ---
NURSE NOTES: Patient in asleep in bed, no signs of complaints, not in acute respiratory distress. On gtube feeding. Call light and needs in reach. Bed in lowest position, lock engaged and alarm on. Will continue to monitor.
--- NOTE | 2018-11-03 21:58 | General Progress Note ---
Assessment/Plan Problem List: (1) Anemia ICD Codes: D64.9 - Anemia, unspecified SNOMED: 101468913 (2) Pyelonephritis ICD Codes: N12 - Tubulo-interstitial nephritis, not specified as acute or chronic SNOMED: 64720058 (3) Normocytic anemia ICD Codes: D64.9 - Anemia, unspecified SNOMED: 081173974 (4) Hypertension ICD Codes: I10 - Essential (primary) hypertension SNOMED: 72033883 (5) Diabetes mellitus ICD Codes: E11.9 - Type 2 diabetes mellitus without complications SNOMED: 30662758 (6) Alzheimer's dementia ICD Codes: G30.9 - Alzheimer's disease, unspecified; F02.80 - Dementia in other diseases classified elsewhere without behavioral disturbance SNOMED: 70206556 Status: progressing Assessment/Plan anemia poor historian h/h stable sugar is improving obs niddm reviewed chart and labs and meds Subjective ROS Limited/Unobtainable: Yes Allergies: Coded Allergies: No Known Allergies (Unverified , 10/29/18) Objective Last 24 Hour Vital Signs Date Time Temp Pulse Resp B/P (MAP) Pulse Ox O2 Delivery O2 Flow Rate FiO2 11/03/18 16:00 98.1 93 18 118/69 (85) 99 11/03/18 12:00 97.7 98 20 129/72 (91) 97 11/03/18 09:00 Room Air 11/03/18 08:53 117/67 11/03/18 08:52 98 117/67 11/03/18 08:52 98 117/67 11/03/18 08:00 97.9 98 18 117/67 (84) 97 11/03/18 04:00 97.7 95 18 120/83 (95) 95 11/03/18 00:00 97.5 98 18 137/71 (93) 95 Intake and Output 11/02/18 11/03/18 19:00 07:00 Intake Total 780 ml 1020 ml Output Total 500 ml Balance 780 ml 520 ml Free Water 300 ml 300 ml Tube Feeding 480 ml 720 ml Output Urine Total 500 ml # Bowel Movements 1 Height (Feet): 5 Height (Inches): 0.00 Weight (Pounds): 119 Neck: supple Cardiovascular: normal rate Respiratory/Chest: lungs clear Nora Alexander MD Nov 03, 2018 21:58
[2018-11-04] VITALS: BP 120/68
[2018-11-04 04:00] VITALS: BP 116/79
--- NOTE | 2018-11-04 07:30 | NUR ---
NURSE NOTES: Received pt from SAMIR HARPER. Pt is confused and orient x1. Pt is in RA. No SOB or acute respiratory distress noted. pt has intact iv access LFA 24G SL. Pt has g tube in place is running well. all needs attended, bed is locked and is in the lowest position. call light within easy reach. will continue to monitor.
--- NOTE | 2018-11-04 07:44 | NUR ---
HAND-OFF: Report given to SAMIR Feliz.
[2018-11-04 08:00] VITALS: BP 121/78
[2018-11-04 08:12] LABS: BASOPHILS % (AUTO) 1.1 % (0.0-2.0); EOSINOPHILS % (AUTO) 1.9 % (0.0-3.0); HEMATOCRIT 30.6 % (37.0-47.0); HEMOGLOBIN 9.8 G/DL (12.0-16.0); LYMPHOCYTES % (AUTO) 24.6 % (20.0-45.0); MEAN CORPUSCULAR VOLUME 90 FL (80-99); MONOCYTES % (AUTO) 6.1 % (1.0-10.0); NEUTROPHILS % (AUTO) 66.3 % (45.0-75.0); PLATELET COUNT 435 K/UL (150-450); RED BLOOD COUNT 3.38 M/UL (4.20-5.40); RED CELL DISTRIBUTION WIDTH 16.7 % (11.6-14.8); WHITE BLOOD COUNT 12.2 K/UL (4.8-10.8)
[2018-11-04 08:18] LABS: ANION GAP 9 mmol/L (5-15); BLOOD UREA NITROGEN 21 mg/dL (7-18); CALCIUM 9.7 MG/DL (8.5-10.1); CARBON DIOXIDE 28 MMOL/L (21-32); CHLORIDE 101 MMOL/L (98-107); CREATININE 0.8 MG/DL (0.55-1.30); POTASSIUM 4.3 MMOL/L (3.5-5.1); SODIUM 138 MMOL/L (136-145)
--- NOTE | 2018-11-04 08:48 | General Progress Note ---
Assessment/Plan Problem List: (1) Diabetes mellitus ICD Codes: E11.9 - Type 2 diabetes mellitus without complications SNOMED: 84665740 (2) Hypertension ICD Codes: I10 - Essential (primary) hypertension SNOMED: 32266305 (3) Alzheimer's dementia ICD Codes: G30.9 - Alzheimer's disease, unspecified; F02.80 - Dementia in other diseases classified elsewhere without behavioral disturbance SNOMED: 61846855 (4) PEG (percutaneous endoscopic gastrostomy) adjustment/replacement/removal ICD Codes: Z43.1 - Encounter for attention to gastrostomy SNOMED: 192669660, 127149442 (5) Normocytic anemia ICD Codes: D64.9 - Anemia, unspecified SNOMED: 394787774 Assessment/Plan speech eval appreciated GTF>>> tolerated GT care and flush stable H&H neg stool ob pending placement fu labs Subjective ROS Limited/Unobtainable: No Allergies: Coded Allergies: No Known Allergies (Unverified , 10/29/18) Objective Last 24 Hour Vital Signs Date Time Temp Pulse Resp B/P (MAP) Pulse Ox O2 Delivery O2 Flow Rate FiO2 11/04/18 08:00 97.9 98 16 121/78 (92) 95 11/04/18 04:00 97.4 101 16 116/79 (91) 98 11/04/18 02:12 97 18 Room Air 21 11/04/18 00:00 97.6 105 16 120/68 (85) 95 11/03/18 21:00 Room Air 11/03/18 16:00 98.1 93 18 118/69 (85) 99 11/03/18 12:00 97.7 98 20 129/72 (91) 97 11/03/18 09:00 Room Air 11/03/18 08:53 117/67 11/03/18 08:52 98 117/67 11/03/18 08:52 98 117/67 Intake and Output 11/03/18 11/04/18 19:00 07:00 Intake Total 780 ml 960 ml Balance 780 ml 960 ml Free Water 300 ml 300 ml Tube Feeding 480 ml 660 ml # Voids 4 # Bowel Movements 1 Laboratory Tests 11/04/18 07:30: White Blood Count 12.2H, Red Blood Count 3.38L, Hemoglobin 9.8L, Hematocrit 30.6L, Mean Corpuscular Volume 90, Mean Corpuscular Hemoglobin 29.0, Mean Corpuscular Hemoglobin Concent 32.0, Red Cell Distribution Width 16.7H, Platelet Count 435, Mean Platelet Volume 6.9, Neutrophils (%) (Auto) 66.3, Lymphocytes (%) (Auto) 24.6, Monocytes (%) (Auto) 6.1, Eosinophils (%) (Auto) 1.9, Basophils (%) (Auto) 1.1, Sodium Level 138, Potassium Level 4.3, Chloride Level 101, Carbon Dioxide Level 28, Anion Gap 9, Blood Urea Nitrogen 21H, Creatinine 0.8, Estimat Glomerular Filtration Rate > 60, Glucose Level 172H, Calcium Level 9.7 Height (Feet): 5 Height (Inches): 0.00 Weight (Pounds): 119 General Appearance: no apparent distress EENT: normal ENT inspection Neck: supple Cardiovascular: normal rate Respiratory/Chest: decreased breath sounds Abdomen: normal bowel sounds, non tender, soft Extremities: non-tender Brent Shepherd MD Nov 04, 2018 08:48
[2018-11-04] MEDS: Docusate 100mg/10ml Liq GT SCH ×2 (08:55→17:22)
[2018-11-04] MEDS: Memantine 5 MG TAB ORAL SCH ×2 (08:55→17:22)
[2018-11-04] MEDS: Metoprolol Succinate XL 25mg tab ORAL SCH (08:56)
[2018-11-04] MEDS: Lisinopril 10mg tab GT SCH (08:56)
[2018-11-04] MEDS: Heparin 5000 units/ml inj SUBQ SCH ×2 (08:57→20:43)
--- NOTE | 2018-11-04 10:52 | NUR ---
*-* DISCHARGE PLANNING *-* PATIENT HAS BEEN REFERRED TO: 1. [facility] P:[phone] F:[phone] *-* NOT CONTRACTED 2. [facility] P:[phone] F:[phone] *-* NO FEMALE BEDS AVAILABLE S/W [facility] 3. [facility] P:[phone] F:[phone] *-* NO SENIOR ADMINISTRATIVE SUPPORT BEDS ONLY SHORT TERM BEDS S/W CASSANDRA DEL REAL STILL WAITING ON FAX*-* 4. [facility] P:[phone] F:[phone] *-* S/W KAREN NO SENIOR ADMINISTRATIVE SUPPORT BEDS ONLY SHORT TERM D/C COMING UP*-* 5. [facility] P:[phone] F:[phone] *-* NOT CONTRACTED WITH [facility] FOR 7YRS *-*
--- NOTE | 2018-11-04 11:12 | NUR ---
ST NOTE: D/W , DR. GRISSOM. PER SARABJIT BOOTH FOR VIDEOSWALLOW STUDY. WILL FOLLOW UP
[2018-11-04 12:00] VITALS: BP 114/67
--- NOTE | 2018-11-04 12:34 | Pulmonology Progress Note ---
Assessment/Plan Problems: (1) Hypertension (2) Diabetes mellitus (3) Alzheimer's dementia (4) PEG (percutaneous endoscopic gastrostomy) adjustment/replacement/removal Assessment/Plan all reviewed tolerating feeding PEG aspiration precaution IV fluids symptomatic treatment check electrolytes dvt prophylaxis. Subjective ROS Limited/Unobtainable: No Constitutional: Reports: no symptoms HEENT: Repors: no symptoms Allergies: Coded Allergies: No Known Allergies (Unverified , 10/29/18) Objective Last 24 Hour Vital Signs Date Time Temp Pulse Resp B/P (MAP) Pulse Ox O2 Delivery O2 Flow Rate FiO2 11/04/18 09:00 Room Air 11/04/18 08:56 98 121/78 11/04/18 08:56 121/78 11/04/18 08:56 98 121/78 11/04/18 08:00 97.9 98 16 121/78 (92) 95 11/04/18 04:00 97.4 101 16 116/79 (91) 98 11/04/18 02:12 97 18 Room Air 21 11/04/18 00:00 97.6 105 16 120/68 (85) 95 11/03/18 21:00 Room Air 11/03/18 16:00 98.1 93 18 118/69 (85) 99 Intake and Output 11/03/18 11/04/18 19:00 07:00 Intake Total 780 ml 960 ml Balance 780 ml 960 ml Free Water 300 ml 300 ml Tube Feeding 480 ml 660 ml # Voids 4 # Bowel Movements 1 Objective General Appearance: combative, cachetic Lines, tubes and drains: peripheral HEENT: normocephalic, atraumatic Neck: non-tender, normal alignment Respiratory/Chest: chest wall non-tender, lungs clear Cardiovascular/Chest: normal rate Abdomen: normal bowel sounds, soft Genitourinary/Rectal: normal genital exam Extremities: normal range of motion Laboratory Tests 11/04/18 07:30: White Blood Count 12.2H, Red Blood Count 3.38L, Hemoglobin 9.8L, Hematocrit 30.6L, Mean Corpuscular Volume 90, Mean Corpuscular Hemoglobin 29.0, Mean Corpuscular Hemoglobin Concent 32.0, Red Cell Distribution Width 16.7H, Platelet Count 435, Mean Platelet Volume 6.9, Neutrophils (%) (Auto) 66.3, Lymphocytes (%) (Auto) 24.6, Monocytes (%) (Auto) 6.1, Eosinophils (%) (Auto) 1.9, Basophils (%) (Auto) 1.1, Sodium Level 138, Potassium Level 4.3, Chloride Level 101, Carbon Dioxide Level 28, Anion Gap 9, Blood Urea Nitrogen 21H, Creatinine 0.8, Estimat Glomerular Filtration Rate > 60, Glucose Level 172H, Calcium Level 9.7 Current Medications Medications (Trade) Dose Ordered Sig/Bia Route PRN Reason Start Time Stop Time Status Last Admin Dose Admin Acetaminophen (Tylenol) 650 mg Q4H PRN ORAL fever 10/29/18 22:30 11/28/18 22:29 Amlodipine Besylate (Norvasc) 10 mg DAILY GT 10/30/18 09:00 11/29/18 08:59 11/04/18 08:56 Docusate Sodium (Colace) 100 mg BID GT 10/30/18 09:00 11/29/18 08:59 11/04/18 08:55 Heparin Sodium (Porcine) (Heparin 5000 units/ml) 5,000 units EVERY 12 HOURS SUBQ 10/30/18 09:00 11/29/18 08:59 11/04/18 08:57 Lisinopril (Zestril) 10 mg DAILY GT 10/30/18 09:00 11/29/18 08:59 11/04/18 08:56 Lorazepam (Ativan) 0.5 mg Q6H PRN ORAL For Anxiety 10/31/18 05:15 11/07/18 05:14 Memantine (Namenda) 5 mg BID ORAL 10/31/18 09:00 11/30/18 08:59 11/04/18 08:55 Metoprolol Succinate (Toprol XL) 75 mg DAILY ORAL 10/30/18 09:00 11/29/18 08:59 11/04/18 08:56 Morphine Sulfate (Morphine Sulfate) 2 mg Q4H PRN IVP Moderate Pain (Pain Scale 4-6) 10/29/18 22:30 11/05/18 22:29 Ondansetron HCl (Zofran) 4 mg Q6H PRN IVP Nausea & Vomiting 10/29/18 22:30 11/28/18 22:29 Polyethylene Glycol (Miralax) 17 gm DAILYPRN PRN ORAL Constipation 10/29/18 22:30 11/28/18 22:29 Temazepam (Restoril) 15 mg HSPRN PRN ORAL Insomnia 10/29/18 22:30 11/05/18 22:29 Roberto Echevarria MD Nov 04, 2018 12:33
--- NOTE | 2018-11-04 12:52 | General Progress Note ---
Assessment/Plan Assessment/Plan Assessment/Plan # Failure to thrive - decreased bmi and low protein, is peg tube dependent --> cea is 3.3, spep is negative --> upep is also negative --> will also obtain q3d caloric counts --> started mirtazapine as appetite stimulant --> rate feeding per nt recs # Anemia of chronic disease due to underlying chronic medical issues, multifactorial --> Anemia workup has been reviewed and ferritin is >1500 --> No evidence of hemolysis is noted, peripheral smear has been reviewed. --> Hgb goal >7. Transfuse prn. --> Epogen or iron at this time is not particularly indicated --> Medications have been reviewed --> evaluate with Gi team prn # Hyperprotenemia with decreased albumin -- this is a dissociation that is abnormal --> spep is negative, upep is negative --> if above results in a m-spike or abnormally enhanced protein, will need to send off immunofixation serum/urine --> in the case of a m-spike or abnormally enhanced protein, will obtain a bone marrow biopsy # Iron overload -- ferritin is 1553, could be related to shavonne transfusion --> may need chelation therapy # Hypertension - sbp goal <140 --> appreciate cards recs # Diabetes mellitus --> iss as needed and accuchecks qac and qhs # Alzheimer's dementia # PEG (percutaneous endoscopic gastrostomy) adjustment/replacement/removal --> appreciate gi recs # Placement/dispo to snf The timing of this note does not necessarily reflect the time of the patient was seen. Greatly appreciate consultation! Subjective Constitutional: Denies: no symptoms, chills, diaphoresis, fever, malaise, weakness, other HEENT: Denies: no symptoms, eye pain, blurred vision, tearing, double vision, ear pain, ear discharge, nose pain, nose congestion, throat pain, throat swelling, mouth pain, mouth swelling, other Cardiovascular: Denies: no symptoms, chest pain, edema, irregular heart rate, lightheadedness, palpitations, syncope, other Respiratory: Denies: no symptoms, cough, orthopnea, shortness of breath, SOB with excertion, SOB at rest, sputum, stridor, wheezing, other Gastrointestinal/Abdominal: Denies: no symptoms, abdomen distended, abdominal pain, black stools, tarry stools, blood in stool, constipated, diarrhea, difficulty swallowing, nausea, poor appetite, poor fluid intake, rectal bleeding , vomiting, other Genitourinary: Denies: no symptoms, burning, discharge, frequency, flank pain, hematuria, incontinence, pain, urgency, other Neurologic/Psychiatric: Denies: no symptoms, anxiety, depressed, emotional problems, headache, numbness, paresthesia, pre-existing deficit, seizure, tingling, tremors, weakness, other Endocrine: Denies: no symptoms, excessive sweating, flushing, intolerance to cold, intolerance to heat, increased hunger, increased thirst, increased urine, unexplained weight gain, unexplained weight loss, other Allergies: Coded Allergies: No Known Allergies (Unverified , 10/29/18) Subjective 10/31: no events, peg is in, cbc reviewed, she is alert 11/01: cleared for dc by id and psych 11/03: pending placement, cbc was reviewed 11/04: still is pending placement, gt feeds working well, no f/c Objective Last 24 Hour Vital Signs Date Time Temp Pulse Resp B/P (MAP) Pulse Ox O2 Delivery O2 Flow Rate FiO2 11/04/18 09:00 Room Air 11/04/18 08:56 98 121/78 11/04/18 08:56 121/78 11/04/18 08:56 98 121/78 11/04/18 08:00 97.9 98 16 121/78 (92) 95 11/04/18 04:00 97.4 101 16 116/79 (91) 98 11/04/18 02:12 97 18 Room Air 21 11/04/18 00:00 97.6 105 16 120/68 (85) 95 11/03/18 21:00 Room Air 11/03/18 16:00 98.1 93 18 118/69 (85) 99 Intake and Output 11/03/18 11/04/18 19:00 07:00 Intake Total 780 ml 960 ml Balance 780 ml 960 ml Free Water 300 ml 300 ml Tube Feeding 480 ml 660 ml # Voids 4 # Bowel Movements 1 Laboratory Tests 11/04/18 07:30: White Blood Count 12.2H, Red Blood Count 3.38L, Hemoglobin 9.8L, Hematocrit 30.6L, Mean Corpuscular Volume 90, Mean Corpuscular Hemoglobin 29.0, Mean Corpuscular Hemoglobin Concent 32.0, Red Cell Distribution Width 16.7H, Platelet Count 435, Mean Platelet Volume 6.9, Neutrophils (%) (Auto) 66.3, Lymphocytes (%) (Auto) 24.6, Monocytes (%) (Auto) 6.1, Eosinophils (%) (Auto) 1.9, Basophils (%) (Auto) 1.1, Sodium Level 138, Potassium Level 4.3, Chloride Level 101, Carbon Dioxide Level 28, Anion Gap 9, Blood Urea Nitrogen 21H, Creatinine 0.8, Estimat Glomerular Filtration Rate > 60, Glucose Level 172H, Calcium Level 9.7 Height (Feet): 5 Height (Inches): 0.00 Weight (Pounds): 119 Objective Vitals: reviewed if any abnormal, note them General Appearance: NAD HEENT: normocephalic, atraumatic Neck: non-tender, normal alignment Respiratory/Chest: normal breath sounds bilaterally Cardiovascular/Chest: normal peripheral pulses, normal rate Abdomen: normal bowel sounds, soft, nontender Extremities: normal range of motion Brennan Gonzales MD Nov 04, 2018 12:52
--- NOTE | 2018-11-04 13:39 | NUR ---
NURSE NOTES: pt left unit for swallow eval. waiting to come back.
--- NOTE | 2018-11-04 13:51 | Progress Note ---
DATE: 11/03/2018 SUBJECTIVE: This is a 68-year-old female patient with failure to thrive. She does indeed have altered mental status, confusion, decline in cognition below baseline. So, she does require daily psychiatric consultation. MENTAL STATUS EXAMINATION: This is a 68-year-old female. Appearance is disheveled. Attitude, irritable and agitated. Affect, guarded and restricted. Intellect poor. Mood depressed and anxious. Motor activity, psychomotor agitation. Attention span is poor. Orientation x2. Speech is low volume and slurred. Thought process, disorganized and illogical. Insight and judgment is poor. PLAN: Plan for this patient continue treatment with medications to stabilize her mood. Provided with 20 minutes of cognitive behavioral therapy to help identify automatic negative thoughts help to convert negative thoughts to more positive thoughts to reduce depression, anxiety, and suicidality. Chart reviewed. Discussed with staff. Seen and assessed at bedside. Sofia Coronel M.D. DR: ARISTEO JOB#: [id number] CC:
--- NOTE | 2018-11-04 14:12 | NUR ---
MANAGER WINTERDIETARY ASSISTANT SI: MALFUNCTIONING GT . PYELONEPHRITIS VS: BP 114/67, P 101, T 97.4, RR 18, SpO2 95 WBC 12.2, RBC 3.38, Hgb 9.8, Hct 30.6, BUN 21 IS: MEMANTINE 5mg NORVASC 10mg GT LISINOPRIL 10mg GT METOPROLOL 75mg HEPARIN SUBQ MED/SURG STATUS AWAITING PLACEMENT
--- NOTE | 2018-11-04 15:27 | NUR ---
ST NOTE: MODIFIED BARIUM SWALLOW STUDY COMPLETED MODIFIED BARIUM SWALLOW STUDY(MBSS) FULL REPORT WILL FOLLOW UNDER ST NOTE IN CARE ACTIVITY. PT ALERT, COOPERATIVE, SLIGHTLY CONFUSED BUT ABLE TO FOLLOW SIMPLE DIRECTIONS WHEN REQUESTED. GIVEN PO TRIALS: THIN LIQUIDS: THIN(TSPX2, MED CUP WITH CHIN DOWN AND STRAW-SEQUENTIAL). NECTAR THICK: TSP/MED CUP/STRAW-SEQUENTIAL HONEY THICK: TSP PUDDING: TSP IMPRESSION: PT PRESENTS WITH MILD TO MODERATE OROPHARYNGEAL DYSPHAGIA CHARACTERIZED BY INCREASED ORAL TRANSIT TIME AND OROPHARYNGEAL TRANSIT TIME DUE TO SENSORIMOTOR DEFICITS. ORAL RESIDUE WAS NOTED AFTER SWALLOW, WORSE WITH MORE THICKENED CONSISTENCIES DUE TO REDUCE LINGUAL MOTION; BUT ABLE TO CLEAR THE ORAL RESIDUE WTIH MULTIPLE SWALLOWS(3 TIMES). TRACE LARYNGEAL PENETRATION(LP) WITH THIN LIQUID DUE TO DELAYED SWALLOW, MILDLY REDUCED LARYNGEAL ELEVATION AND REDUCED LARYNGEAL VESTIBULE CLOSURE. MILD TONGUE BASE AND VALLECULAR RESIDUE DUE TO REDUCED TONGUE BASE RETRACTION. MIN TO MILD ESOPHAGEAL DYSPHAGIA(LATERAL VIEW ONLY) CHARACTERIZED BY ESOPHAGEAL RETENTION WITH RETROGRADE FLOW THROUGH PHARYNGO-ESOPHAGEAL RETENTION(TO PYRIFORM SINUSES). NO ASPIRATION WAS NOTED DURING THE MBSS BUT HAS RISK IF PRECAUTIONS ARE NOT STRICTLY APPLIED. PT BENEFITS FROM SWALLOW X 2 TO 3 TIMES, BREATH HOLD WITH EFFORTFUL SWALLOW. RECOMMENDATIONS: 1. CONTINUE LONG-TERM NONORAL FEEDING MEANS TO MEET NUTRITION AND HYDRATION NEEDS. 2. SLOWLY INITIATE NECTAR THICK LIQUIDS DIET(JUICE, SOUP) FOR ORAL GRATIFICATION 3. REFER PT TO PROCUREMENT PROFESSIONAL LOGISTICS AT DISCHARGE FACILITY TO FOLLOW UP(ADVANCED DIET TOLERATED) 4. SWALLOW TX. 5. CONSIDER SPEECH/LANGUAGE/COGNITIONS EVAL D/W PT AND XAVIER DAWSON AND INFORMED DR. JACIEL BOOTH. POSTED ASPIRATION PRECAUTIONS SIGN
[2018-11-04 16:00] VITALS: BP 103/66
--- NOTE | 2018-11-04 16:25 | NUR ---
*-* NO INSURANCE INFORMATION TO SEND CLINICALS AND REVIEWS *-*
--- NOTE | 2018-11-04 16:42 | Infectious Diseases Prog Note ---
Assessment/Plan Assessment/Plan Assessment: GT dislodgment -KUB: Gastrostomy tube within the stomach. No leak identified. Pyuria- assymptomatic -u/a wbc tnct, nit neg, leuk +3; ucx >100k E. Coli Afebrile Mild leukocytosis HTN Dementia dysphagia s/p GT FTT SNF resident Plan: -Continue to monitor off abx unless fever and rising leukocytosis -10/30 SP IV Vancomycin and Cefepime #1 -10/29 SP Ceftriaxone x1 -f.u cx -Monitor CBC/CMP, temperatures -GT care -GI f/u -wound care per hospital protocol -Aspiration precautions -CBC, CMP am Subjective Allergies: Coded Allergies: No Known Allergies (Unverified , 10/29/18) Subjective afebrile mild leukocytosis off abx Objective Vital Signs Last 24 Hour Vital Signs Date Time Temp Pulse Resp B/P (MAP) Pulse Ox O2 Delivery O2 Flow Rate FiO2 11/04/18 16:00 98.6 93 18 103/66 (78) 94 11/04/18 12:00 97.4 100 17 114/67 (83) 95 11/04/18 09:51 92 18 Room Air 21 11/04/18 09:00 Room Air 11/04/18 08:56 98 121/78 11/04/18 08:56 121/78 11/04/18 08:56 98 121/78 11/04/18 08:00 97.9 98 16 121/78 (92) 95 11/04/18 04:00 97.4 101 16 116/79 (91) 98 11/04/18 02:12 97 18 Room Air 21 11/04/18 00:00 97.6 105 16 120/68 (85) 95 11/03/18 21:00 Room Air Height (Feet): 5 Height (Inches): 0.00 Weight (Pounds): 119 Objective General Appearance: cachetic Lines, tubes and drains: peripheral HEENT: normocephalic, atraumatic Neck: non-tender, normal alignment Respiratory/Chest: chest wall non-tender, lungs clear Breasts: no masses Cardiovascular/Chest: normal rate, no JVD Abdomen: normal bowel sounds, hyperactive bowel sounds Genitourinary/Rectal: normal genital exam, normal prostate exam Laboratory Tests Test 11/04/18 07:30 White Blood Count 12.2 K/UL (4.8-10.8) H Red Blood Count 3.38 M/UL (4.20-5.40) L Hemoglobin 9.8 G/DL (12.0-16.0) L Hematocrit 30.6 % (37.0-47.0) L Mean Corpuscular Volume 90 FL (80-99) Mean Corpuscular Hemoglobin 29.0 PG (27.0-31.0) Mean Corpuscular Hemoglobin Concent 32.0 G/DL (32.0-36.0) Red Cell Distribution Width 16.7 % (11.6-14.8) H Platelet Count 435 K/UL (150-450) Mean Platelet Volume 6.9 FL (6.5-10.1) Neutrophils (%) (Auto) 66.3 % (45.0-75.0) Lymphocytes (%) (Auto) 24.6 % (20.0-45.0) Monocytes (%) (Auto) 6.1 % (1.0-10.0) Eosinophils (%) (Auto) 1.9 % (0.0-3.0) Basophils (%) (Auto) 1.1 % (0.0-2.0) Sodium Level 138 MMOL/L (136-145) Potassium Level 4.3 MMOL/L (3.5-5.1) Chloride Level 101 MMOL/L (98-107) Carbon Dioxide Level 28 MMOL/L (21-32) Anion Gap 9 mmol/L (5-15) Blood Urea Nitrogen 21 mg/dL (7-18) H Creatinine 0.8 MG/DL (0.55-1.30) Estimat Glomerular Filtration Rate > 60 mL/min (>60) Glucose Level 172 MG/DL (74-106) H Calcium Level 9.7 MG/DL (8.5-10.1) Current Medications Medications (Trade) Dose Ordered Sig/Bia Route PRN Reason Start Time Stop Time Status Last Admin Dose Admin Acetaminophen (Tylenol) 650 mg Q4H PRN ORAL fever 10/29/18 22:30 11/28/18 22:29 Amlodipine Besylate (Norvasc) 10 mg DAILY GT 10/30/18 09:00 11/29/18 08:59 11/04/18 08:56 Docusate Sodium (Colace) 100 mg BID GT 10/30/18 09:00 11/29/18 08:59 11/04/18 08:55 Heparin Sodium (Porcine) (Heparin 5000 units/ml) 5,000 units EVERY 12 HOURS SUBQ 10/30/18 09:00 11/29/18 08:59 11/04/18 08:57 Lisinopril (Zestril) 10 mg DAILY GT 10/30/18 09:00 11/29/18 08:59 11/04/18 08:56 Lorazepam (Ativan) 0.5 mg Q6H PRN ORAL For Anxiety 10/31/18 05:15 11/07/18 05:14 Memantine (Namenda) 5 mg BID ORAL 10/31/18 09:00 11/30/18 08:59 11/04/18 08:55 Metoprolol Succinate (Toprol XL) 75 mg DAILY ORAL 10/30/18 09:00 11/29/18 08:59 11/04/18 08:56 Morphine Sulfate (Morphine Sulfate) 2 mg Q4H PRN IVP Moderate Pain (Pain Scale 4-6) 10/29/18 22:30 11/05/18 22:29 Ondansetron HCl (Zofran) 4 mg Q6H PRN IVP Nausea & Vomiting 10/29/18 22:30 11/28/18 22:29 Polyethylene Glycol (Miralax) 17 gm DAILYPRN PRN ORAL Constipation 10/29/18 22:30 11/28/18 22:29 Temazepam (Restoril) 15 mg HSPRN PRN ORAL Insomnia 10/29/18 22:30 11/05/18 22:29 Raissa Taylor M.D. Nov 04, 2018 16:42
--- NOTE | 2018-11-04 17:34 | General Progress Note ---
Assessment/Plan Problem List: (1) Anemia ICD Codes: D64.9 - Anemia, unspecified SNOMED: 810553846 (2) Pyelonephritis ICD Codes: N12 - Tubulo-interstitial nephritis, not specified as acute or chronic SNOMED: 48154090 (3) Normocytic anemia ICD Codes: D64.9 - Anemia, unspecified SNOMED: 750928994 (4) Hypertension ICD Codes: I10 - Essential (primary) hypertension SNOMED: 07205836 (5) Diabetes mellitus ICD Codes: E11.9 - Type 2 diabetes mellitus without complications SNOMED: 72731958 (6) Alzheimer's dementia ICD Codes: G30.9 - Alzheimer's disease, unspecified; F02.80 - Dementia in other diseases classified elsewhere without behavioral disturbance SNOMED: 69510769 Status: progressing Assessment/Plan sugar is under good control htn vitals stable obs niddm reviewed chart and labs and meds Subjective ROS Limited/Unobtainable: Yes Allergies: Coded Allergies: No Known Allergies (Unverified , 10/29/18) Objective Last 24 Hour Vital Signs Date Time Temp Pulse Resp B/P (MAP) Pulse Ox O2 Delivery O2 Flow Rate FiO2 11/04/18 16:00 98.6 93 18 103/66 (78) 94 11/04/18 12:00 97.4 100 17 114/67 (83) 95 11/04/18 09:51 92 18 Room Air 21 11/04/18 09:00 Room Air 11/04/18 08:56 98 121/78 11/04/18 08:56 121/78 11/04/18 08:56 98 121/78 11/04/18 08:00 97.9 98 16 121/78 (92) 95 11/04/18 04:00 97.4 101 16 116/79 (91) 98 11/04/18 02:12 97 18 Room Air 21 11/04/18 00:00 97.6 105 16 120/68 (85) 95 11/03/18 21:00 Room Air Intake and Output 11/03/18 11/04/18 19:00 07:00 Intake Total 780 ml 960 ml Balance 780 ml 960 ml Free Water 300 ml 300 ml Tube Feeding 480 ml 660 ml # Voids 4 # Bowel Movements 1 Laboratory Tests 11/04/18 07:30: White Blood Count 12.2H, Red Blood Count 3.38L, Hemoglobin 9.8L, Hematocrit 30.6L, Mean Corpuscular Volume 90, Mean Corpuscular Hemoglobin 29.0, Mean Corpuscular Hemoglobin Concent 32.0, Red Cell Distribution Width 16.7H, Platelet Count 435, Mean Platelet Volume 6.9, Neutrophils (%) (Auto) 66.3, Lymphocytes (%) (Auto) 24.6, Monocytes (%) (Auto) 6.1, Eosinophils (%) (Auto) 1.9, Basophils (%) (Auto) 1.1, Sodium Level 138, Potassium Level 4.3, Chloride Level 101, Carbon Dioxide Level 28, Anion Gap 9, Blood Urea Nitrogen 21H, Creatinine 0.8, Estimat Glomerular Filtration Rate > 60, Glucose Level 172H, Calcium Level 9.7 Height (Feet): 5 Height (Inches): 0.00 Weight (Pounds): 119 Cardiovascular: regular rhythm Respiratory/Chest: lungs clear Abdomen: soft Nora Alexander MD Nov 04, 2018 17:34
--- NOTE | 2018-11-04 18:00 | Progress Note ---
DATE: 11/04/2018 SUBJECTIVE: This is a 68-year-old female patient. She continues to have some depression and confusion. She continues to have some mood lability. She continues to endorse on top of this. She is in the hospital due to failure to thrive, but cognition has declined below baseline. That is why her attending has requested daily psychiatric consultation. MENTAL STATUS EXAMINATION: This is a 68-year-old female. Appearance is disheveled. Attitude, irritable and agitated. Affect, guarded and restricted. Intellect poor. Mood depressed and anxious. Motor activity, psychomotor agitation. Attention span is poor. Orientation x2. Speech is pressured. Thought process, disorganized and illogical. Thought content, auditory hallucinations and paranoid delusions. Insight and judgment is poor. DIAGNOSIS: Paranoid schizophrenia with acute exacerbation. PLAN: To treat her with a medication regimen or continue treatment with psychotropic medications and stabilizing mood. Provided her with 20 minutes of cognitive behavioral therapy to help identify automatic negative thoughts, help to convert negative thoughts to more positive thoughts to reduce depression, anxiety, and suicidality. Chart reviewed. Discussed with staff. Seen and assessed in her room. Sofia Coronel M.D. : SARITA JOB#: [id number] CC:
--- NOTE | 2018-11-04 19:08 | NUR ---
HAND-OFF: Report given to SAMIR HERRERA.
--- NOTE | 2018-11-04 19:32 | NUR ---
NURSE NOTES: Received patient awake in bed, able to verbalize needs, no c/o pain at this time, no s/s of acute distress. IV site asymptomatic, dressing dry and intact, reinforced with kerlix. Patient cofused. Safety and fall precautions applied.
[2018-11-04 20:00] VITALS: BP 117/77
[2018-11-05] VITALS: BP 107/72
[2018-11-05 04:00] VITALS: BP 100/64
[2018-11-05 06:58] LABS: ALANINE AMINOTRANSFERASE 17 U/L (12-78); ALBUMIN 2.6 G/DL (3.4-5.0); ALBUMIN/GLOBULIN RATIO 0.5 (1.0-2.7); ALKALINE PHOSPHATASE 97 U/L (46-116); ANION GAP 8 mmol/L (5-15); ASPARTATE AMINO TRANSFERASE 12 U/L (15-37); BILIRUBIN,TOTAL 0.1 MG/DL (0.2-1.0); BLOOD UREA NITROGEN 22 mg/dL (7-18); CALCIUM 9.8 MG/DL (8.5-10.1); CARBON DIOXIDE 30 MMOL/L (21-32); CHLORIDE 101 MMOL/L (98-107); CREATININE 0.8 MG/DL (0.55-1.30); POTASSIUM 4.2 MMOL/L (3.5-5.1); SODIUM 139 MMOL/L (136-145)
[2018-11-05 07:07] LABS: BASOPHILS % (AUTO) 1.3 % (0.0-2.0); EOSINOPHILS % (AUTO) 2.1 % (0.0-3.0); HEMATOCRIT 32.4 % (37.0-47.0); HEMOGLOBIN 10.5 G/DL (12.0-16.0); LYMPHOCYTES % (AUTO) 25.4 % (20.0-45.0); MEAN CORPUSCULAR VOLUME 91 FL (80-99); MONOCYTES % (AUTO) 4.9 % (1.0-10.0); NEUTROPHILS % (AUTO) 66.4 % (45.0-75.0); PLATELET COUNT 468 K/UL (150-450); RED BLOOD COUNT 3.57 M/UL (4.20-5.40); WHITE BLOOD COUNT 12.4 K/UL (4.8-10.8)
--- NOTE | 2018-11-05 07:21 | NUR ---
HAND-OFF: Report given to SAMIR Navarro.
--- NOTE | 2018-11-05 07:51 | NUR ---
NURSE NOTES: Received patient from Juan DAWSON, patient resting in bed, tube feed running, no issues noted, call light within reach, bed is locked and in lowest position, will continue to monitor.
[2018-11-05 08:00] VITALS: BP 100/65
[2018-11-05] MEDS: Metoprolol Succinate XL 25mg tab ORAL SCH ×2 (08:47→09:36)
[2018-11-05] MEDS: Lisinopril 10mg tab GT SCH ×2 (08:47→09:35)
--- NOTE | 2018-11-05 08:54 | General Progress Note ---
Assessment/Plan Problem List: (1) Diabetes mellitus ICD Codes: E11.9 - Type 2 diabetes mellitus without complications SNOMED: 13125187 (2) Hypertension ICD Codes: I10 - Essential (primary) hypertension SNOMED: 56113309 (3) Alzheimer's dementia ICD Codes: G30.9 - Alzheimer's disease, unspecified; F02.80 - Dementia in other diseases classified elsewhere without behavioral disturbance SNOMED: 85626795 (4) PEG (percutaneous endoscopic gastrostomy) adjustment/replacement/removal ICD Codes: Z43.1 - Encounter for attention to gastrostomy SNOMED: 982343460, 977089198 (5) Normocytic anemia ICD Codes: D64.9 - Anemia, unspecified SNOMED: 696312291 Assessment/Plan speech eval appreciated GTF>>> tolerated GT care and flush stable H&H neg stool ob pending placement fu labs Subjective ROS Limited/Unobtainable: No Allergies: Coded Allergies: No Known Allergies (Unverified , 10/29/18) Objective Last 24 Hour Vital Signs Date Time Temp Pulse Resp B/P (MAP) Pulse Ox O2 Delivery O2 Flow Rate FiO2 11/05/18 08:47 96 100/65 11/05/18 08:47 100/65 11/05/18 08:46 96 100/65 11/05/18 07:38 96 16 Room Air 21 11/05/18 04:00 97.9 95 20 100/64 (76) 96 11/05/18 00:00 97.6 98 18 107/72 (84) 96 11/04/18 21:21 Room Air 11/04/18 20:00 98.5 97 20 117/77 (90) 94 11/04/18 19:51 97 18 Room Air 21 11/04/18 16:00 98.6 93 18 103/66 (78) 94 11/04/18 12:00 97.4 100 17 114/67 (83) 95 11/04/18 09:51 92 18 Room Air 21 11/04/18 09:00 Room Air 11/04/18 08:56 98 121/78 11/04/18 08:56 121/78 11/04/18 08:56 98 121/78 Intake and Output 11/04/18 11/05/18 18:59 06:59 Intake Total 720 ml 840 ml Balance 720 ml 840 ml Free Water 120 ml Tube Feeding 720 ml 720 ml # Voids 3 # Bowel Movements 1 Laboratory Tests 11/05/18 05:46: White Blood Count 12.4H, Red Blood Count 3.57L, Hemoglobin 10.5L, Hematocrit 32.4L, Mean Corpuscular Volume 91, Mean Corpuscular Hemoglobin 29.4, Mean Corpuscular Hemoglobin Concent 32.4, Red Cell Distribution Width 17.0H, Platelet Count 468H, Mean Platelet Volume 6.4L, Neutrophils (%) (Auto) 66.4, Lymphocytes (%) (Auto) 25.4, Monocytes (%) (Auto) 4.9, Eosinophils (%) (Auto) 2.1, Basophils (%) (Auto) 1.3, Sodium Level 139, Potassium Level 4.2, Chloride Level 101, Carbon Dioxide Level 30, Anion Gap 8, Blood Urea Nitrogen 22H, Creatinine 0.8, Estimat Glomerular Filtration Rate > 60, Glucose Level 170H, Calcium Level 9.8, Total Bilirubin 0.1L, Aspartate Amino Transf (AST/SGOT) 12L, Alanine Aminotransferase (ALT/SGPT) 17, Alkaline Phosphatase 97, Total Protein 8.1, Albumin 2.6L, Globulin 5.5, Albumin/Globulin Ratio 0.5L Height (Feet): 5 Height (Inches): 0.00 Weight (Pounds): 119 General Appearance: no apparent distress EENT: normal ENT inspection Neck: supple Cardiovascular: normal rate Respiratory/Chest: decreased breath sounds Abdomen: normal bowel sounds, non tender, soft Extremities: non-tender Brent Shepherd MD Nov 05, 2018 08:54
[2018-11-05] MEDS: Docusate 100mg/10ml Liq GT SCH ×2 (09:39→18:32)
[2018-11-05] MEDS: Memantine 5 MG TAB ORAL SCH ×2 (09:39→18:32)
[2018-11-05] MEDS: Heparin 5000 units/ml inj SUBQ SCH ×2 (09:40→20:14)
[2018-11-05 12:00] VITALS: BP 131/18
--- NOTE | 2018-11-05 13:36 | NUR ---
ER RNMEDIA SERVICES DIRECTOR RECEIVED A CALL FROM [facility] PT DECLINED AT THIS TIME. SPOKE WITH HIEN FROM [facility] AWARE OF PT BEING DECLINED AT [facility]. PLACED A CALL TO MAURILIO PELAYO'S BROTHER UNABLE TO LEAVE MESSAGE, MAILBOX IS FULL. WILL FOLLOW UP.
--- NOTE | 2018-11-05 14:15 | NUR ---
*-* NO INSURANCE INFORMATION TO SEND CLINICALS AND REVIEWS *-*
--- NOTE | 2018-11-05 14:25 | Pulmonology Progress Note ---
Assessment/Plan Problems: (1) Hypertension (2) Diabetes mellitus (3) Alzheimer's dementia (4) PEG (percutaneous endoscopic gastrostomy) adjustment/replacement/removal Assessment/Plan all reviewed tolerating feeding PEG aspiration precaution IV fluids symptomatic treatment check electrolytes dvt prophylaxis. Subjective ROS Limited/Unobtainable: No Constitutional: Reports: no symptoms HEENT: Repors: no symptoms Allergies: Coded Allergies: No Known Allergies (Unverified , 10/29/18) Objective Last 24 Hour Vital Signs Date Time Temp Pulse Resp B/P (MAP) Pulse Ox O2 Delivery O2 Flow Rate FiO2 11/05/18 12:00 97.9 100 14 131/18 (55) 96 11/05/18 09:36 96 100/65 11/05/18 09:35 100/65 11/05/18 09:35 96 100/65 11/05/18 08:47 96 100/65 11/05/18 08:47 100/65 11/05/18 08:46 96 100/65 11/05/18 08:15 Room Air 11/05/18 08:00 97.8 96 16 100/65 (77) 97 11/05/18 07:38 96 16 Room Air 21 11/05/18 04:00 97.9 95 20 100/64 (76) 96 11/05/18 00:00 97.6 98 18 107/72 (84) 96 11/04/18 21:21 Room Air 11/04/18 20:00 98.5 97 20 117/77 (90) 94 11/04/18 19:51 97 18 Room Air 21 11/04/18 16:00 98.6 93 18 103/66 (78) 94 Intake and Output 11/04/18 11/05/18 19:00 07:00 Intake Total 660 ml 840 ml Balance 660 ml 840 ml Free Water 120 ml Tube Feeding 660 ml 720 ml # Voids 3 # Bowel Movements 1 Objective General Appearance: combative, cachetic Lines, tubes and drains: peripheral HEENT: normocephalic, atraumatic Neck: non-tender, normal alignment Respiratory/Chest: chest wall non-tender, lungs clear Cardiovascular/Chest: normal rate Abdomen: normal bowel sounds, soft Genitourinary/Rectal: normal genital exam Extremities: normal range of motion Laboratory Tests 11/05/18 05:46: White Blood Count 12.4H, Red Blood Count 3.57L, Hemoglobin 10.5L, Hematocrit 32.4L, Mean Corpuscular Volume 91, Mean Corpuscular Hemoglobin 29.4, Mean Corpuscular Hemoglobin Concent 32.4, Red Cell Distribution Width 17.0H, Platelet Count 468H, Mean Platelet Volume 6.4L, Neutrophils (%) (Auto) 66.4, Lymphocytes (%) (Auto) 25.4, Monocytes (%) (Auto) 4.9, Eosinophils (%) (Auto) 2.1, Basophils (%) (Auto) 1.3, Sodium Level 139, Potassium Level 4.2, Chloride Level 101, Carbon Dioxide Level 30, Anion Gap 8, Blood Urea Nitrogen 22H, Creatinine 0.8, Estimat Glomerular Filtration Rate > 60, Glucose Level 170H, Calcium Level 9.8, Total Bilirubin 0.1L, Aspartate Amino Transf (AST/SGOT) 12L, Alanine Aminotransferase (ALT/SGPT) 17, Alkaline Phosphatase 97, Total Protein 8.1, Albumin 2.6L, Globulin 5.5, Albumin/Globulin Ratio 0.5L Current Medications Medications (Trade) Dose Ordered Sig/Bia Route PRN Reason Start Time Stop Time Status Last Admin Dose Admin Acetaminophen (Tylenol) 650 mg Q4H PRN ORAL fever 10/29/18 22:30 11/28/18 22:29 Amlodipine Besylate (Norvasc) 10 mg DAILY GT 10/30/18 09:00 11/29/18 08:59 11/04/18 08:56 Docusate Sodium (Colace) 100 mg BID GT 10/30/18 09:00 11/29/18 08:59 11/05/18 09:39 Heparin Sodium (Porcine) (Heparin 5000 units/ml) 5,000 units EVERY 12 HOURS SUBQ 10/30/18 09:00 11/29/18 08:59 11/05/18 09:40 Lisinopril (Zestril) 10 mg DAILY GT 10/30/18 09:00 11/29/18 08:59 11/04/18 08:56 Lorazepam (Ativan) 0.5 mg Q6H PRN ORAL For Anxiety 10/31/18 05:15 11/07/18 05:14 Memantine (Namenda) 5 mg BID ORAL 10/31/18 09:00 4/21/19 08:59 11/05/18 09:39 Metoprolol Succinate (Toprol XL) 75 mg DAILY ORAL 10/30/18 09:00 11/29/18 08:59 11/04/18 08:56 Morphine Sulfate (Morphine Sulfate) 2 mg Q4H PRN IVP Moderate Pain (Pain Scale 4-6) 10/29/18 22:30 11/05/18 22:29 Ondansetron HCl (Zofran) 4 mg Q6H PRN IVP Nausea & Vomiting 10/29/18 22:30 11/28/18 22:29 Polyethylene Glycol (Miralax) 17 gm DAILYPRN PRN ORAL Constipation 10/29/18 22:30 11/28/18 22:29 Temazepam (Restoril) 15 mg HSPRN PRN ORAL Insomnia 10/29/18 22:30 11/05/18 22:29 Roberto Echevarria MD Nov 05, 2018 14:25
--- NOTE | 2018-11-05 14:48 | NUR ---
*-* INSURANCE *-* ALL CLINICALS,REVIEWS HAVEN BEEN FAXED TO: TINA COVINGTON:HIEN F:[phone]
--- NOTE | 2018-11-05 15:09 | Infectious Diseases Prog Note ---
Assessment/Plan Assessment/Plan Assessment: GT dislodgment -KUB: Gastrostomy tube within the stomach. No leak identified. Pyuria- assymptomatic- however will treat in the setting of leukocytosis -u/a wbc tnct, nit neg, leuk +3; ucx >100k E. Coli ESBL (S Zosyn, ertapenem, Nitro, bactrim) Afebrile Mild leukocytosis HTN Dementia dysphagia s/p GT FTT SNF resident Plan: -Start PO Macrobid for probable UTI given leukocytosis -10/30 SP IV Vancomycin and Cefepime #1 -10/29 SP Ceftriaxone x1 -f.u cx -Monitor CBC/CMP, temperatures -GT care -GI f/u -wound care per hospital protocol -Aspiration precautions Subjective Allergies: Coded Allergies: No Known Allergies (Unverified , 10/29/18) Subjective afebrile mild leukocytosis off abx bcx neg Objective Vital Signs Last 24 Hour Vital Signs Date Time Temp Pulse Resp B/P (MAP) Pulse Ox O2 Delivery O2 Flow Rate FiO2 11/05/18 12:00 97.9 100 14 131/18 (55) 96 11/05/18 09:36 96 100/65 11/05/18 09:35 100/65 11/05/18 09:35 96 100/65 11/05/18 08:47 96 100/65 11/05/18 08:47 100/65 11/05/18 08:46 96 100/65 11/05/18 08:15 Room Air 11/05/18 08:00 97.8 96 16 100/65 (77) 97 11/05/18 07:38 96 16 Room Air 21 11/05/18 04:00 97.9 95 20 100/64 (76) 96 11/05/18 00:00 97.6 98 18 107/72 (84) 96 11/04/18 21:21 Room Air 11/04/18 20:00 98.5 97 20 117/77 (90) 94 11/04/18 19:51 97 18 Room Air 21 11/04/18 16:00 98.6 93 18 103/66 (78) 94 Height (Feet): 5 Height (Inches): 0.00 Weight (Pounds): 119 Objective General Appearance: cachetic Lines, tubes and drains: peripheral HEENT: normocephalic, atraumatic Neck: non-tender, normal alignment Respiratory/Chest: chest wall non-tender, lungs clear Breasts: no masses Cardiovascular/Chest: normal rate, no JVD Abdomen: normal bowel sounds, hyperactive bowel sounds Genitourinary/Rectal: normal genital exam, normal prostate exam Laboratory Tests Test 11/05/18 05:46 White Blood Count 12.4 K/UL (4.8-10.8) H Red Blood Count 3.57 M/UL (4.20-5.40) L Hemoglobin 10.5 G/DL (12.0-16.0) L Hematocrit 32.4 % (37.0-47.0) L Mean Corpuscular Volume 91 FL (80-99) Mean Corpuscular Hemoglobin 29.4 PG (27.0-31.0) Mean Corpuscular Hemoglobin Concent 32.4 G/DL (32.0-36.0) Red Cell Distribution Width 17.0 % (11.6-14.8) H Platelet Count 468 K/UL (150-450) H Mean Platelet Volume 6.4 FL (6.5-10.1) L Neutrophils (%) (Auto) 66.4 % (45.0-75.0) Lymphocytes (%) (Auto) 25.4 % (20.0-45.0) Monocytes (%) (Auto) 4.9 % (1.0-10.0) Eosinophils (%) (Auto) 2.1 % (0.0-3.0) Basophils (%) (Auto) 1.3 % (0.0-2.0) Sodium Level 139 MMOL/L (136-145) Potassium Level 4.2 MMOL/L (3.5-5.1) Chloride Level 101 MMOL/L (98-107) Carbon Dioxide Level 30 MMOL/L (21-32) Anion Gap 8 mmol/L (5-15) Blood Urea Nitrogen 22 mg/dL (7-18) H Creatinine 0.8 MG/DL (0.55-1.30) Estimat Glomerular Filtration Rate > 60 mL/min (>60) Glucose Level 170 MG/DL (74-106) H Calcium Level 9.8 MG/DL (8.5-10.1) Total Bilirubin 0.1 MG/DL (0.2-1.0) L Aspartate Amino Transf (AST/SGOT) 12 U/L (15-37) L Alanine Aminotransferase (ALT/SGPT) 17 U/L (12-78) Alkaline Phosphatase 97 U/L (46-116) Total Protein 8.1 G/DL (6.4-8.2) Albumin 2.6 G/DL (3.4-5.0) L Globulin 5.5 g/dL Albumin/Globulin Ratio 0.5 (1.0-2.7) L Current Medications Medications (Trade) Dose Ordered Sig/Bia Route PRN Reason Start Time Stop Time Status Last Admin Dose Admin Acetaminophen (Tylenol) 650 mg Q4H PRN ORAL fever 10/29/18 22:30 11/28/18 22:29 Amlodipine Besylate (Norvasc) 10 mg DAILY GT 10/30/18 09:00 11/29/18 08:59 11/04/18 08:56 Docusate Sodium (Colace) 100 mg BID GT 10/30/18 09:00 11/29/18 08:59 11/05/18 09:39 Heparin Sodium (Porcine) (Heparin 5000 units/ml) 5,000 units EVERY 12 HOURS SUBQ 10/30/18 09:00 11/29/18 08:59 11/05/18 09:40 Lisinopril (Zestril) 10 mg DAILY GT 10/30/18 09:00 11/29/18 08:59 11/04/18 08:56 Lorazepam (Ativan) 0.5 mg Q6H PRN ORAL For Anxiety 10/31/18 05:15 11/07/18 05:14 Memantine (Namenda) 5 mg BID ORAL 10/31/18 09:00 11/30/18 08:59 11/05/18 09:39 Metoprolol Succinate (Toprol XL) 75 mg DAILY ORAL 10/30/18 09:00 11/29/18 08:59 11/04/18 08:56 Morphine Sulfate (Morphine Sulfate) 2 mg Q4H PRN IVP Moderate Pain (Pain Scale 4-6) 10/29/18 22:30 11/05/18 22:29 Ondansetron HCl (Zofran) 4 mg Q6H PRN IVP Nausea & Vomiting 10/29/18 22:30 11/28/18 22:29 Polyethylene Glycol (Miralax) 17 gm DAILYPRN PRN ORAL Constipation 10/29/18 22:30 11/28/18 22:29 Temazepam (Restoril) 15 mg HSPRN PRN ORAL Insomnia 10/29/18 22:30 11/05/18 22:29 Raissa Taylor M.D. Nov 05, 2018 15:09
--- NOTE | 2018-11-05 15:15 | NUR ---
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 PYELONEPHRITIS VS: BP 100/65, P 100, T 97.9, RR 14, SpO2 96 WBC 12.4, RBC 3.57, Hgb 10.5, Hct 32.4, BUN 22, TOTAL BILIRUBIN 0.1, AST 12 IS: MACROBID 100mg MEMANTINE 5mg HEPARIN SUBQ MED/SURG STATUS AWAITING PLACEMENT
[2018-11-05 16:00] VITALS: BP 127/81
--- NOTE | 2018-11-05 17:00 | Progress Note ---
DATE: 11/05/2018 SUBJECTIVE: This is a 68-year-old female patient with failure to thrive. The patient continues to have altered mental status, confusion, decline in cognition below baseline that is why her attending has requested daily psychiatric consultation at this time. She continues to have some confusion, disorganized thought process, mood lability, decline in cognition below her baseline. MENTAL STATUS EXAMINATION: This is a 68-year-old female. Appearance is disheveled. Attitude, irritable and agitated. Affect, guarded and restricted. Intellect poor. Mood depressed and anxious. Motor activity, psychomotor agitation. Attention span is poor. Orientation x2. Speech is low volume and slurred. Thought process, disorganized and illogical. Insight and judgment is poor. DIAGNOSIS: Major depressive disorder, mild, recurrent with psychotic features. PLAN: Treat her with Namenda 5 mg p.o. a day to prevent further decline in cognition. Provided her with 20 minutes of insight oriented psychotherapy to help her identify her medical and psychiatric conditions so that she have better impulse control in the unit. A 20 minutes of insight-oriented psychotherapy. Sofia Coronel M.D. DR: Eileen JOB#: [id number] CC:
--- NOTE | 2018-11-05 19:26 | NUR ---
NURSE NOTES: Received patient awake in bed, able to verbalize needs, no c/o pain at this time, no s/s of acute distress. IV site asymptomatic, dressing dry and intact. Safety and fall precautions applied. Purewick and g-tube noted.
--- NOTE | 2018-11-05 19:33 | NUR ---
NURSE NOTES: HAND-OFF: Report given to Raffi DAWSON
--- NOTE | 2018-11-05 19:58 | General Progress Note ---
Assessment/Plan Assessment/Plan Assessment/Plan # Failure to thrive - decreased bmi and low protein, is peg tube dependent --> cea is 3.3, spep is negative --> upep is also negative --> will also obtain q3d caloric counts --> started mirtazapine as appetite stimulant --> rate feeding per nutrition recs # Anemia of chronic disease due to underlying chronic medical issues, multifactorial --> Anemia workup has been reviewed and ferritin is >1500 --> No evidence of hemolysis is noted, peripheral smear has been reviewed. --> Hgb goal >7. Transfuse prn. --> Epogen or iron at this time is not particularly indicated --> Medications have been reviewed --> evaluate with Gi team prn # Hyperprotenemia with decreased albumin -- this is a dissociation that is abnormal --> spep is negative, upep is negative --> if above results in a m-spike or abnormally enhanced protein, will need to send off immunofixation serum/urine --> in the case of a m-spike or abnormally enhanced protein, will obtain a bone marrow biopsy # Iron overload -- ferritin is 1553, could be related to shavonne transfusion --> may need chelation therapy # Hypertension - sbp goal <140 --> appreciate cards recs # Diabetes mellitus --> iss as needed and accuchecks qac and qhs # Alzheimer's dementia # PEG (percutaneous endoscopic gastrostomy) adjustment/replacement/removal --> appreciate gi recs # Placement/dispo to snf The timing of this note does not necessarily reflect the time of the patient was seen. Greatly appreciate consultation! Subjective Constitutional: Denies: no symptoms, chills, diaphoresis, fever, malaise, weakness, other HEENT: Denies: no symptoms, eye pain, blurred vision, tearing, double vision, ear pain, ear discharge, nose pain, nose congestion, throat pain, throat swelling, mouth pain, mouth swelling, other Respiratory: Denies: no symptoms, cough, orthopnea, shortness of breath, SOB with excertion, SOB at rest, sputum, stridor, wheezing, other Gastrointestinal/Abdominal: Denies: no symptoms, abdomen distended, abdominal pain, black stools, tarry stools, blood in stool, constipated, diarrhea, difficulty swallowing, nausea, poor appetite, poor fluid intake, rectal bleeding , vomiting, other Genitourinary: Denies: no symptoms, burning, discharge, frequency, flank pain, hematuria, incontinence, pain, urgency, other Neurologic/Psychiatric: Denies: no symptoms, anxiety, depressed, emotional problems, headache, numbness, paresthesia, pre-existing deficit, seizure, tingling, tremors, weakness, other Allergies: Coded Allergies: No Known Allergies (Unverified , 10/29/18) Subjective 10/31: no events, peg is in, cbc reviewed, she is alert 11/01: cleared for dc by id and psych 11/03: pending placement, cbc was reviewed 11/04: still is pending placement, gt feeds working well, no f/c 11/05: on abx, gtube feeds being tolerated, no f/c Objective Last 24 Hour Vital Signs Date Time Temp Pulse Resp B/P (MAP) Pulse Ox O2 Delivery O2 Flow Rate FiO2 11/05/18 16:00 98.6 100 16 127/81 (96) 97 11/05/18 12:00 97.9 100 14 131/18 (55) 96 11/05/18 09:36 96 100/65 11/05/18 09:35 100/65 11/05/18 09:35 96 100/65 11/05/18 08:47 96 100/65 11/05/18 08:47 100/65 11/05/18 08:46 96 100/65 11/05/18 08:15 Room Air 11/05/18 08:00 97.8 96 16 100/65 (77) 97 11/05/18 07:38 96 16 Room Air 21 11/05/18 04:00 97.9 95 20 100/64 (76) 96 11/05/18 00:00 97.6 98 18 107/72 (84) 96 11/04/18 21:21 Room Air 11/04/18 20:00 98.5 97 20 117/77 (90) 94 Intake and Output 11/04/18 11/05/18 19:00 07:00 Intake Total 660 ml 1060 ml Balance 660 ml 1060 ml Free Water 280 ml Tube Feeding 660 ml 780 ml # Voids 3 # Bowel Movements 1 Laboratory Tests 11/05/18 05:46: White Blood Count 12.4H, Red Blood Count 3.57L, Hemoglobin 10.5L, Hematocrit 32.4L, Mean Corpuscular Volume 91, Mean Corpuscular Hemoglobin 29.4, Mean Corpuscular Hemoglobin Concent 32.4, Red Cell Distribution Width 17.0H, Platelet Count 468H, Mean Platelet Volume 6.4L, Neutrophils (%) (Auto) 66.4, Lymphocytes (%) (Auto) 25.4, Monocytes (%) (Auto) 4.9, Eosinophils (%) (Auto) 2.1, Basophils (%) (Auto) 1.3, Sodium Level 139, Potassium Level 4.2, Chloride Level 101, Carbon Dioxide Level 30, Anion Gap 8, Blood Urea Nitrogen 22H, Creatinine 0.8, Estimat Glomerular Filtration Rate > 60, Glucose Level 170H, Calcium Level 9.8, Total Bilirubin 0.1L, Aspartate Amino Transf (AST/SGOT) 12L, Alanine Aminotransferase (ALT/SGPT) 17, Alkaline Phosphatase 97, Total Protein 8.1, Albumin 2.6L, Globulin 5.5, Albumin/Globulin Ratio 0.5L Height (Feet): 5 Height (Inches): 0.00 Weight (Pounds): 119 Objective Vitals: reviewed General Appearance: NAD HEENT: normocephalic, atraumatic Neck: non-tender, normal alignment Respiratory/Chest: normal breath sounds bilaterally Cardiovascular/Chest: normal peripheral pulses, normal rate Abdomen: normal bowel sounds, soft, nontender Extremities: normal range of motion Brennan Gonzales MD Nov 05, 2018 19:58
[2018-11-05 20:00] VITALS: BP 123/74
--- NOTE | 2018-11-05 21:58 | General Progress Note ---
Assessment/Plan Problem List: (1) Anemia ICD Codes: D64.9 - Anemia, unspecified SNOMED: 189453322 (2) Pyelonephritis ICD Codes: N12 - Tubulo-interstitial nephritis, not specified as acute or chronic SNOMED: 05116816 (3) Normocytic anemia ICD Codes: D64.9 - Anemia, unspecified SNOMED: 761230569 (4) Hypertension ICD Codes: I10 - Essential (primary) hypertension SNOMED: 12395090 (5) Diabetes mellitus ICD Codes: E11.9 - Type 2 diabetes mellitus without complications SNOMED: 82188272 (6) Alzheimer's dementia ICD Codes: G30.9 - Alzheimer's disease, unspecified; F02.80 - Dementia in other diseases classified elsewhere without behavioral disturbance SNOMED: 06799976 Status: progressing - llllllllllllllllllllllllllllllllllllllllllll Assessment/Plan pyelonephritis improving uti improving htn check h/h obs niddm reviewed chart and labs and meds Subjective ROS Limited/Unobtainable: Yes Allergies: Coded Allergies: No Known Allergies (Unverified , 10/29/18) Objective Last 24 Hour Vital Signs Date Time Temp Pulse Resp B/P (MAP) Pulse Ox O2 Delivery O2 Flow Rate FiO2 11/05/18 20:00 99.1 105 16 123/74 (90) 98 11/05/18 16:00 98.6 100 16 127/81 (96) 97 11/05/18 12:00 97.9 100 14 131/18 (55) 96 11/05/18 09:36 96 100/65 11/05/18 09:35 100/65 11/05/18 09:35 96 100/65 11/05/18 08:47 96 100/65 11/05/18 08:47 100/65 11/05/18 08:46 96 100/65 11/05/18 08:15 Room Air 11/05/18 08:00 97.8 96 16 100/65 (77) 97 11/05/18 07:38 96 16 Room Air 21 11/05/18 04:00 97.9 95 20 100/64 (76) 96 11/05/18 00:00 97.6 98 18 107/72 (84) 96 Intake and Output 11/04/18 11/05/18 19:00 07:00 Intake Total 660 ml 1060 ml Balance 660 ml 1060 ml Free Water 280 ml Tube Feeding 660 ml 780 ml # Voids 3 # Bowel Movements 1 Laboratory Tests 11/05/18 05:46: White Blood Count 12.4H, Red Blood Count 3.57L, Hemoglobin 10.5L, Hematocrit 32.4L, Mean Corpuscular Volume 91, Mean Corpuscular Hemoglobin 29.4, Mean Corpuscular Hemoglobin Concent 32.4, Red Cell Distribution Width 17.0H, Platelet Count 468H, Mean Platelet Volume 6.4L, Neutrophils (%) (Auto) 66.4, Lymphocytes (%) (Auto) 25.4, Monocytes (%) (Auto) 4.9, Eosinophils (%) (Auto) 2.1, Basophils (%) (Auto) 1.3, Sodium Level 139, Potassium Level 4.2, Chloride Level 101, Carbon Dioxide Level 30, Anion Gap 8, Blood Urea Nitrogen 22H, Creatinine 0.8, Estimat Glomerular Filtration Rate > 60, Glucose Level 170H, Calcium Level 9.8, Total Bilirubin 0.1L, Aspartate Amino Transf (AST/SGOT) 12L, Alanine Aminotransferase (ALT/SGPT) 17, Alkaline Phosphatase 97, Total Protein 8.1, Albumin 2.6L, Globulin 5.5, Albumin/Globulin Ratio 0.5L Height (Feet): 5 Height (Inches): 0.00 Weight (Pounds): 119 Neck: supple Cardiovascular: normal rate Respiratory/Chest: lungs clear Abdomen: non tender Nora Alexander MD Nov 05, 2018 21:58
[2018-11-06] VITALS: BP 125/70
[2018-11-06 04:00] VITALS: BP 122/72
--- NOTE | 2018-11-06 07:12 | NUR ---
HAND-OFF: Report given to SAMIR Navarro.
--- NOTE | 2018-11-06 07:23 | NUR ---
Received patient from Juan RN, patient resting in bed, no distress noted, bed is locked and in lowest position, call light within reach, will continue to monitor.
[2018-11-06 08:00] VITALS: BP 130/87
[2018-11-06] MEDS: Memantine 5 MG TAB ORAL SCH ×2 (09:03→17:27)
[2018-11-06] MEDS: Lisinopril 10mg tab GT SCH (09:03)
[2018-11-06] MEDS: Docusate 100mg/10ml Liq GT SCH ×2 (09:03→17:27)
[2018-11-06] MEDS: Metoprolol Succinate XL 25mg tab ORAL SCH (09:03)
[2018-11-06] MEDS: Heparin 5000 units/ml inj SUBQ SCH ×2 (09:04→20:01)
--- NOTE | 2018-11-06 09:57 | General Progress Note ---
Assessment/Plan Problem List: (1) Anemia ICD Codes: D64.9 - Anemia, unspecified SNOMED: 462842790 (2) Pyelonephritis ICD Codes: N12 - Tubulo-interstitial nephritis, not specified as acute or chronic SNOMED: 87523355 (3) Normocytic anemia ICD Codes: D64.9 - Anemia, unspecified SNOMED: 435474707 (4) Hypertension ICD Codes: I10 - Essential (primary) hypertension SNOMED: 87885207 (5) Diabetes mellitus ICD Codes: E11.9 - Type 2 diabetes mellitus without complications SNOMED: 48296659 (6) Alzheimer's dementia ICD Codes: G30.9 - Alzheimer's disease, unspecified; F02.80 - Dementia in other diseases classified elsewhere without behavioral disturbance SNOMED: 90021481 Status: progressing Assessment/Plan pyelonephritis improving uti improving htn bp is controlled afebrile check labs and meds Subjective ROS Limited/Unobtainable: Yes Allergies: Coded Allergies: No Known Allergies (Unverified , 10/29/18) Objective Last 24 Hour Vital Signs Date Time Temp Pulse Resp B/P (MAP) Pulse Ox O2 Delivery O2 Flow Rate FiO2 11/06/18 09:03 102 130/87 11/06/18 09:03 130/87 11/06/18 09:02 102 130/87 11/06/18 04:00 98.7 110 18 122/72 (89) 97 11/06/18 00:00 97.4 108 16 125/70 (88) 98 11/05/18 21:56 Room Air 11/05/18 21:08 89 16 Room Air 21 11/05/18 20:00 99.1 105 16 123/74 (90) 98 11/05/18 16:00 98.6 100 16 127/81 (96) 97 11/05/18 12:00 97.9 100 14 131/18 (55) 96 Intake and Output 11/05/18 11/06/18 18:59 06:59 Intake Total 800 ml 640 ml Balance 800 ml 640 ml Free Water 320 ml 100 ml Tube Feeding 480 ml 540 ml Height (Feet): 5 Height (Inches): 0.00 Weight (Pounds): 119 Cardiovascular: normal rate Abdomen: soft Nora Alexander MD Nov 06, 2018 09:57
--- NOTE | 2018-11-06 10:58 | Infectious Diseases Prog Note ---
Assessment/Plan Assessment/Plan Assessment: GT dislodgment -KUB: Gastrostomy tube within the stomach. No leak identified. Pyuria- assymptomatic- however will treat in the setting of leukocytosis -u/a wbc tnct, nit neg, leuk +3; ucx >100k E. Coli ESBL (S Zosyn, ertapenem, Nitro, bactrim) Afebrile Mild leukocytosis HTN Dementia dysphagia s/p GT FTT SNF resident Plan: -Cont PO Macrobid #2/ for probable UTI given leukocytosis -ok to discharge on above regimen -10/30 SP IV Vancomycin and Cefepime #1 -10/29 SP Ceftriaxone x1 -f.u cx -Monitor CBC/CMP, temperatures -GT care -GI f/u -wound care per hospital protocol -Aspiration precautions Subjective Allergies: Coded Allergies: No Known Allergies (Unverified , 10/29/18) Subjective afebrile mild leukocytosis off abx bcx neg Objective Vital Signs Last 24 Hour Vital Signs Date Time Temp Pulse Resp B/P (MAP) Pulse Ox O2 Delivery O2 Flow Rate FiO2 11/06/18 09:03 102 130/87 11/06/18 09:03 130/87 11/06/18 09:02 102 130/87 11/06/18 08:00 98.7 102 17 130/87 (101) 98 11/06/18 04:00 98.7 110 18 122/72 (89) 97 11/06/18 00:00 97.4 108 16 125/70 (88) 98 11/05/18 21:56 Room Air 11/05/18 21:08 89 16 Room Air 21 11/05/18 20:00 99.1 105 16 123/74 (90) 98 11/05/18 16:00 98.6 100 16 127/81 (96) 97 11/05/18 12:00 97.9 100 14 131/18 (55) 96 Height (Feet): 5 Height (Inches): 0.00 Weight (Pounds): 119 Objective General Appearance: cachetic Lines, tubes and drains: peripheral HEENT: normocephalic, atraumatic Neck: non-tender, normal alignment Respiratory/Chest: chest wall non-tender, lungs clear Breasts: no masses Cardiovascular/Chest: normal rate, no JVD Abdomen: normal bowel sounds, hyperactive bowel sounds Genitourinary/Rectal: normal genital exam, normal prostate exam Current Medications Medications (Trade) Dose Ordered Sig/Bia Route PRN Reason Start Time Stop Time Status Last Admin Dose Admin Acetaminophen (Tylenol) 650 mg Q4H PRN ORAL fever 10/29/18 22:30 11/28/18 22:29 Amlodipine Besylate (Norvasc) 10 mg DAILY GT 10/30/18 09:00 11/29/18 08:59 11/06/18 09:02 Docusate Sodium (Colace) 100 mg BID GT 10/30/18 09:00 11/29/18 08:59 11/06/18 09:03 Heparin Sodium (Porcine) (Heparin 5000 units/ml) 5,000 units EVERY 12 HOURS SUBQ 10/30/18 09:00 11/29/18 08:59 11/06/18 09:04 Lisinopril (Zestril) 10 mg DAILY GT 10/30/18 09:00 11/29/18 08:59 11/06/18 09:03 Lorazepam (Ativan) 0.5 mg Q6H PRN ORAL For Anxiety 10/31/18 05:15 11/07/18 05:14 Memantine (Namenda) 5 mg BID ORAL 10/31/18 09:00 11/30/18 08:59 11/06/18 09:03 Metoprolol Succinate (Toprol XL) 75 mg DAILY ORAL 10/30/18 09:00 11/29/18 08:59 11/06/18 09:03 Nitrofurantoin (Macrobid) 100 mg EVERY 12 HOURS ORAL 11/05/18 15:11 12/05/18 15:10 11/06/18 09:03 Ondansetron HCl (Zofran) 4 mg Q6H PRN IVP Nausea & Vomiting 10/29/18 22:30 11/28/18 22:29 Polyethylene Glycol (Miralax) 17 gm DAILYPRN PRN ORAL Constipation 10/29/18 22:30 11/28/18 22:29 Raissa Taylor M.D. Nov 06, 2018 10:58
[2018-11-06 12:00] VITALS: BP 108/67
--- NOTE | 2018-11-06 12:23 | General Progress Note ---
Assessment/Plan Problem List: (1) Diabetes mellitus ICD Codes: E11.9 - Type 2 diabetes mellitus without complications SNOMED: 65575794 (2) Hypertension ICD Codes: I10 - Essential (primary) hypertension SNOMED: 64084551 (3) Alzheimer's dementia ICD Codes: G30.9 - Alzheimer's disease, unspecified; F02.80 - Dementia in other diseases classified elsewhere without behavioral disturbance SNOMED: 84518239 (4) PEG (percutaneous endoscopic gastrostomy) adjustment/replacement/removal ICD Codes: Z43.1 - Encounter for attention to gastrostomy SNOMED: 254919082, 188078180 (5) Normocytic anemia ICD Codes: D64.9 - Anemia, unspecified SNOMED: 984991547 Assessment/Plan speech eval appreciated GTF>>> tolerated GT care and flush stable H&H neg stool ob pending placement fu labs Subjective ROS Limited/Unobtainable: No Allergies: Coded Allergies: No Known Allergies (Unverified , 10/29/18) Objective Last 24 Hour Vital Signs Date Time Temp Pulse Resp B/P (MAP) Pulse Ox O2 Delivery O2 Flow Rate FiO2 11/06/18 09:03 102 130/87 11/06/18 09:03 130/87 11/06/18 09:02 102 130/87 11/06/18 09:00 Room Air 11/06/18 08:00 98.7 102 17 130/87 (101) 98 11/06/18 04:00 98.7 110 18 122/72 (89) 97 11/06/18 00:00 97.4 108 16 125/70 (88) 98 11/05/18 21:56 Room Air 11/05/18 21:08 89 16 Room Air 21 11/05/18 20:00 99.1 105 16 123/74 (90) 98 11/05/18 16:00 98.6 100 16 127/81 (96) 97 Intake and Output 11/05/18 11/06/18 18:59 06:59 Intake Total 800 ml 640 ml Balance 800 ml 640 ml Free Water 320 ml 100 ml Tube Feeding 480 ml 540 ml Height (Feet): 5 Height (Inches): 0.00 Weight (Pounds): 119 General Appearance: no apparent distress EENT: normal ENT inspection Neck: supple Cardiovascular: normal rate Respiratory/Chest: decreased breath sounds Abdomen: normal bowel sounds, non tender, soft Extremities: non-tender Brent Shepherd MD Nov 06, 2018 12:23
[2018-11-06] MEDS ORDERED: ACETAMINOPHEN325 M1 ORAL (12:36)
[2018-11-06] MEDS ORDERED: HEPARIN SO5000 UNIT2 SUBQ (12:37)
--- NOTE | 2018-11-06 12:38 | Pulmonology Progress Note ---
Assessment/Plan Problems: (1) Hypertension (2) Diabetes mellitus (3) Alzheimer's dementia (4) PEG (percutaneous endoscopic gastrostomy) adjustment/replacement/removal Assessment/Plan no new complains all reviewed tolerating feeding PEG aspiration precaution IV fluids symptomatic treatment check electrolytes dvt prophylaxis. Subjective ROS Limited/Unobtainable: No Constitutional: Reports: no symptoms HEENT: Repors: no symptoms Respiratory: Reports: no symptoms Allergies: Coded Allergies: No Known Allergies (Unverified , 10/29/18) Objective Last 24 Hour Vital Signs Date Time Temp Pulse Resp B/P (MAP) Pulse Ox O2 Delivery O2 Flow Rate FiO2 11/06/18 09:03 102 130/87 11/06/18 09:03 130/87 11/06/18 09:02 102 130/87 11/06/18 09:00 Room Air 11/06/18 08:00 98.7 102 17 130/87 (101) 98 11/06/18 04:00 98.7 110 18 122/72 (89) 97 11/06/18 00:00 97.4 108 16 125/70 (88) 98 11/05/18 21:56 Room Air 11/05/18 21:08 89 16 Room Air 21 11/05/18 20:00 99.1 105 16 123/74 (90) 98 11/05/18 16:00 98.6 100 16 127/81 (96) 97 Intake and Output 11/05/18 11/06/18 18:59 06:59 Intake Total 800 ml 640 ml Balance 800 ml 640 ml Free Water 320 ml 100 ml Tube Feeding 480 ml 540 ml Objective General Appearance: combative, cachetic Lines, tubes and drains: peripheral HEENT: normocephalic, atraumatic Neck: non-tender, normal alignment Respiratory/Chest: chest wall non-tender, lungs clear Cardiovascular/Chest: normal rate Abdomen: normal bowel sounds, soft Genitourinary/Rectal: normal genital exam Extremities: normal range of motion Current Medications Medications (Trade) Dose Ordered Sig/Bia Route PRN Reason Start Time Stop Time Status Last Admin Dose Admin Acetaminophen (Tylenol) 650 mg Q4H PRN ORAL fever 10/29/18 22:30 11/28/18 22:29 Amlodipine Besylate (Norvasc) 10 mg DAILY GT 10/30/18 09:00 11/29/18 08:59 11/06/18 09:02 Docusate Sodium (Colace) 100 mg BID GT 10/30/18 09:00 11/29/18 08:59 11/06/18 09:03 Heparin Sodium (Porcine) (Heparin 5000 units/ml) 5,000 units EVERY 12 HOURS SUBQ 10/30/18 09:00 11/29/18 08:59 11/06/18 09:04 Lisinopril (Zestril) 10 mg DAILY GT 10/30/18 09:00 11/29/18 08:59 11/06/18 09:03 Lorazepam (Ativan) 0.5 mg Q6H PRN ORAL For Anxiety 10/31/18 05:15 11/07/18 05:14 Memantine (Namenda) 5 mg BID ORAL 10/31/18 09:00 11/30/18 08:59 11/06/18 09:03 Metoprolol Succinate (Toprol XL) 75 mg DAILY ORAL 10/30/18 09:00 11/29/18 08:59 11/06/18 09:03 Nitrofurantoin (Macrobid) 100 mg EVERY 12 HOURS ORAL 11/05/18 15:11 12/05/18 15:10 11/06/18 09:03 Ondansetron HCl (Zofran) 4 mg Q6H PRN IVP Nausea & Vomiting 10/29/18 22:30 11/28/18 22:29 Polyethylene Glycol (Miralax) 17 gm DAILYPRN PRN ORAL Constipation 10/29/18 22:30 11/28/18 22:29 Roberto Echevarria MD Nov 06, 2018 12:38
[2018-11-06] MEDS ORDERED: LORAZEPAM0.5 MG ORAL (12:41)
[2018-11-06] MEDS ORDERED: NITROFURANTOIN100 M2 ORAL (12:43)
[2018-11-06] MEDS ORDERED: ONDANSETRON4 MG/2 M2 IVP (12:44)
[2018-11-06] MEDS ORDERED: MIRALAX17 G2 ORAL (12:45)
--- NOTE | 2018-11-06 13:38 | NUR ---
RD ASSESSMENT & RECOMMENDATIONS SEE CARE ACTIVITY FOR COMPLETE ASSESSMENT DAILY ESTIMATED NEEDS: Needs based on cardiac, DM/ 40.3kg 25-30 kcals/kg 2907-9366 total kcals 1-1.2 g protein/kg 40-48 g total protein 25-30 mL/kg 1175-3787 total fluid mLs NUTRITION DIAGNOSIS: * Swallowing difficulty R/T dysphagia as evidenced by pt is PEG dep. * Altered nutrition related lab values R/T h/o DM as evidenced by elev BGs CURRENT DIET:NPO CURRENT TF:Glucerna 1.2 @ 60ml/hr x 20 hrs PO DIET RECOMMENDATIONS: oral grat per [employer] ENTERAL NUTRITION RECOMMENDATIONS: Glucerna 1.2 @ 50ml/hr x 20 hrs to provide 1000ML, 1200kcal, 60g prot, 805ml free water * Rec to LOWER goal rate to 50ml/hr x 20 hrs -> meets 100% est kcal/prot needs. * HOB over 30 degrees/ water flush per MD. ADDITIONAL RECOMMENDATIONS: * Calibrated bedscale wt * Per SNF: HT=4'7", most recent wt=86lbs/ bedscale wt on 10/30=88lbs * Consider SSI -> on accucheck without coverage at this time POC glu elev (170 161 143 167 170) * Monitor lytes, replete as needed * SKin integrity: Elliott 1pkt BID, rec Wound eval (sacral wound photo) .
--- NOTE | 2018-11-06 13:53 | NUR ---
*-* INSURANCE *-* ALL CLINICALS,REVIEWS HAVEN BEEN FAXED TO: TINA COVINGTON:HIEN F:[phone]
[2018-11-06 16:00] VITALS: BP 117/73
--- NOTE | 2018-11-06 16:17 | General Progress Note ---
Assessment/Plan Assessment/Plan Assessment/Plan # Failure to thrive - decreased bmi and low protein, is peg tube dependent --> cea is 3.3, spep is negative --> upep is also negative --> will also obtain q3d caloric counts --> started mirtazapine as appetite stimulant --> rate feeding per nutrition recs --> per gi team # Anemia of chronic disease due to underlying chronic medical issues, multifactorial --> Anemia workup has been reviewed and ferritin is >1500 --> No evidence of hemolysis is noted, peripheral smear has been reviewed. --> Hgb goal >7. Transfuse prn. --> Epogen or iron at this time is not particularly indicated --> Medications have been reviewed --> evaluate with Gi team prn # Hyperproteinemia with decreased albumin -- this is a dissociation that is abnormal --> spep is negative, upep is negative --> if above results in a m-spike or abnormally enhanced protein, will need to send off immunofixation serum/urine --> in the case of a m-spike or abnormally enhanced protein, will obtain a bone marrow biopsy # Iron overload -- ferritin is 1553, could be related to shavonne transfusion --> may need chelation therapy # Hypertension - sbp goal <140 --> appreciate cards recs # Diabetes mellitus --> iss as needed and accuchecks qac and qhs # Alzheimer's dementia # PEG (percutaneous endoscopic gastrostomy) adjustment/replacement/removal --> appreciate gi recs # Placement/dispo to snf The timing of this note does not necessarily reflect the time of the patient was seen. Greatly appreciate consultation! Subjective Allergies: Coded Allergies: No Known Allergies (Unverified , 10/29/18) Subjective 10/31: no events, peg is in, cbc reviewed, she is alert 11/01: cleared for dc by id and psych 11/03: pending placement, cbc was reviewed 11/04: still is pending placement, gt feeds working well, no f/c 11/05: on abx, gtube feeds being tolerated, no f/c 11/06: no fevers, chills or night sweats reported, no major changes Objective Last 24 Hour Vital Signs Date Time Temp Pulse Resp B/P (MAP) Pulse Ox O2 Delivery O2 Flow Rate FiO2 11/06/18 12:00 99.2 106 16 108/67 (81) 97 11/06/18 09:03 102 130/87 11/06/18 09:03 130/87 11/06/18 09:02 102 130/87 11/06/18 09:00 Room Air 11/06/18 08:00 98.7 102 17 130/87 (101) 98 11/06/18 04:00 98.7 110 18 122/72 (89) 97 11/06/18 00:00 97.4 108 16 125/70 (88) 98 11/05/18 21:56 Room Air 11/05/18 21:08 89 16 Room Air 21 11/05/18 20:00 99.1 105 16 123/74 (90) 98 Intake and Output 11/05/18 11/06/18 19:00 07:00 Intake Total 640 ml 580 ml Balance 640 ml 580 ml Free Water 160 ml 100 ml Tube Feeding 480 ml 480 ml Height (Feet): 5 Height (Inches): 0.00 Weight (Pounds): 119 Objective Vitals: reviewed General Appearance: NAD HEENT: normocephalic, atraumatic Neck: non-tender, normal alignment Respiratory/Chest: normal breath sounds bilaterally Cardiovascular/Chest: normal peripheral pulses, normal rate Abdomen: normal bowel sounds, soft, nontender Extremities: normal range of motion Brennan Gonzales MD Nov 06, 2018 16:17
--- NOTE | 2018-11-06 16:24 | Diagnostic Imaging Report ---
Indication: Dysphasia Procedure and findings: Real-time fluoroscopic imaging performed in a lateral projection in conjunction with the speech pathologist evaluation. Variable consistencies of barium given per mouth. Findings: Significant abnormalities of both oral and pharyngeal phases of swallowing are demonstrated. No definite aspiration identified. Laryngeal penetration noted. Total fluoroscopic time: 180 seconds. Abnormal video swallow. Please refer to speech pathology evaluation for more information.
--- NOTE | 2018-11-06 19:15 | Progress Note ---
DATE: 11/06/2018 SUBJECTIVE: This is a female patient who is 68-year-old. She had lot of mental status and confusion, that is why her attending has requested daily psychiatric consultation. She still has altered mental status, confusion, and disorganized thought process. MENTAL STATUS EXAMINATION: This is a 68-year-old female. Appearance is disheveled. Attitude, irritable and agitated. Affect, guarded and restricted. Intellect poor. Mood depressed and anxious. Motor activity, psychomotor agitation. Attention span is poor. Orientation x2. Speech is pressured. Thought process, disorganized and illogical. Insight and judgment is poor. DIAGNOSES: 1. Major depression with psychotic features. 2. Rule out dementia with psychosis. PLAN: Treat her with Namenda 5 mg twice a day and Ativan 0.5 mg mg every 6 hours p.r.n. anxiety and agitation. Provided her with 20 minutes of cognitive behavioral therapy to help identify automatic negative thoughts, help to convert negative thoughts to more positive thoughts to reduce depression, anxiety, and suicidality. Chart reviewed. Discussed with staff. Seen and assessed in her room. A 20 minutes of cognitive behavioral therapy was provided. Sofia Coronel M.D. DR: SARITA JOB#: [id number] CC:
--- NOTE | 2018-11-06 19:23 | NUR ---
HAND-OFF: Report given to SAMIR Gonzalez.
--- NOTE | 2018-11-06 19:26 | NUR ---
HAND-OFF: Report given to Lisa DAWSON.
--- NOTE | 2018-11-06 19:30 | NUR ---
NURSE NOTES: received pt, confused, bed a;arm on, gt feeding in progress,
[2018-11-06 20:00] VITALS: BP 118/78
--- NOTE | 2018-11-06 20:00 | NUR ---
NURSE NOTES:SACRAL REDNESS UNCHANGED FROM PHOTOS, [employer] ORDERED AND APPLIED.
--- NOTE | 2018-11-06 23:58 | Cardiology Progress Note ---
Assessment/Plan Assessment/Plan The patient is seen and examined, full consult note will be dictated. Objective Last 24 Hour Vital Signs Date Time Temp Pulse Resp B/P (MAP) Pulse Ox O2 Delivery O2 Flow Rate FiO2 11/06/18 21:00 Room Air 11/06/18 20:00 99.2 111 18 118/78 (91) 94 11/06/18 16:00 98.3 105 17 117/73 (88) 97 11/06/18 12:00 99.2 106 16 108/67 (81) 97 11/06/18 09:03 102 130/87 11/06/18 09:03 130/87 11/06/18 09:02 102 130/87 11/06/18 09:00 Room Air 11/06/18 08:00 98.7 102 17 130/87 (101) 98 11/06/18 04:00 98.7 110 18 122/72 (89) 97 11/06/18 00:00 97.4 108 16 125/70 (88) 98 Intake and Output 11/05/18 11/06/18 19:00 07:00 Intake Total 640 ml 640 ml Balance 640 ml 640 ml Free Water 160 ml 100 ml Tube Feeding 480 ml 540 ml Aba Aguayo MD Nov 06, 2018 23:58
[2018-11-07 00:01] VITALS: BP 120/62
--- NOTE | 2018-11-07 01:45 | Consultation ---
DATE OF CONSULTATION: 11/06/2018 CARDIOLOGY CONSULTATION CONSULTING PHYSICIAN: Aba Aguayo M.D. REFERRING PHYSICIANS: 1. Nora Alexander M.D. 2. Leonidas Glover D.O. REASON FOR CONSULTATION: Management of accelerated hypertension. HISTORY OF PRESENT ILLNESS: This is a very unfortunate 68-year-old female, who initially presented to the hospital on 10/29/2018 for evaluation and management of a G-tube dislodgement from [facility] facility. Apparently, the patient had pulled out her G-tube. At the time of arrival to the hospital, she did not have any complaint. Her initial vital signs in the emergency department was blood pressure 111/60 mmHg and pulse of 95. Her cardiovascular history is significant for history of hypertension. In the course of the emergency department, the patient's blood pressure dropped to 96/60 mmHg and pulse of 94. The patient was admitted to non-telemetry bed. On 11/05/2018, the patient's blood pressure remained to be low with the systolic blood pressure in the 100 mmHg. Cardiology consultation was made at the request of Dr. Alexander to adjust the dose of blood pressure medication and to avoid hypotension. Of note, the patient has shown ESBL urinary tract infection as well as VRE. PAST MEDICAL HISTORY: 1. Hypertension. 2. Dementia. 3. Failure to thrive. 4. History of dysphagia, status post percutaneous endoscopic gastrostomy placement. 5. VRE. 6. ESBL urinary tract infection. 7. Diabetes mellitus. PAST SURGICAL HISTORY: G-tube placement. MEDICATIONS: List of medications in the nursing facility includes acetaminophen 20 G-tube q.6 h., amlodipine 10 mg G-tube daily, diphenhydramine 25 mg G-tube q.6 h. p.r.n. itching, Colace 100 mg G-tube twice daily, heparin sodium 5000 units subcutaneous q.12 hours, Lantus insulin 12 units subcutaneous at bedtime, lisinopril 10 mg G-tube daily, lisinopril/hydrochlorothiazide 20/25 two tablets G-tube twice daily, lorazepam 0.5 mg q.6 h. p.r.n. anxiety, Namenda 5 mg G-tube twice daily, Reglan 5 mg G-tube q.i.d., metoprolol 75 mg G-tube daily, multivitamin with minerals 1 tablet G-tube daily, Zofran 4 mg G-tube q.4 hours p.r.n. nausea and vomiting, Macrobid 100 mg G-tube q.12 hours for 6 days, MiraLAX 17 g G-tube daily, and 20 mEq G-tube daily. ALLERGIES: No known drug allergies. SOCIAL HISTORY: Denies any tobacco, alcohol, or illicit drug use. FAMILY HISTORY: No premature coronary artery disease in the first-degree relatives. REVIEW OF SYSTEMS: HEENT: Denies any headache, diplopia, or blurred vision. CONSTITUTIONAL: Complains of generalized weakness, but no fever, chills, or night sweats. CARDIOVASCULAR: Denies any chest pain, shortness of breath, PND, orthopnea, or leg swelling. PULMONARY: Denies any cough, hemoptysis, or wheezing. GASTROINTESTINAL: Had pulled her G-tube. Denies any abdominal pain, nausea, vomiting, or diarrhea. GENITOURINARY: Denies any hematuria, dysuria, or incontinence. NEUROLOGY: Denies any motor dysfunction. Sensitive to altered speech. PHYSICAL EXAMINATION: VITAL SIGNS: Blood pressure was 100/65 mmHg, heart rate of 96, respirations of 16, O2 saturation 97%, and temperature 97.8 degrees Fahrenheit. GENERAL: The patient is a very unfortunate 68-year-old female, in no apparent respiratory distress. HEENT: Atraumatic and normocephalic. Anicteric. Pupils are equal, round, and reactive to light and accommodation. Extraocular muscles intact. NECK: JVP less than 5 cm. No carotid bruits. Carotid upstrokes 2+ bilaterally. CARDIOVASCULAR: Normal S1, S2. Regular rate and rhythm. No murmurs, gallops, or rubs. PMI is at fourth intercoastal space in the midclavicular line. LUNGS: Clear bilaterally. ABDOMEN: Soft, nontender, and nondistended. Presence of a G-tube. EXTREMITIES: No evidence of edema, clubbing, or cyanosis. LABORATORY FINDINGS: WBC was 8.5, hemoglobin 9.9, hematocrit of 30.8, and platelet count 606,000. Sodium of 137, potassium is 4.1, chloride 99, bicarbonate 32, BUN of 18, creatinine 0.7, glucose 129, and calcium 10.0. INR is 1.2. ASSESSMENT AND PLAN: This is a very unfortunate 68-year-old female, seen in Cardiology consultation. 1. Hypotension. We would like to decrease the amlodipine to 2.5 mg G-tube daily, continue metoprolol succinate at 50 mg daily, and we will continue lisinopril at 10 mg G-tube daily. Continue to monitor blood pressure. 2. History of diabetes mellitus. The patient will benefit from combination of aspirin and statins. 3. Malfunction G-tube status post replacement. 4. History of failure to thrive. 5. History of dementia. I would like to thank, Dr. Alexander and Dr. Glover, for allowing me to participate in the care of this patient. Aba Aguayo M.D. DR: MALINI JOB#: [id number] CC:
[2018-11-07 04:00] VITALS: BP 114/74
--- NOTE | 2018-11-07 07:24 | NUR ---
HAND-OFF: Report given to Bailey Ford.
--- NOTE | 2018-11-07 07:37 | NUR ---
NURSE NOTES: pt in bed with no sob nor in any form of distress noted. Tolerating well on GT with no aspiration. bed in lowest position. Call light within reach at all time.
[2018-11-07 08:00] VITALS: BP 121/74
[2018-11-07] MEDS: Docusate 100mg/10ml Liq GT SCH (08:37)
[2018-11-07] MEDS: Memantine 5 MG TAB ORAL SCH (08:38)
[2018-11-07] MEDS: Heparin 5000 units/ml inj SUBQ SCH (08:38)
--- NOTE | 2018-11-07 08:38 | General Progress Note ---
Assessment/Plan Problem List: (1) Diabetes mellitus ICD Codes: E11.9 - Type 2 diabetes mellitus without complications SNOMED: 09520139 (2) Hypertension ICD Codes: I10 - Essential (primary) hypertension SNOMED: 17317210 (3) Alzheimer's dementia ICD Codes: G30.9 - Alzheimer's disease, unspecified; F02.80 - Dementia in other diseases classified elsewhere without behavioral disturbance SNOMED: 48407756 (4) PEG (percutaneous endoscopic gastrostomy) adjustment/replacement/removal ICD Codes: Z43.1 - Encounter for attention to gastrostomy SNOMED: 474822812, 306428832 (5) Normocytic anemia ICD Codes: D64.9 - Anemia, unspecified SNOMED: 845668705 Assessment/Plan speech eval appreciated GTF>>> tolerated GT care and flush stable H&H neg stool ob pending placement fu labs Subjective ROS Limited/Unobtainable: No Allergies: Coded Allergies: No Known Allergies (Unverified , 10/29/18) Objective Last 24 Hour Vital Signs Date Time Temp Pulse Resp B/P (MAP) Pulse Ox O2 Delivery O2 Flow Rate FiO2 11/07/18 04:00 97.5 103 20 114/74 (87) 96 11/07/18 04:00 97.5 103 20 114/74 (87) 96 11/07/18 00:01 98.9 104 16 120/62 (81) 97 11/06/18 21:00 Room Air 11/06/18 20:00 99.2 111 18 118/78 (91) 94 11/06/18 16:00 98.3 105 17 117/73 (88) 97 11/06/18 12:00 99.2 106 16 108/67 (81) 97 11/06/18 09:03 102 130/87 11/06/18 09:03 130/87 11/06/18 09:02 102 130/87 11/06/18 09:00 Room Air Intake and Output 11/06/18 11/07/18 19:00 07:00 Intake Total 420 ml 1020 ml Balance 420 ml 1020 ml Free Water 300 ml Tube Feeding 420 ml 720 ml # Voids 4 3 # Bowel Movements 1 1 Height (Feet): 5 Height (Inches): 0.00 Weight (Pounds): 119 General Appearance: no apparent distress EENT: normal ENT inspection Neck: supple Cardiovascular: normal rate Respiratory/Chest: decreased breath sounds Abdomen: normal bowel sounds, non tender, soft Extremities: non-tender Brent Shepherd MD Nov 07, 2018 08:38
[2018-11-07] MEDS ORDERED: Metoprolol Succinate XL 50mg tab ORAL SCH (09:00)
--- NOTE | 2018-11-07 11:56 | NUR ---
[employer] NOTES PT ACCEPTED TO [facility], ROOM 12 BED B.SPOKE WITH PT'S BROTHER MAURILIO, MADE AWARE OF DCP @ THIS TIME. PT TO DC TODAY. NURSE TO CALL REPORT TO [phone].[facility] TO TRANSPORT PT WITH ETA 1330. SKILLED LEVEL OF CARE. [facility] [address] [facility] [id number] [place] [phone]
[2018-11-07 12:00] VITALS: BP 141/92
[2018-11-07] MEDS ORDERED: NITROFURANTOIN100 M2 ORAL (12:57)
--- NOTE | 2018-11-07 12:58 | Infectious Diseases Prog Note ---
Assessment/Plan Assessment/Plan Assessment: GT dislodgment -KUB: Gastrostomy tube within the stomach. No leak identified. Pyuria- assymptomatic- however will treat in the setting of leukocytosis -u/a wbc tnct, nit neg, leuk +3; ucx >100k E. Coli ESBL (S Zosyn, ertapenem, Nitro, bactrim) Afebrile Mild leukocytosis HTN Dementia dysphagia s/p GT FTT SNF resident Plan: -Cont PO Macrobid #10/16 for probable UTI given leukocytosis -ok to discharge on above regimen -10/30 SP IV Vancomycin and Cefepime #1 -10/29 SP Ceftriaxone x1 -f.u cx -Monitor CBC/CMP, temperatures -GT care -GI f/u -wound care per hospital protocol -Aspiration precautions Subjective Allergies: Coded Allergies: No Known Allergies (Unverified , 10/29/18) Subjective afebrile mild leukocytosis off abx bcx neg Objective Vital Signs Last 24 Hour Vital Signs Date Time Temp Pulse Resp B/P (MAP) Pulse Ox O2 Delivery O2 Flow Rate FiO2 11/07/18 12:00 98.9 85 20 141/92 (108) 98 11/07/18 09:00 Room Air 11/07/18 08:38 98 121/74 11/07/18 08:37 98 121/74 11/07/18 08:00 97.7 98 20 121/74 (90) 98 11/07/18 04:00 97.5 103 20 114/74 (87) 96 11/07/18 04:00 97.5 103 20 114/74 (87) 96 11/07/18 00:01 98.9 104 16 120/62 (81) 97 11/06/18 21:00 Room Air 11/06/18 20:00 99.2 111 18 118/78 (91) 94 11/06/18 16:00 98.3 105 17 117/73 (88) 97 Height (Feet): 5 Height (Inches): 0.00 Weight (Pounds): 119 Objective General Appearance: cachetic Lines, tubes and drains: peripheral HEENT: normocephalic, atraumatic Neck: non-tender, normal alignment Respiratory/Chest: chest wall non-tender, lungs clear Breasts: no masses Cardiovascular/Chest: normal rate, no JVD Abdomen: normal bowel sounds, hyperactive bowel sounds Genitourinary/Rectal: normal genital exam, normal prostate exam Current Medications Medications (Trade) Dose Ordered Sig/Bia Route PRN Reason Start Time Stop Time Status Last Admin Dose Admin Acetaminophen (Tylenol) 650 mg Q4H PRN ORAL fever 10/29/18 22:30 11/28/18 22:29 Amlodipine Besylate (Norvasc) 2.5 mg DAILY GT 11/07/18 09:00 12/07/18 08:59 11/07/18 08:38 Docusate Sodium (Colace) 100 mg BID GT 10/30/18 09:00 11/29/18 08:59 11/07/18 08:37 Heparin Sodium (Porcine) (Heparin 5000 units/ml) 5,000 units EVERY 12 HOURS SUBQ 10/30/18 09:00 11/29/18 08:59 11/07/18 08:38 Lisinopril (Zestril) 10 mg DAILY GT 10/30/18 09:00 11/29/18 08:59 11/06/18 09:03 Memantine (Namenda) 5 mg BID ORAL 10/31/18 09:00 11/30/18 08:59 11/07/18 08:38 Metoprolol Succinate (Toprol XL) 50 mg DAILY ORAL 11/07/18 09:00 12/07/18 08:59 11/07/18 08:37 Nitrofurantoin (Macrobid) 100 mg EVERY 12 HOURS ORAL 11/05/18 15:11 12/05/18 15:10 11/07/18 08:37 Ondansetron HCl (Zofran) 4 mg Q6H PRN IVP Nausea & Vomiting 10/29/18 22:30 11/28/18 22:29 Polyethylene Glycol (Miralax) 17 gm DAILYPRN PRN ORAL Constipation 10/29/18 22:30 11/28/18 22:29 Raissa Taylor M.D. Nov 07, 2018 12:58
[2018-11-07] MEDS ORDERED: Tubing IV Secondary IV ONE (14:35)
--- NOTE | 2018-11-07 14:45 | NUR ---
NURSE NOTES: pt discharged to [facility] in [place] picked up by ambulance with stable condition. All discharge instruction given to the nurse lizzeth and verbalized understanding. Iv removed and covered with gauze and taped. no bleeding noted. GTube flushed and clamped. picture taken and uploaded. Belongings given to the ambulance. Juvencio(brother) of pt made aware of pt's discharge.
--- NOTE | 2018-11-07 15:45 | Progress Note ---
DATE: 11/07/2018 SUBJECTIVE: This is a 68-year-old female patient with failure to thrive. She has confusion, disorganized thought process. She has got a decline in cognition below baseline. That is why, her attending physician has requested daily psychiatric consultation. MENTAL STATUS EXAMINATION: This is a 68-year-old female. Appearance disheveled. Attitude, irritable and agitated. Affect, guarded and restricted. Intellect poor. Mood depressed and anxious. Motor activity, psychomotor agitation. Attention span is poor. Orientation x2. Speech is low volume and slurred. Thought process, disorganized and illogical. Insight and judgment is poor. DIAGNOSIS: Major depressive disorder, severe, recurrent with psychotic features, rule out dementia with psychosis. PLAN: Treat her with Namenda 5 mg twice a day. Provide her with 20 minutes of reality-based supportive psychotherapy. Ativan as needed for anxiety. Provide her with 20 minutes cognitive behavioral therapy to help her identify her automatic negative thoughts help to convert those negative thoughts to more positive thoughts to reduce depression, anxiety, and suicidality. Chart reviewed. Discussed with staff. Seen and assessed in her room. Sofia Coronel M.D. DR: ARISTEO JOB#: [id number] CC:
--- NOTE | 2018-11-07 15:59 | General Progress Note ---
Assessment/Plan Assessment/Plan Assessment/Plan # Failure to thrive - decreased bmi and low protein, is peg tube dependent --> cea is 3.3, spep is negative --> upep is also negative --> will also obtain q3d caloric counts --> started mirtazapine as appetite stimulant --> rate feeding per nutrition recs --> per gi team # Anemia of chronic disease due to underlying chronic medical issues, multifactorial --> Anemia workup has been reviewed and ferritin is >1500 --> No evidence of hemolysis is noted, peripheral smear reviewed --> Hgb goal >7. Transfuse prn. --> Epogen or iron at this time is not particularly indicated --> Medications have been reviewed --> evaluate with Gi team prn # Hyperproteinemia with decreased albumin -- this is a dissociation that is abnormal --> spep is negative, upep is negative --> if above results in a m-spike or abnormally enhanced protein, will need to send off immunofixation serum/urine --> in the case of a m-spike or abnormally enhanced protein, will obtain a bone marrow biopsy # Iron overload -- ferritin is 1553, could be related to shavonne transfusion --> may need chelation therapy # Hypertension - sbp goal <140 --> appreciate cards recs # Diabetes mellitus --> iss as needed and accuchecks qac and qhs # Alzheimer's dementia --> continue home meds # PEG (percutaneous endoscopic gastrostomy) adjustment/replacement/removal --> appreciate gi recs # Placement/dispo to snf The timing of this note does not necessarily reflect the time of the patient was seen. Greatly appreciate consultation! Subjective Constitutional: Denies: no symptoms, chills, diaphoresis, fever, malaise, weakness, other Respiratory: Denies: no symptoms, cough, orthopnea, shortness of breath, SOB with excertion, SOB at rest, sputum, stridor, wheezing, other Gastrointestinal/Abdominal: Denies: no symptoms, abdomen distended, abdominal pain, black stools, tarry stools, blood in stool, constipated, diarrhea, difficulty swallowing, nausea, poor appetite, poor fluid intake, rectal bleeding , vomiting, other Genitourinary: Denies: no symptoms, burning, discharge, frequency, flank pain, hematuria, incontinence, pain, urgency, other Neurologic/Psychiatric: Denies: no symptoms, anxiety, depressed, emotional problems, headache, numbness, paresthesia, pre-existing deficit, seizure, tingling, tremors, weakness, other Endocrine: Denies: no symptoms, excessive sweating, flushing, intolerance to cold, intolerance to heat, increased hunger, increased thirst, increased urine, unexplained weight gain, unexplained weight loss, other Allergies: Coded Allergies: No Known Allergies (Unverified , 10/29/18) Subjective 10/31: no events, peg is in, cbc reviewed, she is alert 11/01: cleared for dc by id and psych 11/03: pending placement, cbc was reviewed 11/04: still is pending placement, gt feeds working well, no f/c 11/05: on abx, gtube feeds being tolerated, no f/c 11/06: no fevers, chills or night sweats reported, no major changes 11/07: no events to report, to be d/c today, feeling better Objective Last 24 Hour Vital Signs Date Time Temp Pulse Resp B/P (MAP) Pulse Ox O2 Delivery O2 Flow Rate FiO2 11/07/18 12:00 98.9 85 20 141/92 (108) 98 11/07/18 09:00 Room Air 11/07/18 08:38 98 121/74 11/07/18 08:37 98 121/74 11/07/18 08:00 97.7 98 20 121/74 (90) 98 11/07/18 04:00 97.5 103 20 114/74 (87) 96 11/07/18 04:00 97.5 103 20 114/74 (87) 96 11/07/18 00:01 98.9 104 16 120/62 (81) 97 11/06/18 21:00 Room Air 11/06/18 20:00 99.2 111 18 118/78 (91) 94 11/06/18 16:00 98.3 105 17 117/73 (88) 97 Intake and Output 11/06/18 11/07/18 18:59 06:59 Intake Total 480 ml 960 ml Balance 480 ml 960 ml Free Water 300 ml Tube Feeding 480 ml 660 ml # Voids 4 # Bowel Movements 1 Height (Feet): 5 Height (Inches): 0.00 Weight (Pounds): 119 Objective Vitals: reviewed General Appearance: NAD HEENT: normocephalic, atraumatic Neck: non-tender, normal alignment Respiratory/Chest: normal breath sounds bilaterally Cardiovascular/Chest: normal peripheral pulses, normal rate Abdomen: normal bowel sounds, soft, nontender Extremities: normal range of motion Brennan Gonzales MD Nov 07, 2018 15:59
--- NOTE | 2018-11-07 23:56 | Cardiology Progress Note ---
Assessment/Plan Assessment/Plan 1. Hypotension, continue amlodipine 2.5 mg, metoprolol succinate 50 and lisinopril 10 mg daily. Continue to monitor blood pressure. 2. History of diabetes mellitus, continue aspirin and statins. 3. Malfunction G-tube status post replacement. 4. History of failure to thrive. 5. History of dementia. Subjective Subjective Sinus rhythm at rate of 85. Objective Last 24 Hour Vital Signs Date Time Temp Pulse Resp B/P (MAP) Pulse Ox O2 Delivery O2 Flow Rate FiO2 11/07/18 12:00 98.9 85 20 141/92 (108) 98 11/07/18 09:00 Room Air 11/07/18 08:38 98 121/74 11/07/18 08:37 98 121/74 11/07/18 08:00 97.7 98 20 121/74 (90) 98 11/07/18 04:00 97.5 103 20 114/74 (87) 96 11/07/18 04:00 97.5 103 20 114/74 (87) 96 11/07/18 00:01 98.9 104 16 120/62 (81) 97 Intake and Output 11/06/18 11/07/18 19:00 07:00 Intake Total 420 ml 1080 ml Balance 420 ml 1080 ml Free Water 300 ml Tube Feeding 420 ml 780 ml # Voids 4 3 # Bowel Movements 1 1 Objective HEENT: Atraumatic and normocephalic. Anicteric. Pupils are equal, round, and reactive to light and accommodation. Extraocular muscles intact. NECK: JVP less than 5 cm. No carotid bruits. Carotid upstrokes 2+ bilaterally. CARDIOVASCULAR: Normal S1, S2. Regular rate and rhythm. No murmurs, gallops, or rubs. PMI is at fourth intercoastal space in the midclavicular line. LUNGS: Clear bilaterally. ABDOMEN: Soft, nontender, and nondistended. Presence of a G-tube. EXTREMITIES: No evidence of edema, clubbing, or cyanosis. Aba Aguayo MD Nov 07, 2018 23:56
--- NOTE | 2018-11-10 10:36 | Discharge Summary ---
Discharge Summary Discharge Summary _ DATE OF ADMISSION: 10/29/2018 DATE OF DISCHARGE: 11/07/2018 DISCHARGED BY: Dr Glover REASON FOR ADMISSION: 68 years old female, resident of [facility] facility, with past medical history of hypertension, dysphagia, G-tube, dementia, presented with G-tube dislodgment. Upon evaluation vital signs were stable. G-tube was replaced in the emergency room without complications. KUB confirmed appropriate placement of G tube. Patient was about to be discharged, while patient brother arrived. He was very concerned about his sister, stating that she may have UTI. He reported prior history of UTI and strong odor of urine. Laboratory workup reveal no leukocytosis, hemoglobin 9.9 ,hematocrit 30.8 , chemistry was stable. Urinalysis revealed evidence of possible UTI. Patient admitted for further management CONSULTANTS: senior technical trainer Dr. Aguayo pulmonary Dr. Echevarria ID specialist Dr. Harris GI specialist Dr. Shepherd parking officer/oncologist Dr. Gonzales psychiatrist Dr. Coronel HOSPITAL COURSE: Patient admitted to medical surgical floor. Patient started on IV fluids and empiric antibiotics. Aspiration precaution maintained. DVT prophylaxis provided Urine culture revealed E. coli ESBL. Blood cultures were negative. Antibiotics provided as per infectious disease specialist recommendation. Pyuria was asymptomatic but in the setting of leukocytosis, patient was treated for probable UTI. No fevers. Patient to continue oral antibiotic at the facility to complete the course , as recommended by ID specialist. Patient noted to have anemia. Anemia workup revealed evidence of normocytic anemia. Hemoglobin and hematocrit were closely monitored with goal to keep hemoglobin above 7. Prior to discharge hemoglobin 10.5, hematocrit 32.4. Anemia workup revealed stable iron, elevated ferritin 1553. Stable B12 and folate levels. Stool for occult blood was negative. CEA was within normal limits. Bowel regimen instituted Patient started on PPI Bedside swallow evaluation revealed evidence of dysphagia and high aspiration risk. Patient subsequently undergone video swallow evaluation , which revealed significant abnormalities of both oral and pharyngeal phases of swallowing. No definite aspiration was identified. Per speech therapist recommendations, continue the long-term nonoral feeding /G -tube as a primary nutrition and hydration needs. Patient was slowly initiated on nectar thick liquids diet( juice soup) for oral gratification with strict aspiration/ reflux precaution. Blood pressure was managed with multiply regimen of antihypertensive and remained stable. Artist'S Manager followed. DVT prophylaxis provided. Blood sugar was clsoely monitored. Namenda continued. Supplemental oxygen provided as needed to keep pulse oximetry above 92%. Pulse oximetry was stable on room air prior to discharge. Information Developer followed. Per parking officer, patient had anemia of chronic disease due to underlying chronic medical issues multifactorial. No evidence of hemolysis. Epogen or iron at this time were not particularly indicated. Noted elevated ferritin , probably related to prior transfusion. Patient may need chelation therapy. Monitor ferritin level at the facility. Noted elevated protein with decreased albumin , which was abnormal dissociation. Urine protein electrophoresis pending . Serum protein electrophoresis revealed elevated beta gammaglobulin and mild elevation of alpha-2 , elevation of total globulin. Urine immunofixation was normal. Psychiatrist followed. Psychiatrist diagnosed patient with major depressive disorder, severe, recurrent with psychotic features. Psychiatric medication regimen was optimized as per psychiatrist. Patient was provided with cognitive behavioral therapy. Patient clinically stabilized and was ready for transfer to [facility] facility for continuation of care. FINAL DIAGNOSES: G-tube dislodgment , status post replacement Dysphagia Probably UTI with E coli ESBL Alzheimer dementia Hypertension Diabetes mellitus Major depressive disorder, severe, recurrent , with psychotic features. Hyperproteinemia with decreased albumin Iron overload DISCHARGE MEDICATIONS: See Medication Reconciliation list. DISCHARGE INSTRUCTIONS: Patient was discharged to the [facility] facility. Follow up with medical doctor at the facility. I have been assigned to dictate discharge summary for this account. I was not involved in the patient's management. Neva Lanier NP Nov 10, 2018 10:36
== END 2018-11-07 14:36 | DRG 690 ==
LOC: EDBD 16:29 → EMR 18:40 → 4E 19:14 → EDBEDREQ 19:21 → 4E 23:09
PROC: 0D20XUZ Change Feeding Device in Upper Intestinal Tract, External Approach (ICD-10-PCS; principal; 2018-10-29)
DX: N39.0 Urinary tract infection, site not specified (principal); E46 Unspecified protein-calorie malnutrition; Z43.1 Encounter for attention to gastrostomy; F33.3 Major depressive disorder, recurrent, severe with psychotic symptoms; B96.20 Unspecified Escherichia coli [E. coli] as the cause of diseases classified elsewhere; Z16.12 Extended spectrum beta lactamase (ESBL) resistance; N12 Tubulo-interstitial nephritis, not specified as acute or chronic; Z46.59 Encounter for fitting and adjustment of other gastrointestinal appliance and device; D64.9 Anemia, unspecified; I10 Essential (primary) hypertension; E11.9 Type 2 diabetes mellitus without complications; G30.9 Alzheimer's disease, unspecified; F02.80 Dementia in other diseases classified elsewhere, unspecified severity, without behavioral disturbance, psychotic disturbance, mood disturbance, and anxiety; D47.3 Essential (hemorrhagic) thrombocythemia; D63.8 Anemia in other chronic diseases classified elsewhere; R13.10 Dysphagia, unspecified; E88.09 Other disorders of plasma-protein metabolism, not elsewhere classified; R62.7 Adult failure to thrive; E83.111 Hemochromatosis due to repeated red blood cell transfusions
CPT/HCPCS: 36415; 74018; 74230; 80048; 80053; 81003; 82270; 82378; 82607; 82728; 82746; 82962; 83540; 83550; 83615; 84165; 84439; 84443; 85007; 85025; 85044; 85060; 85610; 85660; 85730; 86334; 87040; 87081; 87086; 87181; 94664; 96365; 99285